=== PATIENT | female | born 1965 | race Caucasian/White ===

== ENCOUNTER → 2017-12-29 10:39 | Outpatient (CLI) | payer OTHER, SELFPAY ==
[2017-12-29 13:35] LABS: Microscopic, Urine URINE MICROSCOPIC (MICROSCOPIC)
[2017-12-29 13:42] LABS: Appearance,Urine CLEAR (Clear); Bilirubin,Urine Negative (Negative); Blood, Urine Negative (Negative); Color,Urine YELLOW (Yellow); Glucose,Urine (UA) Negative (Negative); Ketones,Urine Negative (Negative); Leukocyte Esterase,Urine TRACE (Negative); Nitrate,Urine Negative (Negative); Protein,Urine Negative (Negative); Specific Gravity, Urine <= 1.005 (1.005-1.030); Urobilinogen,Urine 0.2 EU/dl (0.2)
[2017-12-29 14:08] LABS: Alanine Aminotransferase 18 U/L (12-78); Albumin Level 3.8 gm/dL (3.4-5.0); Alkaline Phosphatase 95 U/L (46-116); Anion Gap 11.4 mEq/L (5-15); Aspartate Amino Transferase 15 U/L (15-37); Blood Urea Nitrogen 6 mg/dL (7-18); Calcium 9.2 mg/dL (8.5-10.1); Carbon Dioxide 30 mmol/L (21.0-32.0); Chloride 98 mmol/L (98-107); Chol/HDL Ratio 4.8 (1-3.5); Cholesterol 287 mg/dL (140-200); Creatinine,Serum 0.83 mg/dL (0.55-1.02); Estimated Glomerular Filt Rate 72 ml/min (>60); GFR (African American) 87 ML/MIN (>60); Globulin 3.8 gm/dl (1.3-3.2); Glucose 77 mg/dL (74-106); HDL Cholesterol 60 mg/dL (29-89); LDL Cholesterol 178 mg/dL (0-130); Potassium 4.4 mmoL/L (3.5-5.1); Sodium 135 mmol/L (136-145); T4 (Thyroxine) 10.5 ug/dl (4.7-13.3); Thyroid Stimulating Hormone 3.44 uIU/ml (0.358-3.740); Total Protein,Serum 7.6 gm/dL (6.4-8.2); Triglycerides 247 mg/dL (30-200); VLDL Cholesterol 49 mg/dL (0-40)
[2017-12-29 14:36] LABS: Bacteria,Urine 2+ /lpf; RBC,Urine Occasional #/hpf (0-3)
[2017-12-29 14:39] LABS: Basophils # 0.1 K/mm3 (0-0.2); Basophils % 0.6 % (0.1-2.0); Eosinophils # 0.2 K/mm3 (0.0-0.4); Eosinophils % 1.8 % (0.1-12.0); Hematocrit 44.3 % (37.0-47.0); Hemoglobin 14.4 g/dL (12.2-16.2); Lymphocytes # 2.5 K/mm3 (0.7-4.5); Lymphocytes % 30.8 K/mm3 (10-50); Mean Corpuscular HGB Conc 32.6 g/dL (31.8-35.4); Mean Corpuscular Hemoglobin 29.2 pg (27.0-31.2); Mean Corpuscular Volume 89.7 fl (81-99); Mean Platelet Volume 8.5 fl (7.4-10.4); Monocytes # 0.4 K/mm3 (0.1-1.0); Monocytes % 5.2 % (1.7-9.3); Neutrophils # 5.1 K/mm3 (1.8-7.8); Neutrophils % 61.5 % (37.0-80.0); Platelet Count 315 K/mm3 (142-424); Red Blood Count 4.94 M/mm3 (4.20-5.40); Red Cell Distribution Width 13.4 % (11.5-17.5); White Blood Count 8.2 K/mm3 (4.8-10.8)
[2018-01-01 06:15] LABS: Vitamin D 25 Hydroxy 35.5 ng/mL (30.0-100.0)
== END ==
PROVIDERS: Visit Provider Emergency Medicine
DX: F32.9 Major depressive disorder, single episode, unspecified (principal); G89.29 Other chronic pain
CPT/HCPCS: 80053; 80061; 81001; 82652; 84436; 84443; 85025; 87086

== ENCOUNTER → 2018-01-30 13:47 | Outpatient (CLI) | payer OTHER, SELFPAY ==
[2018-01-30 15:28] LABS: Amphetamine/Metha Screen,Urine Negative ng/mL (<1000); Barbiturates Screen,Urine Negative ng/mL (<200); Benzodiazepines Screen,Urine Negative ng/mL (<200); Cannabinoid Screen,Urine Negative ng/mL (<50); Cocaine Screen,Urine Negative ng/mL (<300); Methadone Screen,Urine Negative ng/mL (<300); Opiate Screen,Urine Negative ng/mL (<300); Phencyclidine Screen,Urine Negative ng/mL (<25)
== END ==
PROVIDERS: Visit Provider Nurse Practitioner Family
DX: Z79.899 Other long term (current) drug therapy (principal)
CPT/HCPCS: 80305

== ENCOUNTER → 2018-03-06 10:39 | Outpatient (CLI) | payer OTHER, SELFPAY ==
--- NOTE | 2018-03-06 10:41 | MR_ITS ---
MR lumbar spine wo con, X line MR 3-d myelogram/MRCP Ordering Physician: Chauncey Sam MD Patient Age: 52 years: Female HISTORY: ITS.REASON: low back pain TECHNIQUE: Sagittal STIR, T1, T2, axial T1 and T2. On 1.5T Siemens wide bore MRI. 3-D MR myelogram image set obtained & performed on MRI workstation. Additional sagittal thin section T2 weighted dataset obtained from this latter acquisition as well (---76 CPT) COMPARISON :CT abdomen and pelvis May 2009 FINDINGS Vertebral bodies are intact no compression fracture. No lesion evident. Subtle inhomogeneous T1 signal of the vertebral bodies nonspecific but could reflect anemia or history of smoking. No abnormal T2 signal foci. ... Slight inhomogeneous T1 signal could reflect some minor fatty marrow changes.Not uncommon finding and smokers or middle-aged females particularly if mild anemic The disc spaces are well hydrated well-maintained no disc herniation nor spinal stenosis. Generous caliber osseous spinal canal and thecal sac. The disc are intact at all levels with no remarkable disc bulge nor or protrusion. L5/S1. Disc intact mild facet arthropathy and hypertrophy L4/5. Disc intact. Mild facet arthropathy. Minimal fluid of both facet joints. No foramen widely patent here at all levels L3/4 disc unremarkable L2/3 disc intact unremarkabl L1/2 disc intact T12/L1 disc intact unremarkable as is T11/12. Conus ends appropriately at L1/L2 level. 3-D MRI myelogram image set demonstrates generous caliber spinal canal Kidney included and grossly unremarkable. No hydronephrosis There is some dependent fluid noted subcutaneous tissues posterior back, overlying the spinous processes IMPRESSION------- . 1. Lumbar spine intact. No significant appearing findings No disc protrusion, nor spinal stenosis.. Vertebral bodies and disc spaces intact. 2.. Only question perhaps scant early facet arthropathy changes at the lower L-spine. Unimpressive.\ 3. Nonspecific likely dependent fluid/ mild edema at subcutaneous fat of the lower back, overlying spinous processes... May merely reflect some prolonged supine positioning prior to the scan.
== END ==
PROVIDERS: PCP Emergency Medicine; Visit Provider Emergency Medicine
DX: M54.5 Low back pain (principal)
CPT/HCPCS: 72148; 76376

== ENCOUNTER → 2018-03-27 17:29 | Outpatient (CLI) | payer OTHER, SELFPAY ==
[2018-03-27 18:03] LABS: Basophils # 0.1 K/mm3 (0-0.2); Basophils % 0.8 % (0.1-2.0); Eosinophils # 0.2 K/mm3 (0.0-0.4); Eosinophils % 1.8 % (0.1-12.0); Hematocrit 43.1 % (37.0-47.0); Hemoglobin 14.1 g/dL (12.2-16.2); Lymphocytes # 2.4 K/mm3 (0.7-4.5); Mean Corpuscular HGB Conc 32.8 g/dL (31.8-35.4); Mean Corpuscular Hemoglobin 30.2 pg (27.0-31.2); Mean Corpuscular Volume 92.1 fl (81-99); Mean Platelet Volume 8.3 fl (7.4-10.4); Monocytes # 0.5 K/mm3 (0.1-1.0); Monocytes % 4.8 % (1.7-9.3); Neutrophils # 6.6 K/mm3 (1.8-7.8); Neutrophils % 67.6 % (37.0-80.0); Platelet Count 373 K/mm3 (142-424); Red Blood Count 4.68 M/mm3 (4.20-5.40); Red Cell Distribution Width 14.2 % (11.5-17.5); White Blood Count 9.7 K/mm3 (4.8-10.8)
[2018-03-27 18:20] LABS: Alanine Aminotransferase 16 U/L (12-78); Albumin Level 3.2 gm/dL (3.4-5.0); Albumin/Globulin Ratio 0.9 (1.1-1.8); Alkaline Phosphatase 102 U/L (46-116); Anion Gap 14.3 mEq/L (5-15); Aspartate Amino Transferase 18 U/L (15-37); Bilirubin,Total 0.6 mg/dL (0.2-1.0); Blood Urea Nitrogen 5 mg/dL (7-18); Calcium 8.7 mg/dL (8.5-10.1); Carbon Dioxide 28 mmol/L (21.0-32.0); Chloride 104 mmol/L (98-107); Estimated Glomerular Filt Rate 75 ml/min (>60); GFR (African American) 91 ML/MIN (>60); Globulin 3.6 gm/dl (1.3-3.2); Glucose 85 mg/dL (74-106); Potassium 4.3 mmoL/L (3.5-5.1); Sodium 142 mmol/L (136-145); Total Protein,Serum 6.8 gm/dL (6.4-8.2)
[2018-03-27 18:22] LABS: C-Reactive Protein < 0.2 mg/L (0.0-0.9)
[2018-03-27 19:50] LABS: Erythrocyte Sedimentation Rate 30 mm/hr (0-30)
== END ==
PROVIDERS: Visit Provider Emergency Medicine
DX: E78.5 Hyperlipidemia, unspecified (principal)
CPT/HCPCS: 80053; 85025; 85651; 86140

== ENCOUNTER → 2018-04-06 14:20 | Outpatient (CLI) | payer OTHER, SELFPAY ==
--- NOTE | 2018-04-06 14:21 | MR_ITS ---
MR head/brain wo con Ordering Physician: Chauncey Sam MD Patient Age: 52 years: Female HISTORY: ITS.REASON: falls, unsteady gait TECHNIQUE: MRI the brain without contrast . Multiplanar FLAIR, T1, T2 weighted images along with axial diffusion/ADC imaging performed on 1.5 T. Siemens, MRI. . COMPARISON :CT head without contrast 08/22/2012 FINDINGS MRI brain appears normal limits. No mass lesion. No mass effect. No infarct nor areas of recent ischemia evident. No territorial infarct. Normal anatomy. Normal cranial cervical junction. Normal sella turcica. Generous but normal pituitary for age... Suprasellar cistern clear. .. Regarding dizziness the posterior fossa appears satisfactory. CP angles are clear. Cranial nerve VII and VIII unremarkable on this standard survey study. IACs symmetric. .. Fourth ventricle appears normal. Cerebellum on appears satisfactory. Scant signal at the left cerebral peduncle most likely reflects a generous perivascular space.-No associated gliosis signal here on FLAIR images Also note few perivascular spaces at floor the basal ganglia bilaterally-these also lack FLAIR gliosis signal. Mastoid air cells are most part clear; with only some scant mucosal thickening,/very minor mastoid effusion involving a few of the mastoid air cells towards right mastoid tip. . visualized paranasal sinuses are clear. Moderate engorgement nasal turbinates with deviation nasal septum to the right but noted. IMPRESSION 1. MR brain with No significant appearing findings ..No mass lesion. No infarct nor ischemia. ... Generous but normal volume pituitary for age noted.. 2.. Regarding dizziness.: The CP angles are clear IACs unremarkable. & Posterior fossa satisfactory. Only note Scant mucosal thickening at right mastoid tip air cells, very minimal & not felt to be of significance Paranasal sinuses clear and unremarkable .
== END ==
PROVIDERS: PCP Emergency Medicine; Visit Provider Emergency Medicine
DX: R26.81 Unsteadiness on feet (principal); W19.XXXA Unspecified fall, initial encounter
CPT/HCPCS: 70551

== ENCOUNTER → 2018-06-15 11:16 | Outpatient (CLI) | payer OTHER, SELFPAY ==
[2018-06-15 11:54] LABS: Amphetamine/Metha Screen,Urine Negative ng/mL (<1000); Barbiturates Screen,Urine Negative ng/mL (<200); Benzodiazepines Screen,Urine Negative ng/mL (<200); Cannabinoid Screen,Urine Negative ng/mL (<50); Cocaine Screen,Urine Negative ng/mL (<300); Methadone Screen,Urine Negative ng/mL (<300); Opiate Screen,Urine Positive ng/mL (<300); Phencyclidine Screen,Urine Negative ng/mL (<25)
== END ==
PROVIDERS: Visit Provider Nurse Practitioner Family
DX: Z79.899 Other long term (current) drug therapy (principal)
CPT/HCPCS: 80305

== ENCOUNTER → 2018-06-27 15:16 | Outpatient (CLI) | payer OTHER, SELFPAY ==
--- NOTE | 2018-06-27 15:19 | NVE_ITS ---
Venous Exam Indications: 729.5 Pain in limb. IMPRESSIONS 1. There is no evidence of significant Reflux. 2. No evidence of deep or superficial vein thrombosis involving the left lower extremity Left lower extremity venous duplex evaluation. Doppler flow study including spectral analysis, color and penaloza scale imaging. Location: Vascular laboratory. Patient status: Outpatient. Tables: Venous flow and imaging: + +-------+ + Location Overall Flow properties + +-------+ + Left common femoral Patent Normal phasicity; spontaneous; normal augmentation; compressible + +-------+ + Left saphenofemoral junction Patent Compressible + +-------+ + Left profunda femoral Patent Compressible + +-------+ + Left femoral Patent Normal phasicity; spontaneous; normal augmentation; compressible + +-------+ + Left greater saphenous Patent Normal phasicity; spontaneous; normal augmentation; compressible + +-------+ + Left popliteal Patent Normal phasicity; spontaneous; normal augmentation; compressible + +-------+ + Left posterior tibial Patent Compressible + +-------+ + Left peroneal Patent Compressible + +-------+ + Left gastrocnemius Patent Compressible + +-------+ + Left soleal Patent Compressible + +-------+ + (Report amended ) Electronically signed by: Gómez Soto [id number]
[2018-06-27 16:21] LABS: Basophils # 0.1 K/mm3 (0-0.2); Basophils % 0.5 % (0.1-2.0); Eosinophils # 0.2 K/mm3 (0.0-0.4); Eosinophils % 1.3 % (0.1-12.0); Hematocrit 42.9 % (37.0-47.0); Hemoglobin 13.8 g/dL (12.2-16.2); Lymphocytes # 2.6 K/mm3 (0.7-4.5); Mean Corpuscular HGB Conc 32.1 g/dL (31.8-35.4); Mean Corpuscular Hemoglobin 29.2 pg (27.0-31.2); Mean Corpuscular Volume 90.9 fl (81-99); Mean Platelet Volume 7.2 fl (7.4-10.4); Monocytes # 0.8 K/mm3 (0.1-1.0); Monocytes % 4.1 % (1.7-9.3); Neutrophils # 14.8 K/mm3 (1.8-7.8); Neutrophils % 80.2 % (37.0-80.0); Platelet Count 340 K/mm3 (142-424); Red Blood Count 4.72 M/mm3 (4.20-5.40); Red Cell Distribution Width 13.6 % (11.5-17.5); White Blood Count 18.4 K/mm3 (4.8-10.8)
[2018-06-27 16:27] LABS: MANUAL DIFFERENTIAL MANUAL DIFFERENTIAL (MANUAL DIFF)
[2018-06-27 18:07] LABS: Eosinophils % 1 % (0-3); Lymphocytes % 11 % (10-50); Monocytes % 5 % (2-9); Neutrophils % 83 % (42-76); Total Cells Counted 100
[2018-06-27 18:08] LABS: Platelet Estimate Normal; RBC Morphology Normal
[2018-06-27 18:18] LABS: Erythrocyte Sedimentation Rate 21 mm/hr (0-30)
[2018-06-27 18:46] LABS: Alanine Aminotransferase 15 U/L (12-78); Albumin Level 2.8 gm/dL (3.4-5.0); Albumin/Globulin Ratio 0.8 (1.1-1.8); Alkaline Phosphatase 110 U/L (46-116); Anion Gap 15.7 mEq/L (5-15); Aspartate Amino Transferase 18 U/L (15-37); Bilirubin,Total 0.4 mg/dL (0.2-1.0); Blood Urea Nitrogen 6 mg/dL (7-18); Calcium 8.6 mg/dL (8.5-10.1); Carbon Dioxide 26 mmol/L (21.0-32.0); Chloride 103 mmol/L (98-107); Creatinine,Serum 0.86 mg/dL (0.55-1.02); Estimated Glomerular Filt Rate 69 ml/min (>60); GFR (African American) 84 ML/MIN (>60); Globulin 3.5 gm/dl (1.3-3.2); Glucose 102 mg/dL (74-106); Potassium 3.7 mmoL/L (3.5-5.1); Sodium 141 mmol/L (136-145); T4 (Thyroxine) 10.7 ug/dl (4.7-13.3); Thyroid Stimulating Hormone 6.03 uIU/ml (0.358-3.740); Total Protein,Serum 6.3 gm/dL (6.4-8.2); Uric Acid 4.8 mg/dL (2.6-7.2)
[2018-06-27 18:48] LABS: C-Reactive Protein < 0.2 mg/L (0.0-0.9)
== END ==
PROVIDERS: PCP Nurse Practitioner Family; Visit Provider Nurse Practitioner Family
DX: M79.605 Pain in left leg (principal); M79.89 Other specified soft tissue disorders; R53.83 Other fatigue
CPT/HCPCS: 36415; 80053; 84436; 84443; 84550; 85007; 85025; 85651; 86140; 93971

== ENCOUNTER → 2018-09-19 10:05 | Outpatient (CLI) | payer OTHER, SELFPAY ==
--- NOTE | 2018-09-19 10:18 | XR_ITS ---
XR knee LT 2V HISTORY: ITS.REASON: LEE KNEE PAIN ORDERING PHYSICIAN: Referral Provider, PATIENT AGE: 53 years COMPARISON: None FINDINGS: No fracture or dislocation. No lytic or blastic change. Normal mineralization. No significant arthritic changes evident. There is some minimal linear calcification along the lateral compartment of the knee suggesting minimal chondrocalcinosis IMPRESSION: Minimal chondrocalcinosis of the lateral meniscus otherwise negative
--- NOTE | 2018-09-19 10:18 | XR_ITS ---
XR knee RT 2V HISTORY: ITS.REASON: LEE KNEE PAIN ORDERING PHYSICIAN: Referral Provider, PATIENT AGE: 53 years COMPARISON: None FINDINGS: No fracture or dislocation. No lytic or blastic change. Normal mineralization. No significant arthritic changes evident. No other significant findings IMPRESSION: Negative Knee
== END ==
PROVIDERS: PCP Emergency Medicine; Visit Provider Nurse Practitioner Family
DX: M25.561 Pain in right knee (principal); M25.562 Pain in left knee
CPT/HCPCS: 73560

== ENCOUNTER → 2019-04-03 14:41 | Outpatient (CLI) | payer MEDICAID, SELFPAY ==
--- NOTE | 2019-04-03 14:44 | XR_ITS ---
PROCEDURE: XR LUMBAR SPINE 2-3V CLINICAL INDICATION: Lower back pain COMPARISON: No exams were available for comparison FINDINGS: There is mild thoracolumbar curvature convex right. No fracture or dislocation. No lytic or blastic change. The disc spaces are well preserved. IMPRESSION: No acute findings. Dictated by: Gómez Soto MD 04/03/2019 17:44 Electronically signed by Gómez Soto MD in [place] 04/03/2019 17:44
== END ==
PROVIDERS: PCP Emergency Medicine; Visit Provider Nurse Practitioner Family
DX: M54.5 Low back pain (principal)
CPT/HCPCS: 72100

== ENCOUNTER 2019-08-18 15:25 | Emergency (ER) | payer MEDICAID, SELFPAY ==
[2019-08-18 15:26] VITALS: BP 120/78; PULSE 94; RESP 21; TEMP 36.9; O2SAT 93; BMI 25.0
--- NOTE | 2019-08-18 15:50 | HMH.EDUTC ---
[facility] [place] Clinical Impression: Ankle edema, bilateral Disposition: Home, Self-Care Condition on Discharge: Good Instructions: Edema (Alternative Therapy), DI for Dependent Edema Additional Instructions: Go home and elevate feet above the level of your heart, prop on pillows or sit in recliner *Follow up at Dr Singh office in the morning at 9am be there for further evaluation and examination *Monitor your salt intake Low sodium diet Return if needed Straight to ER if any life threatening symptoms Referrals: Chauncey Sam MD [Primary Care Provider] - 08/19/19 9:00 am (Be at the office at 9am tomorrow) Time of Disposition: 16:14 Medical Decision Making - Cirilo Inquiry Pt receiving controlled substance: No Cirilo was queried for this patient: No Vital Signs: 08/18/19 15:26 Temperature 98.4 F Temperature Source Oral Pulse Rate [Radial] 94 H Respiratory Rate 21 Blood Pressure [Right Arm] 120/78 Blood Pressure Mean [Right Arm] 92 Blood Pressure Source [Right Arm] Automatic Cuff Blood Pressure Position [Right Arm] Sitting 02 Sat by Pulse Oximetry 93 L Oxygen Delivery Method Room Air Orders (Tests/Meds): ED MEDICATIONS Discontinued Medications Generic Name Dose Route Start Last Admin Trade Name Freq PRN Reason Stop Dose Admin Enoxaparin Sodium 40 mg 08/18/19 16:00 08/18/19 16:11 Lovenox 40mg/0.4ml Syringe SQ 08/18/19 16:01 40 mg ONCE ONE Administration Medical Decision Narrative: Discussed patient with Dr Sam and he advised prophylactic dose of Lovenox, and have her be at the office at 9am in the morning Lovenox dosed per pharmacy [facility] [place] HPI - General Stated complaint: feet,swollen Time Seen by Provider: 08/18/19 15:50 Mode of Arrival: Ambulatory Source of Information: Patient Limitations: No Limitations Description of Symptoms (Recalled from Triage Doc. by RN): bilateral feet swelling HEENT Symptoms (Recalled from RN notes): No Resp Symptoms (Recalled from RN notes): No Skin Symptoms (Recalled from RN notes): Yes MS Symptoms (Recalled from RN notes): No Functional Status (Recalled from RN notes): wnl - History of Present Illness Provider Complaint: Patient states that she has never had swelling in her feet States that she recently rode in a car to [place] with family and noticed after she got there that both her feet was swollen State that she wasnt able to do much there and they seemed to get a little better but today as she was riding home in the car they swelled up again so she came straight here States that she hasnt felt short of breath or had chest pain but was worried when her feet was still swollen - Related Data Home Medications Medication Instructions Recorded Confirmed hydrocodone 10 mg-acetaminophen 1 tab PO QHS PRN 06/15/18 05/25/19 325 mg tablet gabapentin 800 mg tablet 800 mg PO TID 09/07/18 05/25/19 Previous Rx's Medication Instructions Recorded amitriptyline 10 mg tablet 20 mg PO QHS #180 tab 01/30/19 methocarbamol 500 mg tablet 500 mg PO TID #90 tab 04/08/19 levothyroxine 75 mcg tablet 75 mcg PO DAILY #90 tab 05/09/19 sumatriptan succinate 100 mg tablet 100 mg PO DAILY PRN #9 tab 05/09/19 vilazodone 20 mg tablet 20 mg PO DAILY #30 tab 05/09/19 azithromycin 250 mg tablet 250 mg PO QDAY #6 tab 05/25/19 benzonatate 100 mg capsule 100 mg PO TID PRN #30 cap 05/25/19 atorvastatin 10 mg tablet 10 mg PO QHS #90 tab 06/07/19 ondansetron HCl 4 mg tablet 4 mg PO TID #30 tab 06/07/19 meloxicam 15 mg tablet See Rx Instructions .ROUTE 07/25/19 .COMPLEX #90 unspecified Allergies Allergy/AdvReac Type Severity Reaction Status Date / Time amoxicillin Allergy Verified 05/25/19 11:44 diphenhydramine Allergy Verified 05/25/19 11:44 [From Benadryl] Penicillins Allergy Verified 05/25/19 11:44 hydrocodone AdvReac Mild Itching Verified 05/25/19 11:44 oxycodone AdvReac Mild itching Verified 05/25/19 11:44 - Worker's Comp Is this
[2019-08-18 16:26] VITALS: BP 120/78; PULSE 94; RESP 21; TEMP 36.9; O2SAT 93
== END 2019-08-18 16:27 | disposition home or self-care (01) ==
PROVIDERS: Emergency Provider Nurse Practitioner; PCP Emergency Medicine
DX: R22.43 Localized swelling, mass and lump, lower limb, bilateral (principal); F33.1 Major depressive disorder, recurrent, moderate; E78.5 Hyperlipidemia, unspecified; G43.709 Chronic migraine without aura, not intractable, without status migrainosus; Z88.0 Allergy status to penicillin; Z88.5 Allergy status to narcotic agent; F17.210 Nicotine dependence, cigarettes, uncomplicated; Z79.899 Other long term (current) drug therapy
CPT/HCPCS: 96372; 99201

== ENCOUNTER → 2019-08-19 11:00 | Outpatient (CLI) | payer MEDICAID, SELFPAY ==
--- NOTE | 2019-08-19 11:02 | CA_ITS ---
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 Indications Lower Extremity Edema: edema Vein Imaging CFV (R): compressive, spontaneous, phasic, augmentation FEM (R): compressive, spontaneous, phasic, augmentation POP (R): compressive, spontaneous, phasic, augmentation PTV (R): Compressible GSV (R): Compressible Peroneals (R):Compressible CFV (L): compressive, spontaneous, phasic, augmentation FEM (L): compressive, spontaneous, phasic, augmentation POP (L): compressive, spontaneous, phasic, augmentation PTV (L): Compressible GSV (L): Compressible Peroneals (L):Compressible GAS (L): Compressible Findings No evidence of DVT or superficial thrombophlebitis in the veins scanned of the right lower extremity. No evidence of DVT or superficial thrombophlebitis in the veins scanned of the left lower extremity. Conclusion No evidence of DVT or superficial thrombophlebitis in the veins scanned of the right lower extremity. No evidence of DVT or superficial thrombophlebitis in the veins scanned of the left lower extremity. Electronically signed by : Gómez Soto MD 08/19/2019 16:15:36
[2019-08-19 12:35] LABS: Basophils # 0.2 K/mm3 (0-0.2); Basophils % 1.3 % (0.1-2.0); Eosinophils # 0.2 K/mm3 (0.0-0.4); Eosinophils % 1.2 % (0.1-12.0); Hematocrit 47.5 % (37.0-47.0); Hemoglobin 15.3 g/dL (12.2-16.2); Lymphocytes # 2.5 K/mm3 (0.7-4.5); Lymphocytes % 19.3 % (10-50); Mean Corpuscular HGB Conc 32.3 g/dL (31.8-35.4); Mean Corpuscular Hemoglobin 30.1 pg (27.0-31.2); Mean Corpuscular Volume 93.1 fl (81-99); Mean Platelet Volume 7.9 fl (7.4-10.4); Monocytes # 0.5 K/mm3 (0.1-1.0); Monocytes % 3.7 % (1.7-9.3); Neutrophils # 9.7 K/mm3 (1.8-7.8); Neutrophils % 74.4 % (37.0-80.0); Platelet Count 287 K/mm3 (142-424); Red Cell Distribution Width 14.3 % (11.5-17.5)
[2019-08-19 12:58] LABS: Erythrocyte Sedimentation Rate 10 mm/hr (0-30)
[2019-08-19 13:01] LABS: INR 0.99 (0.9-1.1); Prothrombin Time 10.2 seconds (9.4-11.8)
[2019-08-19 13:03] LABS: Alanine Aminotransferase 10 U/L (12-78); Albumin Level 3.7 g/dl (3.5-5.0); Albumin/Globulin Ratio 1.2 (1.1-1.8); Alkaline Phosphatase 111 U/L (38-126); Anion Gap 7.8 mEq/L (5-15); Aspartate Amino Transferase 21 U/L (14-36); Bilirubin,Total 0.4 mg/dl (0.2-1.3); Blood Urea Nitrogen 7 mg/dl (7-17); Calcium 9.3 mg/dl (8.4-10.2); Carbon Dioxide 34 mmol/L (22.0-30.0); Chloride 102 mmol/L (98-107); Chol/HDL Ratio 3.5 (1-3.5); Cholesterol 201 mg/dl (140-200); Estimated Glomerular Filt Rate 65 ml/min (>60); GFR (African American) 79 ML/MIN (>60); Glucose 82 mg/dl (74-100); HDL Cholesterol 58 mg/dl (40-60); Potassium 4.8 mmoL/L (3.5-5.1); Sodium 139 mmol/L (136-145); Total Protein,Serum 6.7 g/dl (6.3-8.2); Triglycerides 211 mg/dl (30-150); VLDL Cholesterol 42 mg/dL (0-40)
[2019-08-19 13:15] LABS: C-Reactive Protein 3.6 mg/L (0-4); Direct LDL Cholesterol 102.23 mg/dL (100-129)
[2019-08-19 13:23] LABS: T4 (Thyroxine) 12.4 ug/dl (5.53-11.0)
[2019-08-19 13:36] LABS: Thyroid Stimulating Hormone 2.62 uIU/mL (0.465-4.68)
[2019-08-20 09:52] LABS: Vitamin D 25 Hydroxy 27.2 ng/mL (30.0-100.0)
[2019-08-20 13:09] LABS: Sjogren's Anti-SS-A <0.2 AI (0.0-0.9)
[2019-08-20 13:41] LABS: Sjogren's Anti-SS-B <0.2 AI (0.0-0.9)
[2019-08-22 10:06] LABS: Antinuclear Antibodies (ANA) Negative
== END ==
LOC: RAD 11:02 → RT 11:07
PROVIDERS: PCP Emergency Medicine; Visit Provider Physician Assistant
DX: M25.471 Effusion, right ankle (principal); M25.472 Effusion, left ankle; E05.00 Thyrotoxicosis with diffuse goiter without thyrotoxic crisis or storm; M25.50 Pain in unspecified joint; R68.2 Dry mouth, unspecified
CPT/HCPCS: 36415; 80053; 80061; 82652; 84436; 84443; 85025; 85610; 85651; 86038; 86140; 86235; 93970

== ENCOUNTER 2019-11-10 16:30 | Inpatient (IN) | payer MEDICAID, SELFPAY ==
[2019-11-10] VITALS (10 sets, daily range): BP systolic 110–151; BP diastolic 76–100; PULSE 70–98; RESP 12–19; TEMP 36.6–37.5; O2SAT 60–98; BMI 25.7; BMI 27.3
--- NOTE | 2019-11-10 16:35 | PC.NURSE ---
NOTIFIED MD OF PT O2 SATS, RT CALLED, PT PLACED ON 4L NC, ABG OBTAINED PER RT.
--- NOTE | 2019-11-10 17:05 | HMH.EDGENADL ---
ED Disposition Clinical Impression: Respiratory failure with hypoxia Qualifiers: Chronicity: acute Qualified Code(s): J96.01 - Acute respiratory failure with hypoxia Altered mental status Qualifiers: Altered mental status type: somnolence Qualified Code(s): R40.0 - Somnolence Disposition: Admitted As Inpatient Condition on Discharge: Serious - Critical Care Critical Care Time: Yes Attestation: On 11/10/19, the high probability of a clinically significant, sudden or life threatening deterioration of the following system(s) required my full and direct attention, intervention and personal management. The time I documented below is in addition to time spent performing reported procedures but includes the following listed in this critical care notation. Vital system(s) involved:: Respiratory Failure My critical care processes included: Assessment & monitoring of V/S, Initial and Re-exams, Data Review/Interpretation, Coordinating Care, Medication Orders and management, Documentation Medical Decision Making - Medical Records Medical records reviewed: Yes: I reviewed the patient's medical records. - Cirilo Inquiry Pt receiving controlled substance: No Vital Signs: 11/10/19 16:31 11/10/19 17:01 11/10/19 17:30 Temperature 99.5 F Temperature Source Rectal Pulse Rate [Right] 96 H 98 H 86 Respiratory Rate 12 17 14 Blood Pressure [Right Arm] 110/76 112/76 140/100 H Blood Pressure Mean [Right Arm] 87 88 113 02 Sat by Pulse Oximetry 60 L 98 92 L Oxygen Delivery Method Room Air Oxygen Flow Rate (LPM) 11/10/19 18:00 11/10/19 19:00 Temperature Temperature Source Pulse Rate [Right] 88 Respiratory Rate 17 Blood Pressure [Right Arm] 121/78 Blood Pressure Mean [Right Arm] 92 02 Sat by Pulse Oximetry 85 L Oxygen Delivery Method Nasal Cannula Vapotherm Oxygen Flow Rate (LPM) 5 20 - Lab Data Lab results reviewed: Yes: I reviewed the patient's lab results. Lab Results 11/10/19 16:50: POC Glucose 171 H 11/10/19 17:05: WBC 14.2 H, RBC 5.04, Hgb 14.8, Hct 46.5, MCV 92.3, MCH 29.4, MCHC 31.9, RDW 15.0, Plt Count 305, MPV 7.8, Neut % (Auto) 75.8, Lymph % (Auto) 18.5, Wirt % (Auto) 4.9, Eos % (Auto) 0.2, Baso % (Auto) 0.6, Neut # (Auto) 10.8 H, Lymph # (Auto) 2.6, Wirt # (Auto) 0.7, Eos # (Auto) 0.0, Baso # (Auto) 0.1 11/10/19 17:05: Sodium 140, Potassium 4.0, Chloride 98, Carbon Dioxide 31 H, Anion Gap 15.0, BUN 12, Creatinine 0.80, Estimated Creat Clear 86, Estimated GFR 75, Est GFR ( Amer) 90, Glucose 154 H, Calcium 8.7, Total Bilirubin 1.1, AST 109 H, ALT 37, Alkaline Phosphatase 118, Troponin I 0.07 H, Total Protein 6.9, Albumin 3.7, Globulin 3.2, Albumin/Globulin Ratio 1.2, Salicylates < 1.0 L, Acetaminophen < 10 L 11/10/19 17:05: Urine Opiates Screen Positive H, Urine Methadone Screen Negative, Ur Barbituates Screen Negative, Ur Phencyclidine Scrn Negative, Ur Amphetamines Screen Negative, U Benzodiazepines Scrn Negative, Urine Cocaine Screen Negative, U Marijuana (THC) Screen Negative 11/10/19 17:05: Plasma/Serum Alcohol < 10 11/10/19 17:05: Urine Color Yellow, Urine Appearance Clear, Urine pH 5.5, Ur Specific [place] >= 1.030, Urine Protein Trace, Urine Glucose (UA) Negative, Urine Ketones Negative, Urine Blood Negative, Urine Nitrate Negative, Urine Bilirubin Negative, Urine Urobilinogen 0.2, Ur Leukocyte Esterase Negative, Urine RBC Occasional, Urine WBC Occasional, Ur Squamous Epith Cells 3-5, Urine Bacteria None, Hyaline Casts 3-5, Urine Mucus 1+ 11/10/19 17:05: SARS-CoV-2 IgG Ab (Rapid) Negative, SARS-CoV-2 IgM Ab (Rapid) Negative 11/10/19 17:05: D-Dimer 0.94 11/10/19 17:15: Lactate 3.4 H 11/10/19 17:20: Specimen Source R/r, O2 % 5, ABG pH 7.41, ABG pCO2 46.2 H, ABG pO2 46.2 L, ABG HCO3 28.3 H, ABG Total CO2 29.7 H, ABG O2 Saturation 85 L*, ABG Base Excess 3.6 H, Gómez Test Y Result diagrams: 11/10/19 17:05 11/10/19 17:05 Orders (Tests/Meds): ED MEDICATIONS Generic Name Dose Route Start Last Ad
--- NOTE | 2019-11-10 17:11 | ECG_ITS ---
APPROVED REPORT Exam: Resting ECG HR:92 bpm ECG Measurements Heart Rate 92 AXES OK 170 P 53 QRSd 84 QRS -3 QT 388 T 3 QTc 479 <Conclusion> Normal sinus rhythm Nonspecific ST and T wave abnormality Prolonged QT Abnormal ECG Electronically signed by : Leo Nieto, 11/11/2019 06:13:52
--- NOTE | 2019-11-10 17:11 | CT_ITS ---
PROCEDURE: CT HEAD/BRAIN WO CON Referring Doctor: Stevenson Brizuela Patient Age:54Y CLINICAL INDICATION: falls, AMS Frequent falls severe AMS, very confused cannot give history COMPARISON: MR BRAINWO MR head/brain wo con from 04/06/2018 TECHNIQUE: Routine axial images were obtained. No IV contrast. All CT scans at the facility use one or more dose reduction, viz: automated exposure control, ma/kV adjustment per patient size (including targeted exams where dose is matched to indication, i.e. head), or iterative reconstruction technique. FINDINGS: No acute intracranial findings. No intracranial hemorrhage. No hydrocephalus.The ventricles and basal cisterns appear clear and satisfactory. No mass or midline shift nor mass effect. No subdural or extra-axial fluid collection is evident. Posterior fossa unremarkable. No significant new findings versus the March 2018 MRI brain Skull intact- calvarium unremarkable appearance. Nomastoid effusions. Mastoid air cells are well developed and clear. Middle ear clear. IAC's symmetric. Cerumen at the external auditory canals bilaterally incidentally noted Nosinus air-fluid level. Visualized portions of the paranasal sinuses and orbits unremarkable. IMPRESSION: No acute intracranial findings Dictated by: Matias Alford MD 11/10/2019 18:11 Matias Alford MD in [place] 11/10/2019 18:11
--- NOTE | 2019-11-10 17:12 | XR_ITS ---
PROCEDURE: XR CHEST PORTABLE Referring Doctor: Stevenson Brizuela Patient Age:54Y CLINICAL HISTORY: hypoxia, dyspnea. Leukocytosis COMPARISON: No exams were available for comparison FINDINGS: . Supine AP portable chest but . Linear area of likely atelectasis seen at the right mid lung. Injury to this linear area at the right lung base there is mild accentuation of markings reflecting atelectasis and possible minimal early infiltrate. There is also subtle accentuation markings at the left lung base with similar considerations. Borderline cardiomegaly, with mild prominence of pulmonary vascularity. Of some mild vascular prominence and cephalization due in part to the the supine CXR projection of but would question possible early mild vascular congestion. Of previous anterior fusion at lower C-spine. Chest wall intact. Old healed right clavicular fracture with mild deformity. IMPRESSION: Mild bibasilar airspace disease.-Most evident on the right Linear atelectasis right mid lung with mild accentuation markings suggesting subtle airspace disease inferior to this at at right lung base. Borderline cardiomegaly with mild vascular engorgement, in part accentuated by the supine projection Dictated by: Matias Alford MD 11/10/2019 20:30 Matias Alford MD in [place] 11/10/2019 20:30
--- NOTE | 2019-11-10 17:20 | PC.NURSE ---
PT PULLING AT F/C, DAUGHTER REQUEST CATH BE REMOVED, F/C REMOVED
[2019-11-10 17:22] LABS: ABG Base Excess 3.6 mmol/L (-2.4-2.3); ABG HCO3 28.3 mmhg (22.0-26.0); ABG Oxygen Saturation 85 % (90-100); ABG PCO2 46.2 mmhg (35.0-45.0); ABG PH 7.41 mmol/L (7.35-7.45); ABG PO2 46.2 mmhg (80-100); ABG TCO2 29.7 mmhg (23-27); Allen's Test Y; Oxygen 5 %; Source R/R
[2019-11-10 17:22] LABS: Microscopic, Urine URINE MICROSCOPIC (MICROSCOPIC)
[2019-11-10 17:23] LABS: Appearance,Urine CLEAR (Clear); Bilirubin,Urine Negative (Negative); Blood, Urine Negative (Negative); Color,Urine YELLOW (Yellow); Glucose,Urine (UA) Negative (Negative); Ketones,Urine Negative (Negative); Leukocyte Esterase,Urine Negative (Negative); Nitrate,Urine Negative (Negative); PH,Urine 5.5 (5.0-8.5); Protein,Urine TRACE (Negative); Specific Gravity, Urine >= 1.030 (1.005-1.030); Urobilinogen,Urine 0.2 EU/dl (0.2)
[2019-11-10 17:24] LABS: POC Glucose,Bedside 171 (70-110)
[2019-11-10 17:25] LABS: Chloride 98 mmol/L (98-107); Sodium 140 mmol/L (136-145)
[2019-11-10 17:28] LABS: Alanine Aminotransferase 37 U/L (12-78); Albumin Level 3.7 g/dl (3.5-5.0); Albumin/Globulin Ratio 1.2 (1.1-1.8); Alkaline Phosphatase 118 U/L (38-126); Aspartate Amino Transferase 109 U/L (14-36); Bilirubin,Total 1.1 mg/dl (0.2-1.3); Blood Urea Nitrogen 12 mg/dl (7-17); Calcium 8.7 mg/dl (8.4-10.2); Carbon Dioxide 31 mmol/L (22.0-30.0); Creatinine Clearance Estimated 86 mL/min (50-200); Estimated Glomerular Filt Rate 75 ml/min (>60); GFR (African American) 90 ML/MIN (>60); Globulin 3.2 g/dL (1.3-3.2); Glucose 154 mg/dl (74-100); Total Protein,Serum 6.9 g/dl (6.3-8.2)
--- NOTE | 2019-11-10 17:29 | PC.NURSE ---
DAUGHTER REMAINS AT BEDSIDE, STATED SHE IS VERY ANXIOUS AND MORE AWAKE AFTER RECEIVING THE NARCAN
[2019-11-10 17:30] LABS: Basophils # 0.1 K/mm3 (0-0.2); Basophils % 0.6 % (0.1-2.0); Eosinophils % 0.2 % (0.1-12.0); Hematocrit 46.5 % (37.0-47.0); Hemoglobin 14.8 g/dL (12.2-16.2); Lymphocytes # 2.6 K/mm3 (0.7-4.5); Lymphocytes % 18.5 % (10-50); Mean Corpuscular HGB Conc 31.9 g/dL (31.8-35.4); Mean Corpuscular Hemoglobin 29.4 pg (27.0-31.2); Mean Corpuscular Volume 92.3 fl (81-99); Mean Platelet Volume 7.8 fl (7.4-10.4); Monocytes # 0.7 K/mm3 (0.1-1.0); Monocytes % 4.9 % (1.7-9.3); Neutrophils # 10.8 K/mm3 (1.8-7.8); Neutrophils % 75.8 % (37.0-80.0); Platelet Count 305 K/mm3 (142-424); Red Blood Count 5.04 M/mm3 (4.20-5.40); White Blood Count 14.2 K/mm3 (4.8-10.8)
[2019-11-10 17:32] LABS: Acetaminophen < 10 ug/ml (10-30); Ethyl Alcohol < 10 mg/dl (0-10); RBC,Urine Occasional #/hpf (0-3); Salicylate < 1.0 mg/dL (2.0-20.0); WBC,Urine Occasional #/hpf (0-3)
--- NOTE | 2019-11-10 17:32 | PC.NURSE ---
PT TO RAD
[2019-11-10 17:33] LABS: Mucus,Urine 1+ /lpf
[2019-11-10 17:36] LABS: Barbiturates Screen,Urine Negative ng/ml (<200); Benzodiazepines Screen,Urine Negative ng/ml (<200)
[2019-11-10 17:37] LABS: Amphetamine/Metha Screen,Urine Negative ng/ml (<1000)
[2019-11-10 17:38] LABS: Cannabinoid Screen,Urine Negative ng/ml (<50); Cocaine Screen,Urine Negative ng/ml (<300)
[2019-11-10 17:39] LABS: Methadone Screen,Urine Negative ng/ml (<300); Opiate Screen,Urine Positive ng/ml (<300)
[2019-11-10 17:39] LABS: Lactic Acid 3.4 mmol/L (0.7-2.1)
[2019-11-10 17:40] LABS: Phencyclidine Screen,Urine Negative ng/ml (<25); Troponin I 0.07 ng/ml (0.00-0.034)
--- NOTE | 2019-11-10 17:52 | PC.NURSE ---
PT RETURNED FROM RAD
--- NOTE | 2019-11-10 18:05 | PC.NURSE ---
REMOVED VENTI MASK PER FAMILY REQUEST AND ATTEMPTED TO DO 5L NC AND IS NOT TOLERATING IT, SATS REMAINS IN THE MIDS 80S, NOTIFIED RT AND TO TRY VAPOTHERM PER MD ORDER
[2019-11-10 18:17] LABS: Coronavirus 19 IgG Antibody Negative (Negative); Coronavirus 19 IgM Antibody Negative (Negative)
[2019-11-10 19:04] LABS: D-Dimer 0.94 ug/mL (0.15-8.0)
--- NOTE | 2019-11-10 20:45 | PC.NURSE ---
During report, KAVON Thakkar stated that even though pt met sepsis criteria, there was no source of infection and MD Sam and MD Brizuela were both aware. Pt did receive a liter of fluids in the ED and had Levofloxacin in the ED as well. Pt has not had any hypotensive episodes this shift and has scheduled Levofloxacin q24h.
--- NOTE | 2019-11-10 21:01 | PC.NURSE ---
PT ARRIVED TO THE FLOOR VIA STRETCHER WITH STAFF FROM ED AT 2100.
[2019-11-10 21:08] LABS: Troponin I 0.08 ng/ml (0.00-0.034)
[2019-11-10 21:24] LABS: Reflex Lactic Add Lactic Reflex
[2019-11-10 22:17] LABS: Lactic Acid Follow Up (RFLX 1) 2.8 mmol/L (0.7-2.1)
[2019-11-10 23:42] LABS: Reflex Lactic (2 hrs) Add Lactic Reflex
[2019-11-10 23:56] LABS: Lactic Acid Follow up (RFLX 2) 3.1 mmol/L (0.7-2.1); Troponin I 0.08 ng/ml (0.00-0.034)
[2019-11-11] VITALS: BP 152/70; PULSE 80; PULSE 88; RESP 17; TEMP 37.4
[2019-11-11 04:00] VITALS: PULSE 70
--- NOTE | 2019-11-11 05:21 | PC.NURSE ---
Pt has been A&O to name, place and situation but not time. Pt has been up to the BSC multiple times with x2 assist with minimal output. Urine is clear and yellow. Staff has been into room multiple times due to pt pulling vapotherm, color television console monitor leads and cont pulse ox off. Daughter has remained at bedside this evening. Bed alarm on and all safe measures in place. Will continue to monitor.
[2019-11-11 06:07] VITALS: BMI 27.6
[2019-11-11 06:30] VITALS: PULSE 83; PULSE 93
--- NOTE | 2019-11-11 07:54 | P.CONPHA_ITS ---
[facility] [place] Pharmacy VTE Monitoring - Patient Demographics Admission date: 11/11/19 Report Date: 11/11/19 Time: 07:54 Allergies/Adverse Reactions: Patient Allergies amoxicillin Allergy (Verified 08/19/19 09:04) diphenhydramine [From Benadryl] Allergy (Verified 08/19/19 09:04) Penicillins Allergy (Verified 08/19/19 09:04) hydrocodone Adverse Reaction (Mild, Verified 08/19/19 09:04) Itching oxycodone Adverse Reaction (Mild, Verified 08/19/19 09:04) itching Height: 1.63 m Weight: 73.301 kg Patient Problems: Current Active Problems (Last Updated 01/02/18 @ 09:13 by LOVELY Watts) Respiratory failure with hypoxia (Acute) Altered mental status (Acute) - VTE Risk Labs: VTE Related Lab Results Hgb 14.8 g/dL (12.2-16.2) 11/10/19 17:05 Hct 46.5 % (37.0-47.0) 11/10/19 17:05 Plt Count 305 K/mm3 (142-424) 11/10/19 17:05 BUN 12 mg/dl (7-17) 11/10/19 17:05 Creatinine 0.80 mg/dl (0.52-1.04) 11/10/19 17:05 Estimated Creat Clear 86 mL/min (50-200) 11/10/19 17:05 Was VTE Risk Assessment Performed: Yes Clinical Trial Participant: No - Prophylaxis VTE Prophylaxis Ordered?: Yes Types of VTE Prophylaxis: TEDS Knee High
[2019-11-11 08:00] VITALS: BP 141/70; PULSE 80; PULSE 94; RESP 19; TEMP 37.2; O2SAT 94
[2019-11-11 09:47] VITALS: O2SAT 76
--- NOTE | 2019-11-11 09:47 | PC.NURSE ---
O2 sat 76% on RA
--- NOTE | 2019-11-11 09:53 | SW/DCPLANNER ---
Addendum entered by Tracey Lopez 11/11/19 10:37: [facility] has delivered portable tank to [facility] for this patient. Original Note: Patient is signing out AMA this morning. Patient was currently on Vapotherm and will require home O2 at discharge. Patient stated that she will only wait for a little bit before leaving [facility]. I have explained to patient that [facility] will review patient information/order for home home O2 and portable. Once [facility] reviews information I will make sure patient is still present so they can deliver portable to [facility] and concentrator to home.
--- NOTE | 2019-11-11 09:54 | PC.NURSE ---
Dr. Ramirez, Jodee Desia and I met with pt a 2nd time this AM secondary to pt wanting to leave AMA. Pt is confused, disoriented and adamant that she leave. Her O2 sat on RA is 76%. Education provided on disease and that resp distress is likely if she leaves AMA as she has been on 65% FiO2 Vapotherm. Pt continues to be adamant that she leave. Daughter @ BS but is unable to convince her to stay. Case management to work with [facility] to get O2 in the home. AMA paper signed by pt.
--- NOTE | 2019-11-11 11:03 | PC.NURSE ---
pt hooked up to 2L NC via etank and [facility] staff transported her outside for daughter to take her home. Pt still wishes to sign out AMA. Additional education provided. Pt's response, I live 2 blocks from ambulance, I'll call 911 . Pt refused all care including meds this morning. PCP aware.
--- NOTE | 2019-11-11 18:38 | HMH.HPDC ---
General - General Admission date:: 11/10/19 Discharge date: 11/11/19 *Admission Date: 11/11/19 *Chief complaint: mental status changes, desaturation *History of present illness: Patient presented to the emergency room for evaluation after being acutely ill. When the patient arrived she would not speak at all to the nurse. When I examined her her speech was slurred and her mental status was altered, probably from a pharmacologic agent. The patient arrived with an initial pulse oximetry 58% on room air. She came up to the low 90s on nasal cannula oxygen 4 L, but then would drift back down into the upper 80s when she was not stimulated and would drift off to sleep. Switched to a Ventimask. Narcan was administered. The patient has become restless and fidgety. Demanding her catheter be taken out. Trying to take her IV out. Pupil size essentially unchanged. History is obtained primarily from the daughter. Daughter says that today the patient seems out of it, has fallen a couple of times, seems generally weak unable to stand unable to do things up with her hands. The patient says she feels loopy. She denies any other complaints. Her only new medication is a new muscle relaxer for back spasms that she began over a month ago. She is on pain medication but says she never takes any excess pain medication. Daughter is not aware of any recent illness, no cough, fever, vomiting, diarrhea. No known exposures, including no known exposure to COVID-19. Daughter says patient does not leave her house. She is a smoker. She does not have COPD. Daughter says that she is on many medications, but she does not know the medications. Primary care provider is Dr. Sam. opiate screen was positive [facility] History Medical History: Reports:: Depression, Migraine Denies:: Cancer, Diabetes Mellitus Type 1, Diabetes Mellitus Type 2, MRSA *Have you ever received a pneumonia vaccine?: No *Have you received a flu vaccine this season?: No Other Medical History: Reports: Arthritis, Thyroid Disease, Other Other Surgeries: Yes: Tubal Ligation, Other Amputation: No Fractures: Yes - *Social History Last grade of school completed: GED Smoking Status: Current every day smoker Tobacco Type: cigarettes # Packs/Day (cigarettes): 1 Alcohol Intake: never Alcohol Intake Frequency:: other Substance Use Type: denies use *Occupational Status:: disabled Housing: house Household Members: none *Travel in the last 8 weeks: Inside the [place] - Psychiatric History Pschychiatric History:: Reports:: Depression Family Hx:: Cancer Review of Systems - Constitutional Reports fatigue - Eyes Denies bulging eyes - ENT Reports dizziness - *Cardiovascular Denies chest pain - *Respiratory Reports shortness of breath with activity - *Gastrointestinal Denies abdominal pain - *Genitourinary Reports difficulty urinating, Denies painful urination - *Musculoskeletal Reports abnormal walking - Integumentary/Breasts Reports unusual bruising - *Neurologic Reports abnormal walking, Reports unsteadiness, Reports memory loss, Reports dizziness, Reports weakness - Psychiatric Reports mood swings - Endocrine Denies rapid, pounding, or irregular heartbeat - Hematologic/Lymphatic Reports easy bruising - Allergic/Immunologic Reports wheezing Exam Vital signs and Labs for Last 24 Hours: Temp Pulse Resp BP Pulse Ox 98.9 F 94 H 19 141/70 H 76 L 11/11/19 08:00 11/11/19 08:00 11/11/19 08:00 11/11/19 08:00 11/11/19 09:47 Laboratory Results - last 24 hr 11/10/19 17:05: D-Dimer 0.94 11/10/19 20:20: Troponin I 0.08 H 11/10/19 21:35: Lactate 2.8 H 11/10/19 23:22: Troponin I 0.08 H 11/10/19 23:22: Lactate 3.1 H I & O for Last 24 hours: Intake & Output 11/08/19 11/09/19 11/10/19 11/11/19 23:59 23:59 23:59 23:59 Intake Total 1149 930 / 930 Balance 1149 930 / 930 Weight 160 lb 4 oz 161 lb 9.6 oz - C
== END 2019-11-11 11:10 | disposition home or self-care (01) | DRG 195 ==
LOC: ER 18:47 → 2ND 22:33
PROVIDERS: Admitting Provider Emergency Medicine; Emergency Provider Emergency Medicine; PCP Emergency Medicine; Visit Provider Emergency Medicine
DX: J18.9 Pneumonia, unspecified organism (principal); Z72.0 Tobacco use; Z79.899 Other long term (current) drug therapy; Z88.5 Allergy status to narcotic agent; Z88.0 Allergy status to penicillin; E03.9 Hypothyroidism, unspecified
CPT/HCPCS: 36415; 70450; 71045; 80053; 80305; 80329; 81001; 82803; 82962; 83605; 84484; 85025; 85378; 86328; 87040; 93005; 94640; 96365; 96367; 96375; 99285; J1956; J2310

== ENCOUNTER → 2019-11-18 10:03 | Outpatient (CLI) | payer MEDICAID, SELFPAY ==
--- NOTE | 2019-11-18 10:18 | XR_ITS ---
PROCEDURE: XR CHEST 2V CLINICAL HISTORY: pneumonia Follow-up pneumonia COMPARISON: CR XR CHEST PORTABLE from 11/10/2019 FINDINGS: The cardiomediastinal silhouette and pulmonary vascularity are within normal limits. Right lower lobe infiltrate is once again noted and has shown some improvement. Left lower lobe airspace disease also showing improvement. There is a small left-sided pleural effusion. Upper lobes are clear. No acute bony findings. Bone plate is present along the lower cervical spine. There is some nonspecific right apical pleural thickening IMPRESSION: Persistent but improving bilateral lower lobe pneumonia with interval development of small left pleural effusion Dictated by: Gómez Soto MD 11/18/2019 10:49 Gómez Soto MD in [place] 11/18/2019 10:49
--- NOTE | 2019-11-18 10:18 | XR_ITS ---
PROCEDURE: XR FOOT LT MIN 3V CLINICAL INDICATION: recent fall Posttraumatic pain and bruising COMPARISON: No exams were available for comparison FINDINGS: There are mildly displaced fractures involving the distal aspects/neck of the 2nd 3rd 4th and 5th metatarsals. There is mild lateral angulation and lateral displacement of the distal fracture fragments of 3-4 mm. There is some comminution at the fracture slight at the 3rd metatarsal fracture. IMPRESSION: Acute mildly displaced fractures at the distal aspect of the 2nd 3rd 4th and 5th metatarsals Dictated by: Gómez Soto MD 11/18/2019 10:46 Gómez Soto MD in [place] 11/18/2019 10:46
[2019-11-18 11:36] LABS: Troponin I 0.02 ng/ml (0.00-0.034)
[2019-11-18 11:55] LABS: Chloride 89 mmol/L (98-107); Sodium 138 mmol/L (136-145)
[2019-11-18 11:56] LABS: Potassium 3.2 mmoL/L (3.5-5.1)
[2019-11-18 11:58] LABS: Blood Urea Nitrogen 9 mg/dl (7-17); Estimated Glomerular Filt Rate 52 ml/min (>60); GFR (African American) 63 ML/MIN (>60)
[2019-11-18 11:59] LABS: Calcium 9.5 mg/dl (8.4-10.2); Glucose 108 mg/dl (74-100)
[2019-11-18 12:06] LABS: Anion Gap 12.2 mEq/L (5-15)
[2019-11-18 12:28] LABS: Carbon Dioxide 40 mmol/L (22.0-30.0)
== END ==
PROVIDERS: PCP Emergency Medicine; Visit Provider Physician Assistant
DX: R07.9 Chest pain, unspecified (principal); R06.00 Dyspnea, unspecified; R94.31 Abnormal electrocardiogram [ECG] [EKG]; R00.0 Tachycardia, unspecified; J18.9 Pneumonia, unspecified organism; F17.200 Nicotine dependence, unspecified, uncomplicated; M79.672 Pain in left foot; T14.8XXA Other injury of unspecified body region, initial encounter; R60.9 Edema, unspecified
CPT/HCPCS: 36415; 71046; 73630; 80048; 84484

== ENCOUNTER → 2019-11-26 07:20 | Outpatient (CLI) | payer MEDICAID, SELFPAY ==
--- NOTE | 2019-11-26 | CA_ITS ---
APPROVED REPORT Exam: Pharmacologic Technologist: Lisbeth Shaikh, Ht: 5 ft 5 in Wt: 155 lbs BSA: 1.77 m2 HR: 100 bpm BP: 110/69 mmHg Indications: Chest Pain, Abnormal EKG Medical History Medications: Furosemide (LASIX),,,,, Gabapentin,,,,, MeLOXICAM,,,,, D3,,,,, Imitrex,,,,, LevothROXINE,,,,, D2,,,,, Potassium,,,,, AtrovASTATIN,,,,, Aripiprazole,,,,, Vilazodone,,,,, AmiTRIPTLine,,,,, Stress Test Details Test: Lexiscan HR Resting HR: 102 bpm Max Heart Rate (APMHR): 166 bpm Max HR Achieved: 130 bpm Target HR (85% APMHR): 141 bpm % of APMHR: 78 Recovery HR: 126 bpm BP Resting BP: 110/69 mmHg Max BP: 123/66 mmHg Recovery BP: 123.0/66.0 mmHg ECG Clinical Exercise duration: 04:00 min Highest Stage Achieved: Stress ECG Conclusion Resting EKG: NSR, normal EKG Symptoms: SOA, heavy legs, Malaise, mild stomach discomfort, No CP Arrhythmias/Ectopy: None ST-T changes: No significant changes Conclusion: Unremarkable Lexiscan stress, Myoview images reported separately Test Summary REST . . . . . . . Resting REST 03:54 . . 102 . 110/ 69 . . Stage 1 . . . . . . . Myoview Injected Stage 1 01:00 . . 120 . . . . Stage 2 01:00 . . 126 . 114/ 69 . . Stage 3 01:00 . . 128 . 119/ 68 . . Stage 4 01:00 . . 126 . 115/ 66 . Stop exercise at 04:00 RECOVERY 01:00 . . 125 . 114/ 65 . . RECOVERY 02:00 . . 127 . 114/ 65 . . RECOVERY 03:00 . . 123 . 123/ 66 . . RECOVERY 03:30 . . 122 . 123/ 66 . . Electronically signed by : Scar Cruz, 11/26/2019 18:39:04
--- NOTE | 2019-11-26 07:20 | NM_ITS ---
APPROVED REPORT Exam: Nuclear Stress Test Indication: Chest pain, SOB, Abnormal EKG, High cholesterol, tobacco use Patient Location: Outpatient Stress Tech: Damaris Watt NM Tech:Renee Joshi, ARRT, RT (R)(N) Ht: 5 ft 5 in Wt: 155 lbs Bra Size: 34C HR: 100 bpm BP: 110/69 mmHg BSA: 1.77 m2 BMI: 25.7 History: Chest pain, SOB, Abnormal EKG, High cholesterol, tobacco use Procedure: Patient received a 0.4 mg of intravenous Lexiscan, resting heart rate 100 bpm, resting blood pressure 110/69 mmHg, with Lexiscan maximum heart rate achived was 121 bpm which is Less than 85 % of the maximum predicted heart rate and blood pressure was 114/69 mmHg. With Lexiscan, patient denied any complaint of chest pain. Electrocardiogram Resting electrocardiogram showed sinus rhythm, Lexiscan there is less than 1.[address] segment depression noted from the baseline EKG. The EKG portion of the Lexiscan Myoview is nondiagnostic. Cardiac Stress and Resting SPECT Images: Cardiac Stress and Resting SPECT images were obtained using technetium 99m Myoview 30.1 mCi stress and 10.44 mCi at rest. Gated SPECT for analysis of segmental wall motion and calculation of the ejection fraction also done. Cardiac stress and resting SPECT images show uniform myocardial activity without segmental perfusion abnormality, computer derived ejection fraction is over 65% with no regional wall motion abnormality, right ventricle is normal size and contractility. Conclusion: 1. The EKG portion of the Lexiscan Myoview is nondiagnostic. 2. No scintigraphic evidence of reversible ischemia seen, computer derived ejection fraction is over 65% with no regional wall motion abnormality, right ventricle is normal size and contractility. 3. Normal Lexiscan Myoview study. Electronically signed by : Scar Cruz, 11/26/2019 18:41:26
--- NOTE | 2019-11-26 07:44 | CA_ITS ---
APPROVED REPORT EXAM: Comprehensive 2D, Doppler, and color-flow Echocardiogram Platform Engineer: Sabiha Jean RDCS Ht: 5 ft 5 in Wt: 155lbs BSA: 1.77 BP: 141/70 mmHg Indications: CP, ABN EKG,COPD,SMOKER,BREAST IMPLANTS 2D Dimensions LVOT 1.75 cm (M/F) 1.5-2.5 M-Mode Dimensions RVDd 2.44 cm (0.9-2.6) LVDd 3.63 cm (3.5-5.7) LVDs 2.85 cm (3.5-5.7) IVSd 0.76 cm (0.6-1.1) PWd 0.76 cm (0.6-1.1) EF (Teich) 44.30% FS 21.50% EDV (Teich) 55.50 mL ESV (Teich) 30.90 mL LV Diastology E/A Ratio 0.43 Mitral Valve MV A Velocity 81.00 (40-130 cm/s) Left Ventricle Left atrium is mildly enlarged, left ventricle is normal size, mild concentric left ventricular hypertrophy, visually estimated ejection fraction 55% with no regional wall motion abnormality, endocardial surfaces are poorly visualized. Grade 1 diastolic dysfunction seen without tissue Doppler evidence of raise left atrial pressure. Right Ventricle Right atrium and right ventricular normal size and contractility. Aortic Valve Aortic valve is minimally thickened and fibrosed, there is no aortic stenosis or aortic insufficiency. Mitral Valve Mitral valve leaflets are minimally thickened, there is no mitral stenosis, there is mild mitral regurgitation. Tricuspid Valve Tricuspid valve is grossly normal, there is mild tricuspid regurgitation, tricuspid regurgitation jet velocity is inadequate for calculation of the right ventricular systolic pressure. Pulmonic Valve Pulmonic valve is poorly visualized. Great Vessels Aortic root is normal size. Pericardium No significant pericardial effusion noted. Conclusion 1. Mildly enlarged left atrium, normal left ventricular size, mild concentric left ventricular hypertrophy, visually estimated ejection fraction 55% with no regional wall motion abnormality, grade 1 diastolic dysfunction seen without tissue Doppler evidence of raise left atrial pressure. 2. Mild mitral and tricuspid regurgitation. 3. No significant pericardial effusion noted. Electronically signed by : Scar Cruz, 11/26/2019 18:17:35
--- NOTE | 2019-11-26 09:26 | HMH.ITSHM ---
Current Home Medications as stated by this patient Nely Rubin or sales representative meats. []POTASSIUM HYDROCODONE GABAPENTIN FUROSEMIDE VILAZODONE SUMATRIPTIN MELOXICAM LEVOTHYROXINE VITAMIN D2 VITAMIN D3 ATORVASTATIN ARIPIPRAZOLE
== END ==
PROVIDERS: PCP Emergency Medicine; Visit Provider Physician Assistant
DX: R07.9 Chest pain, unspecified (principal); R06.00 Dyspnea, unspecified; R94.31 Abnormal electrocardiogram [ECG] [EKG]; R00.0 Tachycardia, unspecified; F17.200 Nicotine dependence, unspecified, uncomplicated
CPT/HCPCS: 78452; 93017; 93306; A9502; J2785

== ENCOUNTER → 2019-12-09 15:03 | Outpatient (CLI) | payer MEDICAID, SELFPAY ==
--- NOTE | 2019-12-09 15:06 | XR_ITS ---
PROCEDURE: XR FOOT WT BEARING LT 3V CLINICAL INDICATION: fracture follow up COMPARISON: CR XR FOOT LT MIN 3V from 11/18/2019 FINDINGS: Mildly displaced fractures involve the distal aspect of the 2nd 3rd 4th and 5th metatarsals with developing callus formation. The fracture fragments are mildly displaced laterally as before. IMPRESSION: Healing 2nd 3rd 4th and 5th metatarsal fractures Dictated by: Gómez Soto MD 12/09/2019 17:11 Gómez Soto MD in [place] 12/09/2019 17:11
== END ==
PROVIDERS: PCP Emergency Medicine; Visit Provider Podiatrist
DX: T14.8XXA Other injury of unspecified body region, initial encounter (principal); S92.302D Fracture of unspecified metatarsal bone(s), left foot, subsequent encounter for fracture with routine healing
CPT/HCPCS: 73630

== ENCOUNTER → 2019-12-13 14:03 | Outpatient (CLI) | payer MEDICAID, SELFPAY ==
--- NOTE | 2019-12-13 14:06 | XR_ITS ---
PROCEDURE: XR CHEST 2V CLINICAL HISTORY: sob Smoker, shortness of breath COMPARISON: CR XR CHEST PORTABLE from 11/10/2019 CR XR CHEST 2V from 11/18/2019 FINDINGS: The cardiomediastinal silhouette and pulmonary vascularity are within normal limits. COPD. Prominent interstitium. Mild left lower lobe atelectasis . There is an old left clavicular fracture. Bone plate is present along the lower cervical spine IMPRESSION: COPD with mild prominence of the interstitium with mild left lower lobe atelectasis Dictated by: Gómez Soto MD 12/13/2019 15:46 Gómez Soto MD in [place] 12/13/2019 15:46
== END ==
PROVIDERS: PCP Emergency Medicine; Visit Provider Nurse Practitioner Family
DX: J44.9 Chronic obstructive pulmonary disease, unspecified (principal)
CPT/HCPCS: 71046

== ENCOUNTER 2019-12-23 17:42 | Inpatient (IN) | payer MEDICAID, SELFPAY ==
[2019-12-23] VITALS (9 sets, daily range): BP systolic 99–134; BP diastolic 57–83; PULSE 105–117; RESP 16–20; TEMP 36.8–37.1; O2SAT 79–97; BMI 25.7; BMI 24.6
--- NOTE | 2019-12-23 18:05 | XR_ITS ---
PROCEDURE: XR CHEST PORTABLE CLINICAL HISTORY: cough COMPARISON: CR XR CHEST PORTABLE from 11/10/2019 CR XR CHEST 2V from 11/18/2019 CR XR CHEST 2V from 12/13/2019 FINDINGS: The cardiomediastinal silhouette and pulmonary vascularity are within normal limits. There are atelectatic changes in both lower lobes. Upper lobes are clear. Breast implants noted No acute bony abnormalities. IMPRESSION: Bibasilar atelectasis Dictated by: Gómez Soto MD 12/24/2019 06:03 Gómez Soto MD in [place] 12/24/2019 06:03
--- NOTE | 2019-12-23 18:17 | PC.NURSE ---
RT at bedside for ABG
[2019-12-23 18:22] LABS: Basophils # 0.1 K/mm3 (0-0.2); Basophils % 0.4 % (0.1-2.0); Eosinophils # 0.1 K/mm3 (0.0-0.4); Eosinophils % 0.8 % (0.1-12.0); Hematocrit 44.2 % (37.0-47.0); Hemoglobin 14.5 g/dL (12.2-16.2); Lymphocytes # 1.2 K/mm3 (0.7-4.5); Lymphocytes % 7.3 % (10-50); Mean Corpuscular HGB Conc 32.8 g/dL (31.8-35.4); Mean Corpuscular Hemoglobin 29.1 pg (27.0-31.2); Mean Corpuscular Volume 88.9 fl (81-99); Mean Platelet Volume 7.9 fl (7.4-10.4); Monocytes # 1.3 K/mm3 (0.1-1.0); Monocytes % 7.9 % (1.7-9.3); Neutrophils # 13.9 K/mm3 (1.8-7.8); Neutrophils % 83.6 % (37.0-80.0); Platelet Count 270 K/mm3 (142-424); Red Blood Count 4.98 M/mm3 (4.20-5.40); Red Cell Distribution Width 14.4 % (11.5-17.5); White Blood Count 16.6 K/mm3 (4.8-10.8)
[2019-12-23 18:26] LABS: Microscopic, Urine URINE MICROSCOPIC (MICROSCOPIC)
[2019-12-23 18:26] LABS: Chloride 96 mmol/L (98-107); Sodium 136 mmol/L (136-145)
[2019-12-23 18:27] LABS: Potassium 3.6 mmoL/L (3.5-5.1)
[2019-12-23 18:28] LABS: MANUAL DIFFERENTIAL MANUAL DIFFERENTIAL (MANUAL DIFF)
[2019-12-23 18:29] LABS: Alanine Aminotransferase 34 U/L (12-78); Albumin Level 3.8 g/dl (3.5-5.0); Albumin/Globulin Ratio 1.2 (1.1-1.8); Alkaline Phosphatase 93 U/L (38-126); Anion Gap 11.6 mEq/L (5-15); Aspartate Amino Transferase 31 U/L (14-36); Bilirubin,Total 0.8 mg/dl (0.2-1.3); Blood Urea Nitrogen 11 mg/dl (7-17); Calcium 9.8 mg/dl (8.4-10.2); Carbon Dioxide 32 mmol/L (22.0-30.0); Creatinine Clearance Estimated 89 mL/min (50-200); Estimated Glomerular Filt Rate 75 ml/min (>60); GFR (African American) 90 ML/MIN (>60); Globulin 3.3 g/dL (1.3-3.2); Glucose 160 mg/dl (74-100); Total Protein,Serum 7.1 g/dl (6.3-8.2)
[2019-12-23 18:30] LABS: ABG Base Excess 4.4 mmol/L (-2.4-2.3); ABG HCO3 28.1 mmhg (22.0-26.0); ABG Oxygen Saturation 93 % (90-100); ABG PCO2 39.6 mmhg (35.0-45.0); ABG PH 7.47 mmol/L (7.35-7.45); ABG PO2 61.1 mmhg (80-100); ABG TCO2 29.3 mmhg (23-27)
[2019-12-23 18:31] LABS: Appearance,Urine CLEAR (Clear); Bilirubin,Urine Negative (Negative); Blood, Urine TRACE-I (Negative); Color,Urine YELLOW (Yellow); Glucose,Urine (UA) Negative (Negative); Ketones,Urine Negative (Negative); Leukocyte Esterase,Urine Negative (Negative); Nitrate,Urine Negative (Negative); PH,Urine 6.5 (5.0-8.5); Protein,Urine Negative (Negative)
--- NOTE | 2019-12-23 18:31 | PC.NURSE ---
Critical lab values called to Yessy Solares, kiln loader.
[2019-12-23 18:32] LABS: Lactic Acid 4.8 mmol/L (0.7-2.1)
[2019-12-23 18:34] LABS: Lymphocytes % 3 % (10-50); Monocytes % 3 % (2-9); Neutrophils % 94 % (42-76); Platelet Estimate Normal; RBC Morphology Normal; Total Cells Counted 100
--- NOTE | 2019-12-23 18:35 | PC.NURSE ---
spoke with Han in pharmacy for Vancomycin dosing. stated to do a loading dosage of Vancomycin 1.5 grams and then do Vancomycin 1 gram Q12H information relayed to ER MD.
--- NOTE | 2019-12-23 18:38 | HMH.EDGENADL ---
ED Disposition Clinical Impression: COPD (chronic obstructive pulmonary disease) Qualifiers: COPD type: COPD with acute exacerbation Qualified Code(s): J44.1 - Chronic obstructive pulmonary disease with (acute) exacerbation Respiratory failure with hypoxia Qualifiers: Chronicity: acute on chronic Qualified Code(s): J96.21 - Acute and chronic respiratory failure with hypoxia Community acquired pneumonia Qualifiers: Laterality: right Lung location: lower lobe of lung Qualified Code(s): J18.9 - Pneumonia, unspecified organism Sepsis Qualifiers: Sepsis type: sepsis due to unspecified organism Sepsis acute organ dysfunction status: with acute organ dysfunction Severe sepsis acute organ dysfunction type: acute respiratory failure Acute respiratory failure type: with hypoxia Severe sepsis shock status: without septic shock Qualified Code(s): A41.9 - Sepsis, unspecified organism; R65.20 - Severe sepsis without septic shock; J96.01 - Acute respiratory failure with hypoxia Disposition: Admitted As Inpatient Condition on Discharge: Serious Referrals: Chauncey Sam MD [Primary Care Provider] - - Critical Care Critical Care Time: Yes Attestation: On 12/23/19, the high probability of a clinically significant, sudden or life threatening deterioration of the following system(s) required my full and direct attention, intervention and personal management. The time I documented below is in addition to time spent performing reported procedures but includes the following listed in this critical care notation. 30 minutes Total Critical Care Time: 30 Vital system(s) involved:: Circulatory Failure, Central Nervous System, Metabolic Failure, Respiratory Failure My critical care processes included: Assessment & monitoring of V/S, Initial and Re-exams, Data Review/Interpretation, Coordinating Care, Medication Orders and management Medical Decision Making - Medical Records Medical records reviewed: Yes: I reviewed the patient's medical records. - Cirilo Inquiry Pt receiving controlled substance: No Vital Signs: 12/23/19 17:44 12/23/19 18:43 Temperature 98.2 F Temperature Source Oral Pulse Rate [Right] 117 H 109 H Respiratory Rate 17 Blood Pressure [Right Arm] 119/73 134/81 Blood Pressure Mean [Right Arm] 88 98 Blood Pressure Source [Right Arm] Automatic Cuff Blood Pressure Position [Right Arm] Sitting 02 Sat by Pulse Oximetry 79 L 96 Oxygen Delivery Method Room Air Nasal Cannula Oxygen Flow Rate (LPM) 4 - Lab Data Lab Results 12/23/19 16:56: Urine Opiates Screen Positive H, Urine Methadone Screen Negative, Ur Barbituates Screen Negative, Ur Phencyclidine Scrn Negative, Ur Amphetamines Screen Negative, U Benzodiazepines Scrn Negative, Urine Cocaine Screen Negative, U Marijuana (THC) Screen Negative 12/23/19 17:56: Urine Color Yellow, Urine Appearance Clear, Urine pH 6.5, Ur Specific [place] 1.010, Urine Protein Negative, Urine Glucose (UA) Negative, Urine Ketones Negative, Urine Blood Trace-i, Urine Nitrate Negative, Urine Bilirubin Negative, Urine Urobilinogen 1.0, Ur Leukocyte Esterase Negative, Urine WBC 5-10, Ur Squamous Epith Cells 20-50, Urine Bacteria 2+ 12/23/19 18:09: WBC 16.6 H, RBC 4.98, Hgb 14.5, Hct 44.2, MCV 88.9, MCH 29.1, MCHC 32.8, RDW 14.4, Plt Count 270, MPV 7.9, Neut % (Auto) 83.6 H, Lymph % (Auto) 7.3 L, [place] % (Auto) 7.9, Eos % (Auto) 0.8, Baso % (Auto) 0.4, Neut # (Auto) 13.9 H, Lymph # (Auto) 1.2, [place] # (Auto) 1.3 H, Eos # (Auto) 0.1, Baso # (Auto) 0.1, Total Counted 100, Neutrophils % (Manual) 94 H, Lymphocytes % (Manual) 3 L, Monocytes % (Manual) 3, Platelet Estimate Normal, RBC Morphology Normal 12/23/19 18:09: PT 11.3, INR 1.02, APTT 25.4 12/23/19 18:09: Sodium 136, Potassium 3.6, Chloride 96 L, Carbon Dioxide 32 H, Anion Gap 11.6, BUN 11, Creatinine 0.80, Estimated Creat Clear 89, Estimated GFR 75, Est GFR ( Amer) 90, Glucose 160 H, Calcium 9.8, Total Bilirubin 0.8, AST 31, ALT 34, Alkaline Phosphata
[2019-12-23 18:39] LABS: NT Pro Brain Natriuretic Pep. 4930 pg/mL (0-125)
[2019-12-23 18:42] LABS: Troponin I 0.04 ng/ml (0.00-0.034)
[2019-12-23 18:44] LABS: Activated Partial Thrombo Time 25.4 seconds (23.6-34.0); INR 1.02 (0.9-1.1); Prothrombin Time 11.3 seconds (9.4-11.8)
[2019-12-23 18:44] LABS: Amphetamine/Metha Screen,Urine Negative ng/ml (<1000); Benzodiazepines Screen,Urine Negative ng/ml (<200)
[2019-12-23 18:45] LABS: Barbiturates Screen,Urine Negative ng/ml (<200); Methadone Screen,Urine Negative ng/ml (<300)
[2019-12-23 18:46] LABS: Cannabinoid Screen,Urine Negative ng/ml (<50)
[2019-12-23 18:47] LABS: Cocaine Screen,Urine Negative ng/ml (<300); Opiate Screen,Urine Positive ng/ml (<300)
[2019-12-23 18:48] LABS: Phencyclidine Screen,Urine Negative ng/ml (<25)
[2019-12-23 18:48] LABS: Coronavirus 19 IgG Antibody Negative (Negative); Coronavirus 19 IgM Antibody Negative (Negative)
--- NOTE | 2019-12-23 18:54 | ECG_ITS ---
APPROVED REPORT Exam: Resting ECG HR:110 bpm ECG Measurements Heart Rate 110 AXES AL 166 P 60 QRSd 84 QRS 34 QT 354 T 38 QTc 479 Conclusion Sinus tachycardia Otherwise normal ECG Electronically signed by : Leo Nieto, 12/27/2019 13:59:14
[2019-12-23 18:58] LABS: Bacteria,Urine 2+ /lpf; Squamous Epithelial Cell,Urine 20-50 #/hpf (0-5)
--- NOTE | 2019-12-23 19:06 | PC.NURSE ---
Pt to be admitted. Spoke to Poly Madrid RN who is Brand Planner at this time. Pt will get bed assignment once COVID-19 swab is resulted. Relayed this message to Danay Koch RN dispatcher automobile rental charge nurse.
--- NOTE | 2019-12-23 19:16 | PC.NURSE ---
received report from day nurse
[2019-12-23 22:11] LABS: Troponin I 0.03 ng/ml (0.00-0.034)
[2019-12-23 22:16] LABS: Reflex Lactic Add Lactic Reflex
--- NOTE | 2019-12-23 23:12 | PC.NURSE ---
patient will not leave oxygen on.
[2019-12-23 23:16] LABS: Lactic Acid Follow Up (RFLX 1) 1.4 mmol/L (0.7-2.1)
--- NOTE | 2019-12-23 23:20 | PC.NURSE ---
PT ARRIVED TO THE FLOOR VIA W/C WITH STAFF FROM ED AT [id number]
[2019-12-24] VITALS (7 sets, daily range): BP systolic 108–113; BP diastolic 50–73; PULSE 89–110; RESP 18–20; TEMP 36.1–37.6; O2SAT 90–95; BMI 24.6
--- NOTE | 2019-12-24 00:27 | PC.NURSE ---
lab @ bedside pt refused blood work at this time
--- NOTE | 2019-12-24 01:22 | PC.NURSE ---
PT refusing to wear heart monitor
--- NOTE | 2019-12-24 03:34 | PC.NURSE ---
Pt able to state name,birthday,place. Wheezes scattered throughout lungs. Pt on 2L NC 02 sats 95%. Pt denies SOA or pain.Pt has refused lab draws and to wear heart monitor.Pt became very agitated with staff threatening to leave, market research consultant called and received new order. On reassessment of PRN med pt resting quietly in bed. bed alarm activated. daughter @ bedside. will continue to monitor
--- NOTE | 2019-12-24 07:34 | HMH.PHAVTE ---
[facility] Pharmacy VTE Monitoring - Patient Demographics Admission date: 12/24/19 Report Date: 12/24/19 Time: 07:34 Allergies/Adverse Reactions: Patient Allergies Penicillins Allergy (Intermediate, Verified 12/23/19 23:44) Hives diphenhydramine Allergy (Unknown, Verified 12/23/19 23:44) Unknown allergy reaction oxycodone Allergy (Unknown, Verified 12/23/19 23:44) Hives Height: 1.65 m Weight: 67.132 kg Patient Problems: Current Active Problems (Last Updated 01/02/18 @ 09:13 by LOVELY Watts) Respiratory failure with hypoxia (Acute) COPD (chronic obstructive pulmonary disease) (Acute) Community acquired pneumonia (Acute) Sepsis (Acute) - VTE Risk Labs: VTE Related Lab Results Hgb 14.5 g/dL (12.2-16.2) 12/23/19 18:09 Hct 44.2 % (37.0-47.0) 12/23/19 18:09 Plt Count 270 K/mm3 (142-424) 12/23/19 18:09 PT 11.3 seconds (9.4-11.8) 12/23/19 18:09 INR 1.02 (0.9-1.1) 12/23/19 18:09 APTT 25.4 seconds (23.6-34.0) 12/23/19 18:09 BUN 11 mg/dl (7-17) 12/23/19 18:09 Creatinine 0.80 mg/dl (0.52-1.04) 12/23/19 18:09 Estimated Creat Clear 89 mL/min (50-200) 12/23/19 18:09 Was VTE Risk Assessment Performed: Yes VTE Score: 3 VTE Risk Level: Low Risk Clinical Trial Participant: No - Prophylaxis VTE Prophylaxis Ordered?: Yes Types of VTE Prophylaxis: TEDS Knee High
--- NOTE | 2019-12-24 07:40 | HMH.PHAINT ---
HOME MEDICATION RECONCILIATION COMPLETED USING LIST FROM HOME PHARMACY
--- NOTE | 2019-12-24 08:12 | HMH.HP ---
*Admission Date: 12/24/19 *Chief complaint: SOA *History of present illness: 54-year-old female patient presented to the emergency department with shortness of breath, dyspnea, and confusion. Patient is confused, significant other reports patient was in [facility] became short of breath and confused and was taken by squad to the emergency department there. Patient was in hospital for approximately 1 day, and signed out AGAINST MEDICAL ADVICE because she was ready to go home. Upon her arrival home she was not using her home O2 and patient was hypoxic upon arrival in emergency department at [facility] significant other denies fever/chills/body aches or N/V/D. Patient denied abdominal pain or changes in vision. There was a Concern for sepsis in ED, Code sepsis protocols were initiated. Patient given 30 cc/kg bolus. Emergency department white blood cell count 16.6, H/H stable, SARS-COV-2 IgG negative, SARS-COV-2 IgM negative, Patient did receive cefepime and fluids in the ER, oxygenation increased with supplemental oxygen 12/24/19 CXR: FINDINGS: The cardiomediastinal silhouette and pulmonary vascularity are within normal limits. There are atelectatic changes in both lower lobes. Upper lobes are clear. Breast implants noted No acute bony abnormalities. IMPRESSION: Bibasilar atelectasis Dictated by: Charles, Female patient lying in bed pleasantly confused, oxygen at 2 L per nasal cannula, home O2 was also 2 L. Patient reports she is feeling better requesting to go home, she was informed the qc manager will be by to see her today and requested she stay at least until seen by pulmonology. She agrees to this, significant other in the room and denies questions regarding patient's current condition. She has been observed coughing after eating or drinking, will make n.p.o. for now and order swallow eval [facility] History Medical History: Reports:: Chronic Obstructive Pulmonary Disease (COPD), Depression, Home Oxygen, Migraine Denies:: Cancer, Diabetes Mellitus Type 1, Diabetes Mellitus Type 2, MRSA *Have you ever received a pneumonia vaccine?: Yes *Have you received a flu vaccine this season?: Yes Other Medical History: Reports: Arthritis, Thyroid Disease, Other Other Surgeries: Yes: Tubal Ligation, Other Amputation: No Fractures: Yes - *Social History Last grade of school completed: High school graduate Smoking Status: Current every day smoker Tobacco Type: cigarettes # Packs/Day (cigarettes): 1 Alcohol Intake: never Alcohol Intake Frequency:: other Substance Use Type: denies use *Occupational Status:: unemployed Housing: house Household Members: significant other *Travel in the last 8 weeks: None - Psychiatric History Pschychiatric History:: Reports:: Depression Family Hx:: Cancer, Heart Attack, Hyperlipidemia Review of Systems - Review of Systems Review of systems:: pertinent systems reviewed and negative unless documented below - Constitutional Reports fatigue, Reports lack of energy, Denies chills, Denies fever(s) - Eyes Denies loss of vision - ENT Reports difficulty swallowing, Denies dizziness - *Cardiovascular Denies chest pain - *Respiratory Reports cough, Reports shortness of breath - *Gastrointestinal Denies abdominal pain, Denies loose stools - *Genitourinary Denies urinary incontinence, Denies urinary urgency - *Musculoskeletal Denies joint pain, Denies body aches - *Neurologic Reports confusion, Reports weakness - Psychiatric Reports confusion - Endocrine Denies rapid, pounding, or irregular heartbeat, Denies increased urination - Hematologic/Lymphatic Denies easy bleeding, Denies easy bruising Meds Home Medications Medication Instructions Recorded Confirmed Type hydrocodone 10 mg-acetaminophen 1 tab PO HSP PRN 06/15/18 12/23/19 History 325 mg tablet gabapentin 800 mg tablet 800 mg PO TID 09/07/18 12/23/19 History ARIPiprazole [Aripiprazole 2mg
--- NOTE | 2019-12-24 08:12 | HMH.PHACONS ---
- Pharmacy Consult Date: 12/24/19 Time: 08:13 Referring provider: DR. BHATTI Reason for Consult:: VANCOMYCIN DOSING Allergies and ADEs:: Allergies Allergy/AdvReac Type Severity Reaction Status Date / Time Penicillins Allergy Intermediate Hives Verified 12/23/19 23:44 diphenhydramine Allergy Unknown Unknown Verified 12/23/19 23:44 allergy reaction oxycodone Allergy Unknown Hives Verified 12/23/19 23:44 Home Medications:: Home Medications Medication Instructions Recorded Confirmed Type hydrocodone 10 mg-acetaminophen 1 tab PO HSP PRN 06/15/18 12/23/19 History 325 mg tablet gabapentin 800 mg tablet 800 mg PO TID 09/07/18 12/23/19 History ARIPiprazole [Aripiprazole 2mg 2 mg PO DAILY 11/10/19 12/23/19 History Tablet] Amitriptyline HCl [Elavil 10mg 20 mg PO HS 11/10/19 12/23/19 History tablet] Atorvastatin Calcium [Lipitor 10mg 10 mg PO DAILY 11/10/19 12/23/19 History Tab] Cholecalciferol (Vitamin D3) 1,000 unit PO DAILY 11/10/19 12/23/19 History [Vitamin D3 1,000 Unit Cap] Ergocalciferol (Vitamin D2) 50,000 unit PO WEEKLY 11/10/19 12/23/19 History [Drisdol] Levothyroxine Sodium [Synthroid 75 mcg PO DAILY 11/10/19 12/24/19 History 75mcg (0.075mg) tablet] Meloxicam 15 mg PO DAILY 11/10/19 12/23/19 History Vilazodone HCl [Viibryd] 20 mg PO DAILY 11/10/19 12/23/19 History SUMAtriptan succinate [Imitrex] 100 mg PO DAILYP PRN 11/11/19 12/23/19 History albuterol sulfate 90 mcg/actuation 1 inh INHALATION QID PRN #6.7 g NS 12/17/19 12/23/19 Rx aerosol inhaler Furosemide [Furosemide 40MG tAB*] 40 mg PO DAILY 12/23/19 12/23/19 History Potassium Chloride [Klor-con 20 20 meq PO DAILY 12/24/19 12/24/19 History mEq tablet] Tizanidine HCl [Zanaflex 4mg 4 mg PO QID 12/24/19 12/24/19 History tab] Height: 1.65 m Weight: 67.132 kg Laboratory Results:: Laboratory Results - last 24 hr 12/23/19 16:56: Urine Opiates Screen Positive H, Urine Methadone Screen Negative, Ur Barbituates Screen Negative, Ur Phencyclidine Scrn Negative, Ur Amphetamines Screen Negative, U Benzodiazepines Scrn Negative, Urine Cocaine Screen Negative, U Marijuana (THC) Screen Negative 12/23/19 17:56: Urine Color Yellow, Urine Appearance Clear, Urine pH 6.5, Ur Specific [place] 1.010, Urine Protein Negative, Urine Glucose (UA) Negative, Urine Ketones Negative, Urine Blood Trace-i, Urine Nitrate Negative, Urine Bilirubin Negative, Urine Urobilinogen 1.0, Ur Leukocyte Esterase Negative, Urine WBC 5-10, Ur Squamous Epith Cells 20-50, Urine Bacteria 2+ 12/23/19 18:09: WBC 16.6 H, RBC 4.98, Hgb 14.5, Hct 44.2, MCV 88.9, MCH 29.1, MCHC 32.8, RDW 14.4, Plt Count 270, MPV 7.9, Neut % (Auto) 83.6 H, Lymph % (Auto) 7.3 L, [place] % (Auto) 7.9, Eos % (Auto) 0.8, Baso % (Auto) 0.4, Neut # (Auto) 13.9 H, Lymph # (Auto) 1.2, [place] # (Auto) 1.3 H, Eos # (Auto) 0.1, Baso # (Auto) 0.1, Total Counted 100, Neutrophils % (Manual) 94 H, Lymphocytes % (Manual) 3 L, Monocytes % (Manual) 3, Platelet Estimate Normal, RBC Morphology Normal 12/23/19 18:09: PT 11.3, INR 1.02, APTT 25.4 12/23/19 18:09: Sodium 136, Potassium 3.6, Chloride 96 L, Carbon Dioxide 32 H, Anion Gap 11.6, BUN 11, Creatinine 0.80, Estimated Creat Clear 89, Estimated GFR 75, Est GFR ( Amer) 90, Glucose 160 H, Calcium 9.8, Total Bilirubin 0.8, AST 31, ALT 34, Alkaline Phosphatase 93, Troponin I 0.04 H, NT-Pro-B Natriuret Pep 4930 H, Total Protein 7.1, Albumin 3.8, Globulin 3.3 H, Albumin/Globulin Ratio 1.2 12/23/19 18:09: Lactate 4.8 H 12/23/19 18:09: SARS-CoV-2 IgG Ab (Rapid) Negative, SARS-CoV-2 IgM Ab (Rapid) Negative 12/23/19 18:25: ABG pH 7.47 H, ABG pCO2 39.6, ABG pO2 61.1 L, ABG HCO3 28.1 H, ABG Total CO2 29.3 H, ABG O2 Saturation 93, ABG Base Excess 4.4 H 12/23/19 21:46: Troponin I 0.03 12/23/19 23:00: Lactate 1.4 Medical History: Reports:: Chronic Obstructive Pulmonary Disease (COPD), Depression, Home Oxygen, Migraine Denies:: Cancer, Diabetes Mellitus Type 1, Diabet
[2019-12-24 09:36] LABS: D-Dimer 0.73 ug/mL (0.15-8.0)
--- OUTSIDE RECORDS SUMMARY | 2019-12-24 11:17 | XMS_ITS | Continuity of Care Document ---
:1965 Author Organization [facility] Address [address] [place] [address] Phone Care Team Providers Name Role Phone Alan Sam Primary Care Provider Alan Sam Attending Provider Esteban Payne Attending Provider Nikolay Attending Provider Nancy Attending Provider Holly Attending Provider Unavailable Mg Attending Provider Allergies, Adverse Reactions, Alerts Allergen Type Severity Reaction Last Verified Status Updated Penicillins Allergy Moderate Hives December Yes Active 2019 11:44pm diphenhydramine Allergy Unknown Unknown December Yes Acti ve allergy 2019 reaction 11:44pm
--- NOTE | 2019-12-24 14:24 | HMH.PULMCON ---
*Admission Date: 12/24/19 *Reason for consult:: Respiratory failure *History of present illness: Ms. Rubin is a 54-year-old female current smoker more than [id number] smoking history long-term oxygen therapy at 2 L was brought to the emergency department with complaints of shortness of breath and altered mentation. On further questioning the family states that her major primary problem is worsening mentation that prompted them to bring her to the ED. Mentation gradually getting worse for the last 7 days. Along with this the family member and the patient also complains of worsening cough with productive yellowish phlegm associated with worsening shortness of breath for the last 1 week. Also stated that patient recently received a course of Z-Gilbert for her presumed pneumonia. Patient was admitted to the ED and stayed in the ED for edema discharge home on levofloxacin on October. Is unclear whether patient is using any inhalers or nebulizer treatments at home. [facility] History Medical History: Reports:: Chronic Obstructive Pulmonary Disease (COPD), Depression, Home Oxygen, Migraine Denies:: Cancer, Diabetes Mellitus Type 1, Diabetes Mellitus Type 2, MRSA *Have you ever received a pneumonia vaccine?: Yes *Have you received a flu vaccine this season?: Yes Other Medical History: Reports: Arthritis, Thyroid Disease, Other Other Surgeries: Yes: Tubal Ligation, Other Amputation: No Fractures: Yes - *Social History Last grade of school completed: High school graduate Smoking Status: Current every day smoker Tobacco Type: cigarettes # Packs/Day (cigarettes): 1 Alcohol Intake: never Alcohol Intake Frequency:: other Substance Use Type: denies use *Occupational Status:: disabled Housing: house Household Members: none *Travel in the last 8 weeks: None - Psychiatric History Pschychiatric History:: Reports:: Depression Family Hx:: Cancer, Heart Attack, Hyperlipidemia [facility] Pulmonology ROS - Review of Systems Review of systems:: unable to obtain Patient altered, unable to obtain review of systems - *Neurologic Reports confusion, Reports weakness, Denies dizziness, Denies loss of vision Meds Home Medications Medication Instructions Recorded Confirmed Type hydrocodone 10 mg-acetaminophen 1 tab PO HSP PRN 06/15/18 12/23/19 History 325 mg tablet gabapentin 800 mg tablet 800 mg PO TID 09/07/18 12/23/19 History ARIPiprazole [Aripiprazole 2mg 2 mg PO DAILY 11/10/19 12/23/19 History Tablet] Amitriptyline HCl [Elavil 10mg 20 mg PO HS 11/10/19 12/23/19 History tablet] Atorvastatin Calcium [Lipitor 10mg 10 mg PO DAILY 11/10/19 12/23/19 History Tab] Cholecalciferol (Vitamin D3) 1,000 unit PO DAILY 11/10/19 12/23/19 History [Vitamin D3 1,000 Unit Cap] Ergocalciferol (Vitamin D2) 50,000 unit PO WEEKLY 11/10/19 12/23/19 History [Drisdol] Levothyroxine Sodium [Synthroid 75 mcg PO DAILY 11/10/19 12/24/19 History 75mcg (0.075mg) tablet] Meloxicam 15 mg PO DAILY 11/10/19 12/23/19 History Vilazodone HCl [Viibryd] 20 mg PO DAILY 11/10/19 12/23/19 History SUMAtriptan succinate [Imitrex] 100 mg PO DAILYP PRN 11/11/19 12/23/19 History albuterol sulfate 90 mcg/actuation 1 inh INHALATION QID PRN #6.7 g NS 12/17/19 12/23/19 Rx aerosol inhaler Furosemide [Furosemide 40MG tAB*] 40 mg PO DAILY 12/23/19 12/23/19 History Potassium Chloride [Klor-con 20 20 meq PO DAILY 12/24/19 12/24/19 History mEq tablet] Tizanidine HCl [Zanaflex 4mg 4 mg PO QID 12/24/19 12/24/19 History tab] Allergies Allergy/AdvReac Type Severity Reaction Status Date / Time Penicillins Allergy Intermediate Hives Verified 12/23/19 23:44 diphenhydramine Allergy Unknown Unknown Verified 12/23/19 23:44 allergy reaction oxycodone Allergy Unknown Hives Verified 12/23/19 23:44 Exam Vital signs and Labs for Last 24 Hours: Temp Pulse Resp BP Pulse Ox 97.9 F 101 H 18 109/60 L 95 12/24/19 11:34 12/24/19 11:34 12/24/19
--- NOTE | 2019-12-24 14:28 | PC.NURSE ---
RT administered Sodium Chloride tx to try to induce a sputum sample. Pt pulled off mask before tx was completely finished. Encouraged pt to cough at this time and she stated that she couldnt.
[2019-12-24 15:23] LABS: Adenovirus,PCR Not Detected (NotDetected); Bordetella Pertussis Not Detected (NotDetected); Chlamydophila Pneumoniae, PCR Not Detected (NotDetected); Coronavirus 229E Not Detected (NotDetected); Coronavirus NL63 Not Detected (NotDetected); Coronavirus OC43 Not Detected (NotDetected); Coronovirus HKU1,PCR Not Detected (NotDetected); Human Metapneumovirus Not Detected (NotDetected); Influenza A, PCR Not Detected (NotDetected); Influenza AH1, 2009 Not Detected (NotDetected); Influenza AH1, PCR Not Detected (NotDetected); Influenza AH3,PCR Not Detected (NotDetected); Influenza B, PCR Not Detected (NotDetected); Mycoplasma Pneumoniae, PCR Not Detected (NotDetected); Parainfluenza 1, PCR Not Detected (NotDetected); Parainfluenza 2, PCR Not Detected (NotDetected); Parainfluenza 3, PCR Not Detected (NotDetected); Parainfluenza 4, PCR Not Detected (NotDetected); Respiratory Syncytial Virus Not Detected (NotDetected); Rhinovirus/Enterovirus Not Detected (NotDetected)
--- NOTE | 2019-12-24 15:50 | PC.NURSE ---
PT IS CONFUSED AND ONLY ORIENTED TO SELF. PT HAS CLIMBED OUT OF BED SEVERAL TIMES, BED ALARM AND CLIP ALARM IN PLACE. EDUCATION PROVIDED TO PT AND FAMILY ON RISKS OF FALLS AND FALL PREVENTION EDUCATION, PT UNABLE TO COMPREHEND AT THIS TIME. PT HAS PULLED OUT ONE IV AND HAS ATTEMPTED TO PULL OUT NEW IV NUMEROUS TIMES. STAFF WITNESSED PT PUTTING HAND IN STOOL AND LICKING FINGERS AFTERWARDS. VERBAL REDIRECTION PROVIDED AND BEDSIDE BATH PROVIDED. LUNGS CTA. RT ATTEMTED TO INDUCE SPUTUM, UNABLE TO COLLECT SAMPLE AT THIS TIME. O2 SAT MID 90'S ON 2LNC. PT FREQUENTLY TAKES O2 OFF AND STAFF REAPPLIES NC. ABDOMEN IS SOFT, ROUND, AND NON-TENDER WITH HYPERACTIVE BS IN ALL QUADS. PT'S DIET IS NPO AT THIS TIME ORDERED BY DUANE GONSALEZ AND SPEECH THERAPY INSTRUCTED TO KEEP NPO UNTIL REASSESSMENT TOMORROW. ORAL CARE PROVIDED Q2. VSS. NO DISTRESS NOTED, WILL CONTINUE TO MONITOR
--- NOTE | 2019-12-24 16:03 | HMH.SLDYSPHA ---
Speech & Language Evaluation Speech/Language Dysphagia Evaluation Start: 12/24/19 15:20 Freq: ONCE Status: Active Protocol: Document 12/24/19 15:20 DORIS (Rec: 12/24/19 16:02 DORIS [id number]) Dysphagia Assess/Goals/Plan Assessment Date of Evaluation: 12/24/19 Evaluation Type Initial Certification Assessment/Problems Dysphagia Does Patient Qualify for Service Yes Qualify/Failure Comment Patient will need a MBS to determine least restrictive diet when she is more cognitively alert. Plan Pt/Guardian verbally ack understanding No: RN notified of dx/prognosis/goals G -code Required No General Information General Current Food Consistancy NPO Dentition Upper & Lower Dentures Oxygen Status Nasal Cannula Facial Symmetry Symmetrical Patient Orientation Person Ability to Follow Directions Poor Communication Ability No Impairment Dysphagia:Food Presentation Evaluation Food Type Mechanical Soft,Liquid,Pudding Dysphagia Evaluation Summary Ms. Rubin was not alert but was oriented to herself. Family reports this is not her baseline. She was moaning and attempting to lick her fingers. She was given trials of water via straw only. She was unable to hold the cup or drink from open cup. She did well with a small bite of pudding consistency. She refused to try a mechanical soft consistency. Spoke with her about the importance of her eating this to determine least restrictive diet. She did take one small bite. At this time, it is safe for her to have full liquid diet. She will continue to be monitored for possible diet upgrade. It is recommended she have a MBS before she leaves to rule out silent aspiration. At this time, she is not cognitively alert enough to participate in study. Stroke Dysphagia Assessment PHYSICIAN CERTIFICATION: I certify the specified ther
[2019-12-25] VITALS: BP 112/62; PULSE 73; RESP 18; TEMP 36.7; O2SAT 96
[2019-12-25 04:00] VITALS: BP 124/80; PULSE 93; RESP 16; TEMP 37.3; O2SAT 95
--- NOTE | 2019-12-25 04:43 | PC.NURSE ---
Pt alert to self. wheezes throughout lungs. O2 @ 2L with sats in mid 90s. Pt unable to swallow 2100 meds. All four bed rails up per family's request. bed alarm activated. pt has rested in intervals throughout shift. family @ bedside
[2019-12-25 06:00] VITALS: BMI 25.0
[2019-12-25 08:00] VITALS: BP 115/75; PULSE 103; RESP 19; TEMP 36.8; O2SAT 92
[2019-12-25 08:40] VITALS: PULSE 103; O2SAT 92
[2019-12-25 08:41] LABS: Basophils % 0.1 % (0.1-2.0); Eosinophils # 0.1 K/mm3 (0.0-0.4); Eosinophils % 0.5 % (0.1-12.0); Hematocrit 42.6 % (37.0-47.0); Hemoglobin 13.3 g/dL (12.2-16.2); Lymphocytes % 20.3 % (10-50); Mean Corpuscular HGB Conc 31.2 g/dL (31.8-35.4); Mean Corpuscular Hemoglobin 27.4 pg (27.0-31.2); Mean Corpuscular Volume 87.9 fl (81-99); Mean Platelet Volume 7.3 fl (7.4-10.4); Monocytes # 0.5 K/mm3 (0.1-1.0); Monocytes % 5.1 % (1.7-9.3); Neutrophils # 7.1 K/mm3 (1.8-7.8); Neutrophils % 73.9 % (37.0-80.0); Platelet Count 267 K/mm3 (142-424); Red Blood Count 4.84 M/mm3 (4.20-5.40); Red Cell Distribution Width 14.7 % (11.5-17.5); White Blood Count 9.6 K/mm3 (4.8-10.8)
[2019-12-25 08:51] LABS: Chloride 104 mmol/L (98-107); Sodium 139 mmol/L (136-145)
[2019-12-25 08:53] LABS: Potassium 2.8 mmoL/L (3.5-5.1)
--- NOTE | 2019-12-25 08:53 | PC.NURSE ---
Lab called with critical potassium of 2.8. Dr Sam notified.
[2019-12-25 08:54] LABS: Blood Urea Nitrogen 13 mg/dl (7-17); Creatinine Clearance Estimated 99 mL/min (50-200); Estimated Glomerular Filt Rate 87 ml/min (>60); GFR (African American) 106 ML/MIN (>60)
[2019-12-25 08:55] LABS: Anion Gap 6.8 mEq/L (5-15); Carbon Dioxide 31 mmol/L (22.0-30.0); Glucose 102 mg/dl (74-100)
--- NOTE | 2019-12-25 08:57 | HMH.DCSUM ---
General - General Admission date:: 12/23/19 Discharge date: 12/25/19 HPI HPI: 54-year-old female patient presented to the emergency department with shortness of breath, dyspnea, and confusion. Patient is confused, significant other reports patient was in [facility] became short of breath and confused and was taken by squad to the emergency department there. Patient was in hospital for approximately 1 day, and signed out AGAINST MEDICAL ADVICE because she was ready to go home. Upon her arrival home she was not using her home O2 and patient was hypoxic upon arrival in emergency department at [facility] significant other denies fever/chills/body aches or N/V/D. Patient denied abdominal pain or changes in vision. There was a Concern for sepsis in ED, Code sepsis protocols were initiated. Patient given 30 cc/kg bolus. Emergency department white blood cell count 16.6, H/H stable, SARS-COV-2 IgG negative, SARS-COV-2 IgM negative, Patient did receive cefepime and fluids in the ER, oxygenation increased with supplemental oxygen 12/24/19 CXR: FINDINGS: The cardiomediastinal silhouette and pulmonary vascularity are within normal limits. There are atelectatic changes in both lower lobes. Upper lobes are clear. Breast implants noted No acute bony abnormalities. IMPRESSION: Bibasilar atelectasis Dictated by: Charles Female patient lying in bed pleasantly confused, oxygen at 2 L per nasal cannula, home O2 was also 2 L. Patient reports she is feeling better requesting to go home, she was informed the patient consumer marketer will be by to see her today and requested she stay at least until seen by pulmonology. She agrees to this, significant other in the room and denies questions regarding patient's current condition. She has been observed coughing after eating or drinking, will make n.p.o. for now and order swallow [facility] Hospital Course Hospital Course: year-old female patient presented to the emergency department with shortness of breath, dyspnea, and confusion. Patient is confused, significant other reports patient was in [facility] became short of breath and confused and was taken by squad to the emergency department there. Patient was in hospital for approximately 1 day, and signed out AGAINST MEDICAL ADVICE because she was ready to go home. Upon her arrival home she was not using her home O2 and patient was hypoxic upon arrival in emergency department at [facility] significant other denies fever/chills/body aches or N/V/D. Patient denied abdominal pain or changes in vision. There was a Concern for sepsis in ED, Code sepsis protocols were initiated. Patient given 30 cc/kg bolus. Emergency department white blood cell count 16.6, H/H stable, SARS-COV-2 IgG negative, SARS-COV-2 IgM negative, Patient did receive cefepime and fluids in the ER, oxygenation increased with supplemental oxygen 12/24/19 CXR: FINDINGS: The cardiomediastinal silhouette and pulmonary vascularity are within normal limits. There are atelectatic changes in both lower lobes. Upper lobes are clear. Breast implants noted No acute bony abnormalities. IMPRESSION: Bibasilar atelectasis Dictated by: Charles, She has received doses of ceftriaxone and azithromycin in hospital this will be continued upon discharge. She also was started on Advair inhaler this will be continued upon discharge, she did report less dyspnea and shortness of air when she started on this inhaler. She was very confused upon admission and the following day, she has been observed coughing after eating or drinking, she was n.p.o. she now is alert and oriented x3 and completely aware of her surroundings and we will have speech see this morning before discharge. She reports she is tolerating fluids all night Awaiting blood cultures, urine has no growth at 24 hours, was unable to obtain sputum sample Female patient lying in bed with significa
--- NOTE | 2019-12-25 09:55 | HMH.OTEV ---
OT Inpatient Evaluation Rehab OT IP Evaluation Start: 12/24/19 15:19 Freq: ONCE Status: Complete Protocol: Document 12/25/19 09:48 ELMEROSMAR (Rec: 12/25/19 09:55 JESSICA [id number]) Rehab OT IP Assessment Subjective History 54 year old female who was admitted to [facility] on 12/24/19 for SOB, dysphea, and confusion. Patient was currently in ED at [place], [place] and left AMA 2* wanting to return home. Patient hx of not using 02 and was hypoxic at ED at [facility]. Patient currently on 2L of 02 at home. History: COPD, Depression, CAP and Sepsis. Patient lives with and has three children who live close by. Patient ambulates with RW at home. Patient independent with ADLs and functional mobility tasks. Subjective I'm going home today. Objective Patient Orientation Person,Place,Time,Name,Age, Birthday,Day of Month,Day of Week,Month,Year,Time of Day, Patient Baseline,Situation Upper Extremity Gross ROM WNL Transfer Training Sit/Stand Transfer,Sit/Stand/ Step Transfer Assist Level Independent Chair Transfer Ability Independent Chair Transfer Technique Sit to/from Ambulatory Chair Transfer Assistive Devices Rolling Walker Feeding Ability Independent Lower Body Dressing Ability Independent Upper Body Dressing Ability Independent Performing Toilet Hygiene Ability Standby Assistance Overall Commode/Toilet Transfer Ability Standby Assistance Commode/Toilet Transfer Technique Sit to/from Ambulatory Commode/Toilet Transfer Assistive Raised Toilet Seat Devices decrease in endurance No Rehab OT IP prob,goals,plan Problems Date of Evaluation: 12/25/19 OT IP Problems Safety Rehab Potential Rehab Potential Innapropriate for Skilled Therapy Equipment Needs Assistive Devices Rolling / Wheeled Walker Discharge Plan OT Discharge Plan Patient independent with functional mobility task with RW. Patient reports leaving [facility] this a.m. to return home with . Educated Patient re
--- NOTE | 2019-12-25 10:05 | HMH.PULMPN ---
Internal Medicine - PN: Subj *Date: 12/25/19 *Time: 10:05 Interval history: No acute respiratory events overnight Exam Vital signs and Labs for Last 24 Hours: Temp Pulse Resp BP Pulse Ox 99.2 F 93 H 16 124/80 95 12/25/19 04:00 12/25/19 04:00 12/25/19 04:00 12/25/19 04:00 12/25/19 04:00 Laboratory Results - last 24 hr 12/24/19 15:17: Chlamy pneumoniae PCR Not detected, Adenovirus (PCR) Not detected, B. pertussis DNA (PCR) Not detected, Coronavirus OC43 (PCR) Not detected, Coronavirus HKU1 (PCR) Not detected, Coronavirus 229E (PCR) Not detected, Coronavirus NL63 (PCR) Not detected, Human Metapneumovir PCR Not detected, Influenza A (H1) PCR Not detected, Influ A (H1N1/09) PCR Not detected, Influenza A (H3) PCR Not detected, Influenza Type A (PCR) Not detected, Influenza Type B (PCR) Not detected, M. pneumoniae (PCR) Not detected, Parainfluenza 1 (PCR) Not detected, Parainfluenza 2 (PCR) Not detected, Parainfluenza 3 (PCR) Not detected, Parainfluenza 4 (PCR) Not detected, RSV (PCR) Not detected, Entero/Rhino (PCR) Not detected 12/25/19 08:20: WBC 9.6 D, RBC 4.84, Hgb 13.3, Hct 42.6, MCV 87.9, MCH 27.4, MCHC 31.2 L, RDW 14.7, Plt Count 267, MPV 7.3 L, Neut % (Auto) 73.9, Lymph % (Auto) 20.3, [place] % (Auto) 5.1, Eos % (Auto) 0.5, Baso % (Auto) 0.1, Neut # (Auto) 7.1, Lymph # (Auto) 2.0, [place] # (Auto) 0.5, Eos # (Auto) 0.1, Baso # (Auto) 0.0 12/25/19 08:20: Sodium 139, Potassium 2.8 L* D, Chloride 104, Carbon Dioxide 31 H, Anion Gap 6.8, BUN 13, Creatinine 0.70, Estimated Creat Clear 99, Estimated GFR 87, Est GFR ( Amer) 106, Glucose 102 H, Calcium 9.0 I & O for Last 24 hours: Intake & Output 12/22/19 12/23/19 12/24/19 12/25/19 23:59 23:59 23:59 23:59 Intake Total 800 / 800 0 / 0 Output Total / Balance 799 / 799 0 / 0 Weight 148 lb 148 lb 150 lb 0.006 oz Microbiology Reports for the Last 24 Hours: Microbiology 12/23/19 17:56 Urine,Clean Catch Urine Culture - Preliminary NO GROWTH AFTER 24 HOURS - *Routine HEENT Exam Head: Present: normocephalic, atraumatic - *Routine Neck Exam Present: supple. Absent: lymphadenopathy, thyromegaly - *Routine Respiratory Exam Present: CTA bilaterally. Absent: accessory muscle use, patient mechanically ventilated - *Routine Cardiovascular Exam Present: Normal S1, Normal S2 - *Routine Abdominal Exam Present: soft. Absent: tenderness, distended - *Routine Extremities Exam Absent: cyanosis, clubbing, edema - *Routine Neurological Exam Present: alert. Absent: oriented X3 Oriented only to person Assessment and Plan (1) Respiratory failure with hypoxia Status: Acute Qualifiers: Chronicity: acute on chronic Qualified Code(s): J96.21 - Acute and chronic respiratory failure with hypoxia Category: Medical Code(s): J96.91 - Respiratory failure, unspecified with hypoxia (2) Pneumonia Status: Acute Category: Medical Code(s): J18.9 - Pneumonia, unspecified organism (3) COPD (chronic obstructive pulmonary disease) Status: Acute Qualifiers: COPD type: COPD with acute exacerbation Qualified Code(s): J44.1 - Chronic obstructive pulmonary disease with (acute) exacerbation Category: Medical Code(s): J44.9 - Chronic obstructive pulmonary disease, unspecified (4) Sepsis Status: Acute Qualifiers: Sepsis type: sepsis due to unspecified organism Sepsis acute organ dysfunction status: with acute organ dysfunction Severe sepsis acute organ dysfunction type: acute respiratory failure Acute respiratory failure type: with hypoxia Severe sepsis shock status: without septic shock Qualified Code(s): A41.9 - Sepsis, unspecified organism; R65.20 - Severe sepsis without septic shock; J96.01 - Acute respiratory failure with hypoxia Category: Medical Code(s): A41.9 - Sepsis, unspecified organism (5) Community acquired pneumonia Status: Acute Qualifiers: Laterality: rig
--- NOTE | 2019-12-25 10:33 | HMH.PTEV ---
Physical Therapy Evaluation Rehab PT IP Evaluation Start: 12/24/19 15:18 Freq: ONCE Status: Active Protocol: Document 12/25/19 09:35 CHILO (Rec: 12/25/19 10:32 PWCLARICE [id number]) Subjective/History History History This is the initial physical therapy evaluation for Nely Rubin, a 54 y/o female reporting to the ER for shortness of breath, dypsnea and confusion. Upon arival to ED pt. was not using home O2 and was hypoxic. Pt. has a history of COPD and smoking also per the H&P Note by Brett Hernandez, SPT Subjective Subjective Pt. reports that she is willing to work with PT and didn't have any complaints while in the room. Rehab PT IP Eval Objective Appearance Patient Behavior Appropriate,Cooperative Patient Orientation Person,Place,Time,Year Difficulty following instructions none Speech Pattern Clear,Appropriate Ambulation Patient Able to Ambulate Yes Ambulation Observation IP General Gait Pattern Observation No Deviations/Normal Ambulation Distance (feet) 75 Ambulation Assistive Device Rolling Walker Ambulation Ability Supervision/Stand by Balance Ability to Arise Able, uses arms to help Sitting Balance Steady, safe Standing Balance Steady, wide stance Dynamic Sitting Balance Ability Normal Dynamic Standing Balance Ability Good Transfers Bed Transfer Ability Independent Chair Transfer Ability Independent Sit to Stand Bed Transfer Ability Independent Sit to Stand Chair Transfer Ability Independent ROM All Extremities PT ROM Status WFL Rehab PT IP prob,goals,plan Problems Date of Evaluation: 12/25/19 PT IP Problems Self care,Safety Rehab Potential Rehab Potential Innapropriate for Skilled Therapy Equipment Needs Assistive Devices Rolling / Wheeled Walker Plan Other Intervention Plan Pt. not appropriate for skilled PT at this time - pt close to baseline Discharge Goals Bed Transfer Ability Independent Sit to Stand Chair Transfer Ability Independent Ambulation Assistive Device Rolling Walker Ambulation Distance (feet) 75 Discharge Plan PT Discharge Plan Pt was close to baseline and was to be d
--- NOTE | 2019-12-25 11:30 | PC.NURSE ---
A&OX4. PT HAS TOLERATED ROOM WELL THROUHGHOUT SHIFT. RESPIRATIONS REGULAR AND UNLABORED. EXPIRATORY WHEEZES SCATTERED THROUGHOUT LUNGS. HAND CENTRIFUGAL WAX MOLDER EQUAL. +2 PULSES NOTED THROUGHOUT. SOFT AND NONTENDER ABDOMEN. ACTIVE BOWEL SOUNDS HEARD IN ALL 4 QUADRANTS. NO BM THUS FAR. GIRLFRIEND AT BEDSIDE. PT IS BEING DISCHARGED. DISCUSSED DISCHARGE PLAN WITH PT AND GIRLFRIEND. VERBALIZED UNDERSTANDING. PHARMACY EDUCATED PT ON MEDICATIONS. IV WAS REMOVED WITH CATHETER INTACT. KOBAN AND 4X4S. APPLIED. BED ALARM ON TO [employer]. PER SENIOR JAVA DEVELOPER RN, PT WAS VERY CONFUSED ON HER, BUT SHE IS ABLE TO TELL ME HER NAME, BIRTHDAY, PLACE, AND YEAR. PT IS RESTING IN BED AT THIS TIME. CALL LIGHT WITHIN REACH. BED IN LOWEST POSITION. VSS. WILL CONTINUE TO MONITOR.
== END 2019-12-25 11:40 | disposition home or self-care (01) | DRG 189 ==
LOC: ER 19:07 → 2ND 22:59
PROVIDERS: Internal Medicine Pulmonary Disease; Admitting Provider Family Medicine; Emergency Provider Emergency Medicine; PCP Emergency Medicine; Visit Provider Emergency Medicine
DX: J18.9 Pneumonia, unspecified organism (principal); J96.21 Acute and chronic respiratory failure with hypoxia; J44.9 Chronic obstructive pulmonary disease, unspecified; Z99.81 Dependence on supplemental oxygen; Z72.0 Tobacco use; E03.9 Hypothyroidism, unspecified; Z79.899 Other long term (current) drug therapy
CPT/HCPCS: 36415; 71045; 80048; 80053; 80305; 81001; 82803; 83605; 83880; 84484; 85007; 85025; 85378; 85610; 85730; 86328; 87040; 87086; 87486; 87581; 87633; 87798; 92526; 92610; 93005; 94640; 96365; 96366; 97161; 97165; 99285; J1956; J3370; U0003

== ENCOUNTER → 2019-12-30 14:57 | Outpatient (CLI) | payer MEDICAID, SELFPAY ==
--- NOTE | 2019-12-30 15:00 | XR_ITS ---
PROCEDURE: XR FOOT WT BEARING LT 3V CLINICAL INDICATION: fracture follow up Follow-up fracture COMPARISON: CR XR FOOT LT MIN 3V from 11/18/2019 CR XR FOOT WT BEARING LT 3V from 12/09/2019 FINDINGS: Healing fractures are present involving the distal aspect of the 2nd 3rd 4th and 5th metatarsals at the diaphyseal metaphyseal junction with mild lateral angulation of the distal fracture fragment. There is developing callus formation at the fracture sites. There is minimal lateral displacement of the distal fracture fragments as before. IMPRESSION: Healing 2nd 3rd 4th and 5th metatarsal fractures Dictated by: Gómez Soto MD 12/30/2019 17:15 Gómez Soto MD in [place] 12/30/2019 17:15
== END ==
PROVIDERS: PCP Emergency Medicine; Visit Provider Podiatrist
DX: S92.902A Unspecified fracture of left foot, initial encounter for closed fracture (principal); T14.8XXA Other injury of unspecified body region, initial encounter
CPT/HCPCS: 73630

== ENCOUNTER → 2020-01-15 10:52 | Outpatient (CLI) | payer MEDICAID, SELFPAY ==
--- NOTE | 2020-01-15 11:05 | MM_ITS ---
PROCEDURE: MM DIG SC MAMM IMPLANT BI CAD Digital Breast Tomosynthesis Included CLINICAL INDICATION: screening There is no personal or family history of breast cancer. The patient has bilateral breast implants. COMPARISON: MG MG SCREENING MAMMOGRAM from 05/02/2014 MG MG SCREENING WIL MAMMOGRAM from 03/03/2017 from [facility] TECHNIQUE: Standard CC and MLO images and 3D Tomosynthesis was obtained. R2 CAD reviewed. Additional Denise views were obtained as well. FINDINGS: Mild to moderate fibroglandular densities are seen in the central portions of the [place] breast tissue bilaterally. There is faint arterial calcification bilaterally. Both breast implants appear intact with no evidence of leakage and there is no crinkling of the outline of the breast implants. There is no suspicious lesion in either breast and no suspicious microcalcifications. IMPRESSION: Fibrofatty parenchyma with intact appearing breast implants and no suspicious lesions seen BI-RAD Category: 2 Benign Finding(s) FOLLOW-UP: 1YR 1 Year Follow-up (A letter has been sent to the patient regarding results of the study.) Dictated by: Dr. Huber Muse MD 01/28/2020 13:48 Dr. Huber Muse MD in [place] 01/28/2020 13:48
[2020-01-15 15:06] LABS: Hemoglobin A1C 5.6 % (4.0-6.0)
== END ==
PROVIDERS: PCP Emergency Medicine; Visit Provider Emergency Medicine
DX: R73.9 Hyperglycemia, unspecified (principal); Z12.31 Encounter for screening mammogram for malignant neoplasm of breast
CPT/HCPCS: 36415; 77063; 77067; 83036

== ENCOUNTER → 2020-02-17 09:34 | Outpatient (CLI) | payer MEDICAID, SELFPAY ==
--- NOTE | 2020-02-17 09:38 | XR_ITS ---
PROCEDURE: XR FOOT WT BEARING LT 3V CLINICAL INDICATION: fracture follow up Follow-up fracture COMPARISON: CR XR FOOT LT MIN 3V from 11/18/2019 CR XR FOOT WT BEARING LT 3V from 12/09/2019 CR XR FOOT WT BEARING LT 3V from 12/30/2019 FINDINGS: There are healing fractures of the distal aspect of the 2nd through 5th metatarsals. There is developing callus formation with minimal lateral angulation of the distal fracture fragments. The joint spaces are well-preserved. No significant degenerative/arthritic changes. No erosive changes evident. Other findings:None. IMPRESSION: Healing 2nd through 5th metacarpal fractures Dictated by: Gómez Soto MD 02/17/2020 10:21 Gómez Soto MD in [place] 02/17/2020 10:21
== END ==
PROVIDERS: PCP Emergency Medicine; Visit Provider Nurse Practitioner
DX: S92.902D Unspecified fracture of left foot, subsequent encounter for fracture with routine healing (principal); T14.8XXA Other injury of unspecified body region, initial encounter
CPT/HCPCS: 73630

== ENCOUNTER → 2020-08-18 13:40 | Outpatient (CLI) | payer MEDICAID, SELFPAY ==
[2020-08-18 13:53] LABS: Basophils # 0.1 K/mm3 (0-0.2); Basophils % 0.7 % (0.1-2.0); Eosinophils # 0.1 K/mm3 (0.0-0.4); Hematocrit 44.4 % (37.0-47.0); Hemoglobin 14.7 g/dL (12.2-16.2); Lymphocytes # 2.5 K/mm3 (0.7-4.5); Mean Corpuscular HGB Conc 33.1 g/dL (31.8-35.4); Mean Corpuscular Hemoglobin 29.9 pg (27.0-31.2); Mean Corpuscular Volume 90.4 fl (81-99); Mean Platelet Volume 8.9 fl (7.4-10.4); Monocytes # 0.6 K/mm3 (0.1-1.0); Monocytes % 4.8 % (1.7-9.3); Neutrophils # 8.3 K/mm3 (1.8-7.8); Neutrophils % 71.5 % (37.0-80.0); Platelet Count 304 K/mm3 (142-424); Red Blood Count 4.91 M/mm3 (4.20-5.40); Red Cell Distribution Width 13.5 % (11.5-17.5); White Blood Count 11.6 K/mm3 (4.8-10.8)
[2020-08-18 13:55] LABS: Alanine Aminotransferase 15 U/L (12-78); Albumin/Globulin Ratio 1.3 (1.1-1.8); Alkaline Phosphatase 109 U/L (38-126); Anion Gap 10.7 mEq/L (5-15); Aspartate Amino Transferase 23 U/L (14-36); Bilirubin,Total 0.8 mg/dl (0.2-1.3); Blood Urea Nitrogen 4 mg/dl (7-17); Calcium 9.3 mg/dl (8.4-10.2); Carbon Dioxide 28 mmol/L (22.0-30.0); Chloride 105 mmol/L (98-107); Chol/HDL Ratio 3.7 (1-3.5); Cholesterol 193 mg/dl (140-200); Estimated Glomerular Filt Rate 65 ml/min (>60); GFR (African American) 79 ML/MIN (>60); Glucose 105 mg/dl (74-100); HDL Cholesterol 52 mg/dl (40-60); Potassium 4.7 mmoL/L (3.5-5.1); Sodium 139 mmol/L (136-145); Triglycerides 214 mg/dl (30-150); VLDL Cholesterol 43 mg/dL (0-40)
[2020-08-18 14:12] LABS: 25-OH Vitamin D, Total 44.2 ng/mL (30-100); T4 (Thyroxine) 14.6 ug/dl (5.53-11.0)
[2020-08-18 14:26] LABS: Thyroid Stimulating Hormone 3.37 uIU/mL (0.465-4.68)
[2020-08-18 17:08] LABS: Amphetamine/Metha Screen,Urine Negative ng/ml (<1000)
[2020-08-18 17:09] LABS: Barbiturates Screen,Urine Negative ng/ml (<200)
[2020-08-18 17:10] LABS: Benzodiazepines Screen,Urine Negative ng/ml (<200)
[2020-08-18 17:12] LABS: Cocaine Screen,Urine Negative ng/ml (<300)
[2020-08-18 17:13] LABS: Methadone Screen,Urine Negative ng/ml (<300)
[2020-08-18 17:15] LABS: Opiate Screen,Urine Positive ng/ml (<300)
[2020-08-18 17:16] LABS: Phencyclidine Screen,Urine Negative ng/ml (<25)
[2020-08-18 18:33] LABS: Cannabinoid Screen,Urine Negative ng/ml (<50)
[2020-08-19 00:24] LABS: Hemoglobin A1C 5.3 % (4.0-6.0)
== END ==
PROVIDERS: Visit Provider Emergency Medicine
DX: J44.9 Chronic obstructive pulmonary disease, unspecified (principal); E78.5 Hyperlipidemia, unspecified; R73.03 Prediabetes; E55.9 Vitamin D deficiency, unspecified; M54.9 Dorsalgia, unspecified; Z79.899 Other long term (current) drug therapy
CPT/HCPCS: 80053; 80061; 80305; 82306; 83036; 84436; 84443; 85025

== ENCOUNTER 2021-02-22 09:42 | Emergency (ER) | payer MEDICAID, SELFPAY ==
[2021-02-22] VITALS (11 sets, daily range): BP systolic 96–123; BP diastolic 52–78; PULSE 78–107; RESP 22–26; TEMP 36.6–38.1; O2SAT 84–99; BMI 29.9
[2021-02-22 10:48] LABS: Influenza A, PCR Not Detected (NotDetected); Influenza B, PCR Not Detected (NotDetected)
--- NOTE | 2021-02-22 10:48 | HMH.EDUTC ---
[facility] [place] Condition on Discharge: Good <José Manuel Meyers - Last Filed: 02/22/21 13:37> Time of Disposition: 10:55 <Tsering Garcia - Last Filed: 02/22/21 18:54> Clinical Impression: COVID-19 Disposition: Home, Self-Care Additional Instructions: Follow up with your PCP in 1-3 days, return to ED with new, worsening, or concerning symptoms. Continue all home medications as previously directed, continue wearing 2 liters NC oxygen at home. Ok to take tylenol and motrin for temperatures > 100.4, drink plenty of fluids to stay adequately hydrated. Use your albuterol inhaler for shortness of air and wheezing. Prescriptions: predniSONE [Prednisone 20mg Tab] 40 mg PO DAILY 5 Days #10 tab Transmission Status: Received by [facility] #[id number] Referrals: Chauncey Sam MD [Primary Care Provider] - Medical Decision Making - Medical Records Medical records reviewed: Yes: I reviewed the patient's medical records. - Cirilo Inquiry Pt receiving controlled substance: No - Lab Data Result diagrams: 02/22/21 11:10 02/22/21 11:10 <LuigiJosé Manuel - Last Filed: 02/22/21 13:37> - Cirilo Inquiry Pt receiving controlled substance: No Cirilo was queried for this patient: No - Lab Data Result diagrams: 02/22/21 11:10 02/22/21 11:10 <Tsering Garcia - Last Filed: 02/22/21 18:54> Vital Signs: 02/22/21 10:20 02/22/21 11:00 02/22/21 11:01 Temperature 99.4 F 100.5 F H Temperature Source Oral Oral Pulse Rate 102 H Pulse Rate [Right Brachial] 106 H 107 H Respiratory Rate 26 H 22 24 Blood Pressure 118/66 Blood Pressure [Right Arm] 96/53 L 101/70 L Blood Pressure Mean [Right Arm] 67 80 Blood Pressure Source [Right Arm] Automatic Cuff Blood Pressure Position Sitting Blood Pressure Position [Right Arm] Sitting Sitting 02 Sat by Pulse Oximetry 84 L 95 92 L Oxygen Delivery Method Room Air Nasal Cannula Nasal Cannula Oxygen Flow Rate (LPM) 2 2 02/22/21 12:00 02/22/21 13:00 02/22/21 13:30 Temperature Temperature Source Pulse Rate 95 H 95 H 78 Pulse Rate [Right Brachial] Respiratory Rate 22 22 22 Blood Pressure 106/52 L 105/56 L 102/56 L Blood Pressure [Right Arm] Blood Pressure Mean [Right Arm] Blood Pressure Source [Right Arm] Blood Pressure Position Sitting Blood Pressure Position [Right Arm] 02 Sat by Pulse Oximetry 99 94 L 94 L Oxygen Delivery Method Nasal Cannula Nasal Cannula Nasal Cannula Oxygen Flow Rate (LPM) 2 2 2 02/22/21 14:15 02/22/21 14:30 02/22/21 15:00 Temperature Temperature Source Pulse Rate 86 89 89 Pulse Rate [Right Brachial] Respiratory Rate 22 22 22 Blood Pressure 104/65 L 101/68 L 100/68 L Blood Pressure [Right Arm] Blood Pressure Mean [Right Arm] Blood Pressure Source [Right Arm] Blood Pressure Position Sitting Blood Pressure Position [Right Arm] 02 Sat by Pulse Oximetry 92 L 94 L 96 Oxygen Delivery Method Nasal Cannula Nasal Cannula Nasal Cannula Oxygen Flow Rate (LPM) 2 2 2 02/22/21 15:15 02/22/21 16:33 Temperature 98 F Temperature Source Oral Pulse Rate 91 H 78 Pulse Rate [Right Brachial] Respiratory Rate 22 22 Blood Pressure 104/73 L 123/78 Blood Pressure [Right Arm] Blood Pressure Mean [Right Arm] Blood Pressure Source [Right Arm] Blood Pressure Position Sitting Sitting Blood Pressure Position [Right Arm] 02 Sat by Pulse Oximetry 96 Oxygen Delivery Method Nasal Cannula Room Air Oxygen Flow Rate (LPM) 2 - Lab Data Lab Results 02/22/21 10:30: SARS-CoV-2 (PCR) Detected A, Influenza A Untype (PCR) Not detected, Influenza Type B (PCR) Not detected 02/22/21 11:10: WBC 5.5, RBC 4.78, Hgb 14.3, Hct 43.0, MCV 89.9, MCH 29.9, MCHC 33.2, RDW 13.8, Plt Count 191, MPV 8.5, Neut % (Auto) 58.9, Lymph % (Auto) 32.8, Coryell % (Auto) 6.9, Eos % (Auto) 0.4, Baso % (Auto) 1.1, Neut # (Auto) 3.3, Lymph # (Auto) 1.8, Coryell # (Auto) 0.4, Eos # (Auto) 0.0, Baso # (Auto) 0.1 02/22/21 11:10: Sodium 135 L,
--- NOTE | 2021-02-22 10:57 | ECG_ITS ---
APPROVED REPORT Exam: Resting ECG HR:98 bpm ECG Measurements Heart Rate 98 AXES CO 166 P 56 QRSd 88 QRS 10 QT 346 T 38 QTc 441 Conclusion Normal sinus rhythm Normal ECG Electronically signed by : Leo Nieto MD 02/22/2021 21:04:26
--- NOTE | 2021-02-22 10:57 | PC.NURSE ---
PATIENT SENT TO ER PER Lori MENDEZ APRN FOR FURTHER EVALUATION. REPORT GIVEN TO Cruz ARRINGTON RN
--- NOTE | 2021-02-22 11:09 | XR_ITS ---
PROCEDURE: XR CHEST PORTABLE CLINICAL HISTORY: COUGH COMPARISON: CR XR CHEST 2V from 11/18/2019 CR XR CHEST 2V from 12/13/2019 CR XR CHEST PORTABLE from 12/23/2019 FINDINGS: The cardiomediastinal silhouette and pulmonary vascularity are within normal limits. Patchy ground-glass infiltrate is present in the right midlung. Prior anterior cervical disc fusion. IMPRESSION: Patchy ground-glass infiltrate in the right midlung Dictated by: Gómez Soto MD 02/22/2021 13:14 Gómez Soto MD in [place] 02/22/2021 13:14
[2021-02-22 11:31] LABS: Basophils # 0.1 K/mm3 (0-0.2); Basophils % 1.1 % (0.1-2.0); Chloride 93 mmol/L (98-107); Eosinophils % 0.4 % (0.1-12.0); Hemoglobin 14.3 g/dL (12.2-16.2); Lymphocytes # 1.8 K/mm3 (0.7-4.5); Lymphocytes % 32.8 % (10-50); Mean Corpuscular HGB Conc 33.2 g/dL (31.8-35.4); Mean Corpuscular Hemoglobin 29.9 pg (27.0-31.2); Mean Corpuscular Volume 89.9 fl (81-99); Mean Platelet Volume 8.5 fl (7.4-10.4); Monocytes # 0.4 K/mm3 (0.1-1.0); Monocytes % 6.9 % (1.7-9.3); Neutrophils # 3.3 K/mm3 (1.8-7.8); Neutrophils % 58.9 % (37.0-80.0); Platelet Count 191 K/mm3 (142-424); Red Blood Count 4.78 M/mm3 (4.20-5.40); Red Cell Distribution Width 13.8 % (11.5-17.5); White Blood Count 5.5 K/mm3 (4.8-10.8)
[2021-02-22 11:32] LABS: Potassium 3.9 mmoL/L (3.5-5.1); Sodium 135 mmol/L (136-145)
[2021-02-22 11:34] LABS: Alanine Aminotransferase 33 U/L (12-78); Albumin Level 3.8 g/dl (3.5-5.0); Albumin/Globulin Ratio 1.2 (1.1-1.8); Alkaline Phosphatase 72 U/L (38-126); Anion Gap 5.9 mEq/L (5-15); Aspartate Amino Transferase 60 U/L (14-36); Bilirubin,Total 0.3 mg/dl (0.2-1.3); Blood Urea Nitrogen 5 mg/dl (7-17); Carbon Dioxide 40 mmol/L (22.0-30.0); Creatinine Clearance Estimated 91 mL/min (50-200); Estimated Glomerular Filt Rate 65 ml/min (>60); GFR (African American) 79 ML/MIN (>60); Globulin 3.2 g/dL (1.3-3.2)
[2021-02-22 11:35] LABS: Calcium 8.4 mg/dl (8.4-10.2); Glucose 107 mg/dl (74-100)
[2021-02-22 11:44] LABS: NT Pro Brain Natriuretic Pep. 249 pg/mL (0-125)
[2021-02-22 11:47] LABS: Troponin I < 0.01 ng/ml (0.00-0.034)
[2021-02-22 12:01] LABS: Coronavirus 19, PCR Detected (NotDetected)
[2021-02-22 12:02] LABS: D-Dimer 1.02 ug/mL (0.0-0.5)
--- NOTE | 2021-02-22 12:08 | HMH.EDGENADL ---
ED Disposition Clinical Impression: COVID-19 Clinical Impression: (Ruled Out): Shortness of breath Disposition: Home, Self-Care Condition on Discharge: Good Additional Instructions: Follow up with your PCP in 1-3 days, return to ED with new, worsening, or concerning symptoms. Continue all home medications as previously directed, continue wearing 2 liters NC oxygen at home. Ok to take tylenol and motrin for temperatures > 100.4, drink plenty of fluids to stay adequately hydrated. Use your albuterol inhaler for shortness of air and wheezing. Referrals: Chauncey Sam MD [Primary Care Provider] - - Critical Care Critical Care Time: No Attestation: On 02/22/21, the high probability of a clinically significant, sudden or life threatening deterioration of the following system(s) required my full and direct attention, intervention and personal management. The time I documented below is in addition to time spent performing reported procedures but includes the following listed in this critical care notation. Medical Decision Making - Medical Records Medical records reviewed: Yes: I reviewed the patient's medical records. - Cirilo Inquiry Pt receiving controlled substance: No Vital Signs: 02/22/21 10:20 02/22/21 11:01 Temperature 99.4 F 100.5 F H Temperature Source Oral Oral Pulse Rate [Right Brachial] 106 H 107 H Respiratory Rate 26 H 24 Blood Pressure [Right Arm] 96/53 L 101/70 L Blood Pressure Mean [Right Arm] 67 80 Blood Pressure Source [Right Arm] Automatic Cuff Blood Pressure Position [Right Arm] Sitting Sitting 02 Sat by Pulse Oximetry 84 L 92 L Oxygen Delivery Method Room Air Nasal Cannula Oxygen Flow Rate (LPM) 2 - Lab Data Lab Results 02/22/21 10:30: SARS-CoV-2 (PCR) Detected A, Influenza A Untype (PCR) Not detected, Influenza Type B (PCR) Not detected 02/22/21 11:10: WBC 5.5, RBC 4.78, Hgb 14.3, Hct 43.0, MCV 89.9, MCH 29.9, MCHC 33.2, RDW 13.8, Plt Count 191, MPV 8.5, Neut % (Auto) 58.9, Lymph % (Auto) 32.8, Heard % (Auto) 6.9, Eos % (Auto) 0.4, Baso % (Auto) 1.1, Neut # (Auto) 3.3, Lymph # (Auto) 1.8, Heard # (Auto) 0.4, Eos # (Auto) 0.0, Baso # (Auto) 0.1 02/22/21 11:10: Sodium 135 L, Potassium 3.9, Chloride 93 L, Carbon Dioxide 40 H, Anion Gap 5.9, BUN 5 L, Creatinine 0.90, Estimated Creat Clear 91, Estimated GFR 65, Est GFR ( Amer) 79, Glucose 107 H, Calcium 8.4, Total Bilirubin 0.3, AST 60 H, ALT 33, Alkaline Phosphatase 72, Troponin I < 0.01, Total Protein 7.0, Albumin 3.8, Globulin 3.2, Albumin/Globulin Ratio 1.2 02/22/21 11:10: NT-Pro-B Natriuret Pep 249 H 02/22/21 11:10: D-Dimer 1.02 H 02/22/21 11:59: VBG pH 7.39, VBG pCO2 55.6 H, VBG pO2 41.6 H, VBG HCO3 32.8 H, VBG Total CO2 34.5 H, VBG O2 Saturation 79.1 H, VBG Base Excess 7.8 H Result diagrams: 02/22/21 11:10 02/22/21 11:10 Orders (Tests/Meds): ED MEDICATIONS Generic Name Dose Route Start Last Admin Trade Name Freq PRN Reason Stop Dose Admin Hydrocortisone Sodium Succinate 100 mg 02/22/21 13:30 Hydrocortisone Sod Succinate 100mg Vial IV 02/22/21 16:00 ONCE PRN INFUSION REACTION Sodium Chloride 1,000 mls @ 100 mls/hr 02/22/21 13:30 Sod Chlor 0.9% 1000ml Bag IV 02/22/21 16:00 .Q10H PRN INFUSION REACTION Discontinued Medications Generic Name Dose Route Start Last Admin Trade Name Freq PRN Reason Stop Dose Admin Acetaminophen 1,000 mg 02/22/21 11:10 02/22/21 11:23 Acetaminophen 500mg Tab PO 02/22/21 11:11 1,000 mg ONCE ONE Administration Lactated Ringer's 500 mls @ 999 mls/hr 02/22/21 11:30 02/22/21 11:51 Lactated Ringer's 1000 Ml Bag IV 02/22/21 12:00 999 mls/hr .Q31M ISAURA Administration Casirivimab/Imdevimab 10 ml/ 110 mls @ 220 mls/hr 02/22/21 13:30 02/22/21 13:44 Sodium Chloride IV 02/22/21 13:59 220 mls/hr ONCE ONE Administration Iopamidol 70 ml 02/22/21 12:41 02/22/21 12:45 Iopamidol-370 (76%);100ml Bottle IV 02/22/21 12:42 70 ml
--- NOTE | 2021-02-22 12:11 | CT_ITS ---
PROCEDURE: CT ANGIO CHEST PE PROTOCOL CLINCIAL INDICATION: SOA COMPARISON: No exams were available for comparison TECHNIQUE: IV Contrast: 70ML Isovue 370 Axial images obtained with sagittal and coronal reformats. All CT scans at the facility use one or more dose reduction, viz: automated exposure control, ma/kV adjustment per patient size (including targeted exams where dose is matched to indication, i.e. head), or iterative reconstruction technique. FINDINGS: HEART AND MEDIASTINAL STRUCTURES: No evidence of pulmonary embolus, aortic aneurysm, or aortic dissection. Mildly prominent nodes are present in the mediastinum measuring to 2.4 x 1.3 cm. Prominent right hilar node is present at 2.2 by 2.1 cm. Smaller nodes are present in the right and left hilum. LUNGS AND PLEURAL SPACES: Centrilobular emphysematous changes. There is an area of ground-glass infiltrate involving the right upper lobe inferiorly. Patchy area of ground-glass infiltrate is noted in the superior segment of right lower lobe. Atelectatic changes are also present in the lung bases. Consolidation versus atelectatic change left lower lobe. BONY STRUCTURES: No acute bony abnormalities apparent. UPPER ABDOMEN: 12 mm hypodensity right hepatic lobe anteriorly and superiorly segment 8 nonspecific. 2 cm right adrenal nodule which may represent an adenoma. Left adrenal gland is slightly enlarged. 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 ADDITIONAL FINDINGS: Patient has bilateral subpectoral implants. There is undulation of the right implant which appears somewhat smaller than the left side. MRI may provide further evaluation if clinically warranted. IMPRESSION: 1. No evidence of pulmonary embolus. 2. Mild mediastinal and hilar adenopathy. 3. Ground-glass infiltrates on the right with atelectasis or infiltrate in the left lung base and atelectasis in the right. This could be related to Covid19 pneumonia. 4. Undulated appearance of the anterior aspect of the right breast implant which appears smaller than the left side. Nonemergent MRI may provide further evaluation for possible implant rupture. Dictated by: Gómez Soto MD 02/22/2021 13:13 Gómez Soto MD in [place] 02/22/2021 13:13
[2021-02-22 12:15] LABS: VBG Base Excess 7.8 mmol/L (-2.4-2.3); VBG HCO3 32.8 mmol/L (23-30); VBG Oxygen Saturation 79.1 % (50-70); VBG PH 7.39 mmol/L (7.31-7.41); VBG PO2 41.6 mmol/L (28-40); VBG Total CO2 34.5 mmol/L (23-27)
[2021-02-22 12:17] LABS: VBG PCO2 55.6 mmol/L (35-51)
[2021-02-22 15:26] LABS: Lactic Acid 0.8 mmol/L (0.7-2.1)
[2021-02-22 15:46] LABS: Troponin I < 0.01 ng/ml (0.00-0.034)
== END 2021-02-22 16:35 | disposition home or self-care (01) ==
LOC: UTC 09:44 → ER 10:52
PROVIDERS: Nurse Practitioner; Emergency Provider Emergency Medicine; PCP Emergency Medicine
DX: U07.1 COVID-19 (principal); J44.9 Chronic obstructive pulmonary disease, unspecified; Z99.81 Dependence on supplemental oxygen; E03.9 Hypothyroidism, unspecified; G43.709 Chronic migraine without aura, not intractable, without status migrainosus; F33.1 Major depressive disorder, recurrent, moderate; I10 Essential (primary) hypertension
CPT/HCPCS: 36415; 71045; 71275; 80053; 82803; 83605; 83880; 84484; 85025; 85378; 87040; 93005; 96365; 99283; C9803; Q9967; U0003; U0005

== ENCOUNTER → 2021-06-22 16:11 | Outpatient (CLI) | payer MEDICAID, SELFPAY ==
--- NOTE | 2021-06-22 16:16 | MR_ITS ---
PROCEDURE INFORMATION: Exam: MR Lumbar Spine Without Contrast Exam date and time: 06/22/2021 4:17 PM Age: 56 years old Clinical indication: Low back pain. TECHNIQUE: Imaging protocol: Multiplanar magnetic resonance images of the lumbar spine without intravenous contrast. COMPARISON: SPLUMBWO MR lumbar spine wo con 03/06/2018 11:22 AM FINDINGS: Vertebrae: Unremarkable. Spinal cord: Normal signal. No cord compression. L1-L2: No significant disc disease. No significant spinal canal stenosis. No neural foraminal stenosis. L2-L3: There is mild retrolisthesis at this level. There is disc desiccation. There is a moderate disc bulge with a small superimposed left paracentral disc herniation. There is mild left-sided neuroforaminal narrowing. L3-L4: There is disc desiccation. There is facet arthropathy and ligamentum flavum hypertrophy. L4-L5: There is disc desiccation. There is facet arthropathy and ligamentum flavum hypertrophy. L5-S1: There is disc desiccation. There is facet arthropathy and ligamentum flavum hypertrophy. Soft tissues: Unremarkable. Kidneys and ureters: There is a retroaortic left renal vein. IMPRESSION: Mild multilevel degenerative changes as described above.
== END ==
PROVIDERS: PCP Emergency Medicine; Visit Provider Emergency Medicine
DX: M54.50 Low back pain, unspecified (principal)
CPT/HCPCS: 72148; 76376

== ENCOUNTER 2021-10-23 09:15 | Emergency (ER) | payer MEDICARE, MEDICAID, SELFPAY ==
[2021-10-23 09:25] VITALS: BP 120/78; PULSE 70; RESP 17; TEMP 37.1; O2SAT 100; BMI 29.8
--- NOTE | 2021-10-23 09:30 | XR_ITS ---
PROCEDURE INFORMATION: Exam: XR Right Shoulder Exam date and time: 10/23/2021 9:40 AM Age: 56 years old Clinical indication: Injury or trauma; Fall; Blunt trauma (contusions or hematomas); Shoulder; Right TECHNIQUE: Imaging protocol: Radiologic exam of the Right shoulder. Views: 2 or more views. COMPARISON: CR XR CHEST PORTABLE 02/22/2021 12:09 PM FINDINGS: Bones/joints: No acute fracture or malalignment. Moderate acromioclavicular and mild glenohumeral joint degenerative changes. Osteopenia. Remote right clavicle fracture. Soft tissues: Normal. IMPRESSION: No acute fracture or malalignment.
--- NOTE | 2021-10-23 09:46 | HMH.EDUTC ---
[facility] [place] Disposition Clinical Impression: Shoulder pain, right Qualifiers: Chronicity: acute Qualified Code(s): M25.511 - Pain in right shoulder Clavicle fracture Qualifiers: Encounter type: initial encounter Clavicle location: unspecified part of clavicle Fracture type: closed Fracture alignment: nondisplaced Laterality: right Qualified Code(s): S42.001A - Fracture of unspecified part of right clavicle, initial encounter for closed fracture Disposition: Home, Self-Care Condition on Discharge: Good Instructions: DI for Clavicle Fracture-Adult Additional Instructions: call ortho tomorrow for appointment tylenol or motrin as needed for pain leave splint in place Referrals: Chauncey Sam MD [Primary Care Provider] - Clayton Melara MD [Staff Physician] - Time of Disposition: 10:26 Medical Decision Making - Cirilo Inquiry Pt receiving controlled substance: No Vital Signs: 10/23/21 09:25 10/23/21 09:50 Temperature 98.7 F 98.7 F Temperature Source Oral Pulse Rate 70 Pulse Rate [Right Brachial] 70 Respiratory Rate 17 17 Blood Pressure 120/78 Blood Pressure [Right Arm] 120/78 Blood Pressure Mean [Right Arm] 92 Blood Pressure Source [Right Arm] Automatic Cuff Blood Pressure Position [Right Arm] Sitting 02 Sat by Pulse Oximetry 100 Oxygen Delivery Method Room Air [facility] [place] HPI - General Chief complaint: Urgent Treatment Center Stated complaint: rt arm shoulder pain AO 10/19/21 Time Seen by Provider: 10/23/21 09:46 Mode of Arrival: Ambulatory Source of Information: Patient Limitations: No Limitations Description of Symptoms (Recalled from Triage Doc. by RN): PATIENT C/O RIGHT ARM AND SHOULDER PAIN. SHE STATES SHE MISSED A STEP AND FELL ON MONDAY HEENT Symptoms (Recalled from RN notes): No Resp Symptoms (Recalled from RN notes): No Skin Symptoms (Recalled from RN notes): No MS Symptoms (Recalled from RN notes): Yes Functional Status (Recalled from RN notes): WNL - History of Present Illness Provider Complaint: 56 yr old female presents for rt shoulder pain. Pt states she fell on and caught herself with that shoulder as she fell. - Related Data Home Medications Medication Instructions Recorded Confirmed gabapentin 800 mg tablet 800 mg PO TID 09/07/18 06/11/21 Cholecalciferol (Vitamin D3) 1,000 unit PO DAILY 11/10/19 06/11/21 [Vitamin D3 1,000 Unit Cap] Tizanidine HCl [Zanaflex 4mg 4 mg PO QID 12/24/19 06/11/21 tab] hydrocodone 10 mg-acetaminophen 1 tab PO TID tab 12/30/19 06/11/21 325 mg tablet aripiprazole 2 mg tablet 5 mg PO DAILY tab 03/02/20 06/11/21 Previous Rx's Medication Instructions Recorded metoprolol succinate 25 mg 12.5 mg PO DAILY #30 tab 03/02/20 tablet,extended release 24 hr potassium chloride 20 mEq See Rx Instructions .ROUTE 10/20/20 tablet,extended release(part/cryst) .COMPLEX #30 tab mupirocin 2 % topical ointment 1 applic TOPICAL BID 7 Days #15 g 11/13/20 ondansetron HCl 4 mg tablet See Rx Instructions .ROUTE 02/19/21 .COMPLEX #14 tab atorvastatin 10 mg tablet See Rx Instructions .ROUTE 04/26/21 .COMPLEX #90 tab budesonide-formoterol HFA 80 2 puff INHALATION BID #10.2 g 04/26/21 mcg-4.5 mcg/actuation aerosol inhaler furosemide 40 mg tablet See Rx Instructions .ROUTE 04/26/21 .COMPLEX #30 tab ipratropium 0.5 mg-albuterol 3 mg See Rx Instructions .ROUTE 04/26/21 (2.5 mg base)/3 mL nebulization .COMPLEX #180 ml soln sumatriptan succinate 100 mg tablet See Rx Instructions .ROUTE 04/26/21 .COMPLEX #9 tab vilazodone 20 mg tablet 20 mg PO DAILY #90 tab 04/26/21 amitriptyline 10 mg tablet See Rx Instructions .ROUTE 07/26/21 .COMPLEX #120 tab meloxicam 15 mg tablet See Rx Instructions .ROUTE 08/25/21 .COMPLEX #90 tab albuterol sulfate 90 mcg/actuation See Rx Instructions .ROUTE 09/29/21 aerosol inhaler .COMPLEX #8.5 g levothyroxine 75 mcg tablet See Rx Instructions .ROUTE 10/06/21 .COMPLEX #90 tab Allergies Allergy/Adv
[2021-10-23 09:50] VITALS: BP 120/78; PULSE 70; RESP 17; TEMP 37.1; O2SAT 100
== END 2021-10-23 10:46 | disposition home or self-care (01) ==
PROVIDERS: Emergency Provider Nurse Practitioner Family; PCP Emergency Medicine
DX: S42.001A Fracture of unspecified part of right clavicle, initial encounter for closed fracture (principal); M25.511 Pain in right shoulder; W01.0XXA Fall on same level from slipping, tripping and stumbling without subsequent striking against object, initial encounter
CPT/HCPCS: 73030; 99212; G0463

== ENCOUNTER → 2021-11-24 10:28 | Outpatient (CLI) | payer MEDICARE, MEDICAID, SELFPAY ==
--- NOTE | 2021-11-24 10:29 | MR_ITS ---
FINAL REPORT CLINICAL HISTORY: right shoulder pain FALL ON September LIMITED ROM FINDINGS: Multiplanar MR imaging of the right shoulder was performed without contrast. The tendons of the rotator cuff are intact without evidence of rotator cuff tear. There is mild AC joint arthrosis. A small amount of fluid is seen in the subacromial/subdeltoid bursa. The glenoid labrum is intact. The long head of the biceps tendon is intact. No significant glenohumeral joint effusion is seen. There is a nondisplaced fracture of the greater tuberosity with surrounding bone marrow edema. The musculature is intact. There is no evidence of soft tissue mass. IMPRESSION: Nondisplaced fracture of the greater tuberosity. Reviewed, Interpreted and Dictated by Reg Cardona III, MD Transcribed by Shea Newman Authenticated and [facility]
== END ==
PROVIDERS: PCP Emergency Medicine; Visit Provider Orthopaedic Surgery
DX: M25.511 Pain in right shoulder (principal)
CPT/HCPCS: 73221

== ENCOUNTER → 2022-04-06 14:00 | Outpatient (CLI) | payer MEDICARE, MEDICAID, SELFPAY ==
[2022-04-06 19:38] LABS: Coronavirus 19, PCR Not Detected (NotDetected); Influenza A, PCR Not Detected (NotDetected); Influenza B, PCR Not Detected (NotDetected)
[2022-04-06 19:44] LABS: Basophils # 0.2 K/mm3 (0-0.2); Basophils % 1.3 % (0.1-2.0); Eosinophils # 0.1 K/mm3 (0.0-0.4); Eosinophils % 1.2 % (0.1-12.0); Hematocrit 38.2 % (37.0-47.0); Hemoglobin 12.3 g/dL (12.2-16.2); Lymphocytes # 4.4 K/mm3 (0.7-4.5); Lymphocytes % 35.3 % (10-50); Mean Corpuscular HGB Conc 32.3 g/dL (31.8-35.4); Mean Corpuscular Hemoglobin 29.3 pg (27.0-31.2); Mean Corpuscular Volume 90.6 fl (81-99); Mean Platelet Volume 9.2 fl (7.4-10.4); Monocytes # 0.6 K/mm3 (0.1-1.0); Neutrophils # 7.1 K/mm3 (1.8-7.8); Neutrophils % 57.2 % (37.0-80.0); Platelet Count 403 K/mm3 (142-424); Red Blood Count 4.22 M/mm3 (4.20-5.40); Red Cell Distribution Width 16.1 % (11.5-17.5); White Blood Count 12.3 K/mm3 (4.8-10.8)
[2022-04-06 19:51] LABS: Alanine Aminotransferase 22 U/L (12-78); Albumin Level 3.9 g/dl (3.5-5.0); Albumin/Globulin Ratio 1.3 (1.1-1.8); Alkaline Phosphatase 111 U/L (38-126); Anion Gap 12.8 mEq/L (5-15); Aspartate Amino Transferase 31 U/L (14-36); Bilirubin,Total 0.8 mg/dl (0.2-1.3); Blood Urea Nitrogen 6 mg/dl (7-17); Calcium 8.7 mg/dl (8.4-10.2); Carbon Dioxide 32 mmol/L (22.0-30.0); Chloride 96 mmol/L (98-107); Chol/HDL Ratio 4.2 (1-3.5); Cholesterol 244 mg/dl (140-200); Estimated Glomerular Filt Rate 74 ml/min (>60); GFR (African American) 90 ML/MIN (>60); Globulin 3.1 g/dL (1.3-3.2); Glucose 96 mg/dl (74-100); HDL Cholesterol 58 mg/dl (40-60); Potassium 3.8 mmoL/L (3.5-5.1); Sodium 137 mmol/L (136-145)
[2022-04-06 19:54] LABS: Triglycerides 413 mg/dl (30-150)
[2022-04-06 20:08] LABS: 25-OH Vitamin D, Total 32.4 ng/mL (30-100); Direct LDL Cholesterol 76.62 mg/dL (100-129)
[2022-04-06 20:09] LABS: Free T4 (Free Thyroxine) 0.27 ng/dl (0.78-2.19)
== END ==
PROVIDERS: PCP Emergency Medicine; Visit Provider Emergency Medicine
DX: E66.3 Overweight (principal); R40.0 Somnolence; R05.9 Cough, unspecified; E55.9 Vitamin D deficiency, unspecified; Z68.30 Body mass index [BMI] 30.0-30.9, adult
CPT/HCPCS: 80053; 80061; 82306; 84439; 84443; 85025; C9803; U0003; U0005

== ENCOUNTER → 2022-05-03 16:08 | Outpatient (CLI) | payer MEDICARE, MEDICAID, SELFPAY ==
[2022-05-03 19:37] LABS: Free T4 (Free Thyroxine) 1.61 ng/dl (0.78-2.19)
[2022-05-03 19:52] LABS: Thyroid Stimulating Hormone 2.78 uIU/mL (0.465-4.68)
== END ==
PROVIDERS: PCP Emergency Medicine; Visit Provider Emergency Medicine
DX: R40.0 Somnolence (principal); R79.89 Other specified abnormal findings of blood chemistry
CPT/HCPCS: 36415; 84439; 84443

== ENCOUNTER → 2022-05-20 10:54 | Outpatient (CLI) | payer MEDICARE, MEDICAID, SELFPAY | PROVIDERS: PCP Emergency Medicine; Visit Provider Nurse Practitioner Family | DX: E78.5 Hyperlipidemia, unspecified (principal); R00.0 Tachycardia, unspecified; R06.00 Dyspnea, unspecified; R94.31 Abnormal electrocardiogram [ECG] [EKG] | CPT/HCPCS: 93306 ==

== ENCOUNTER 2022-06-13 12:08 | Emergency (ER) | payer MEDICARE, MEDICAID, SELFPAY ==
[2022-06-13] VITALS (7 sets, daily range): BP systolic 98–121; BP diastolic 53–75; PULSE 99–126; RESP 15–18; TEMP 36.5–36.8; O2SAT 93–100; BMI 29.9
--- NOTE | 2022-06-13 12:15 | XR_ITS ---
FINAL REPORT CLINICAL HISTORY: soa COMPARISON: 02/22/2021 FINDINGS: A portable view of the chest was obtained. Comparison is made to a prior exam dated 02/22/2021. Cardiac and mediastinal silhouettes are within normal limits. The lung volumes are low. The lungs are clear. There is no pleural effusion or pneumothorax. IMPRESSION: No acute process on this portable exam. Reviewed, Interpreted and Dictated by Sugar Farah MD Transcribed by Louise Gordon Authenticated and [facility]
--- NOTE | 2022-06-13 12:24 | HMH.EDGENADL ---
Discharge Plan Disposition Patient Disposition: Home, Self-Care Prescriptions Prescriptions: New methylprednisolone [Medrol (Gilbert)] 4 mg tablets,dose pack 4 mg PO DAILY Qty: 21 0RF azithromycin 500 mg tablet 500 mg PO DAILY Qty: 3 0RF No Action metoprolol succinate 25 mg tablet extended release 24 hr 25 mg PO QDAY Qty: 90 3RF gabapentin 800 mg tablet 800 mg PO TID sumatriptan succinate 100 mg tablet See Rx Instructions .ROUTE .COMPLEX Qty: 9 3RF Dose Instruction: TAKE 1 TABLET DAILY NEEDED FOR HEADACHE Rx Instructions: TAKE 1 TABLET DAILY NEEDED FOR HEADACHE potassium chloride 20 mEq tablet,ER particles/crystals See Rx Instructions .ROUTE .COMPLEX Qty: 30 2RF Dose Instruction: TAKE ONE TABLET BY MOUTH EVERY DAY Rx Instructions: TAKE ONE TABLET BY MOUTH EVERY DAY hydrocodone-acetaminophen 10-325 mg tablet 1 tab PO Q8H PRN ipratropium-albuterol 0.5 mg-3 mg(2.5 mg base)/3 mL solution for nebulization See Rx Instructions .ROUTE .COMPLEX Qty: 180 0RF Dose Instruction: INHALE THE CONTENTS OF 1 VIAL EVERY 8 HOURS NEEDED FOR SHORTNESS OF BREATH OR WHEEZING Rx Instructions: INHALE THE CONTENTS OF 1 VIAL EVERY 8 HOURS NEEDED FOR SHORTNESS OF BREATH OR WHEEZING budesonide-formoterol [Symbicort] 80-4.5 mcg/actuation HFA aerosol inhaler See Rx Instructions .ROUTE .COMPLEX Qty: 10.2 1RF Dose Instruction: INHALE 2 PUFFS TWICE DAILY DIRECTED ..RINSE MOUTH AFTER EACH USE Rx Instructions: INHALE 2 PUFFS TWICE DAILY DIRECTED ..RINSE MOUTH AFTER EACH USE bumetanide 1 mg tablet See Rx Instructions .ROUTE .COMPLEX Qty: 30 1RF Dose Instruction: TAKE 1 TABLET BY MOUTH ONCE DAILY Rx Instructions: TAKE 1 TABLET BY MOUTH ONCE DAILY sucralfate 1 gram tablet See Rx Instructions .ROUTE .COMPLEX Qty: 60 1RF Dose Instruction: TAKE 1 TABLET BY MOUTH TWICE DAILY DIRECTED Rx Instructions: TAKE 1 TABLET BY MOUTH TWICE DAILY DIRECTED ondansetron HCl 4 mg tablet See Rx Instructions .ROUTE .COMPLEX Qty: 14 0RF Dose Instruction: TAKE 1 TABLET BY MOUTH EVERY 8 HOURS NEEDED FOR NAUSEA AND VOMITING Rx Instructions: TAKE 1 TABLET BY MOUTH EVERY 8 HOURS NEEDED FOR NAUSEA AND VOMITING albuterol sulfate [ProAir HFA] 90 mcg/actuation HFA aerosol inhaler See Rx Instructions .ROUTE .COMPLEX Qty: 8.5 0RF Dose Instruction: INHALE 1 PUFF FOUR TIMES DAILY NEEDED FOR SHORTNESS OF BREATH OR WHEEZING Rx Instructions: INHALE 1 PUFF FOUR TIMES DAILY NEEDED FOR SHORTNESS OF BREATH OR WHEEZING vilazodone [Viibryd] 20 mg tablet 20 mg PO DAILY Qty: 90 0RF atorvastatin 10 mg tablet See Rx Instructions .ROUTE .COMPLEX Qty: 90 0RF Dose Instruction: TAKE 1 TABLET BY MOUTH ONCE DAILY FOR CHOLESTEROL Rx Instructions: TAKE 1 TABLET BY MOUTH ONCE DAILY FOR CHOLESTEROL levothyroxine 88 mcg tablet 88 mcg PO DAILY Qty: 90 1RF amitriptyline 10 mg tablet See Rx Instructions .ROUTE .COMPLEX Qty: 120 0RF Dose Instruction: TAKE 4 TABLETS BY MOUTH AT BEDTIME FOR DEPRESSION Rx Instructions: TAKE 4 TABLETS BY MOUTH AT BEDTIME FOR DEPRESSION meloxicam 15 mg tablet See Rx Instructions .ROUTE .COMPLEX Qty: 90 0RF Dose Instruction: TAKE ONE TABLET BY MOUTH EVERY DAY WITH FOOD FOR PAIN Rx Instructions: TAKE ONE TABLET BY MOUTH EVERY DAY WITH FOOD FOR PAIN Referrals Follow up/Referrals: Chauncey Sam MD [Primary Care Provider] - See instructions Activity Restrictions/Add. Instructions Additional Instructions/Restrictions: Return for worsening difficulty breathing chest pain fever or any other concerns within the next 8 hours otherwise follow-up with your primary care physician within the next few days Clinical Impressions Clinical Impression: Acute exacerbation of chronic obstructive pulmonary disease Instructions Pa
--- NOTE | 2022-06-13 12:42 | PC.NURSE ---
xray at bedside.
[2022-06-13 12:52] LABS: Basophils # 0.1 K/mm3 (0-0.2); Eosinophils # 0.2 K/mm3 (0.0-0.4); Eosinophils % 1.4 % (0.1-12.0); Hematocrit 43.5 % (37.0-47.0); Hemoglobin 13.6 g/dL (12.2-16.2); Lymphocytes # 2.2 K/mm3 (0.7-4.5); Lymphocytes % 15.6 % (10-50); Mean Corpuscular HGB Conc 31.4 g/dL (31.8-35.4); Mean Corpuscular Hemoglobin 27.3 pg (27.0-31.2); Mean Corpuscular Volume 86.9 fl (81-99); Mean Platelet Volume 7.4 fl (7.4-10.4); Monocytes # 0.7 K/mm3 (0.1-1.0); Monocytes % 4.9 % (1.7-9.3); Neutrophils # 10.7 K/mm3 (1.8-7.8); Platelet Count 383 K/mm3 (142-424); Red Cell Distribution Width 15.4 % (11.5-17.5); White Blood Count 13.9 K/mm3 (4.8-10.8)
[2022-06-13 12:54] LABS: Chloride 91 mmol/L (98-107); Potassium 3.3 mmoL/L (3.5-5.1); Sodium 132 mmol/L (136-145)
[2022-06-13 12:56] LABS: Blood Urea Nitrogen 11 mg/dl (7-17); Creatinine Clearance Estimated 116 mL/min (50-200); Estimated Glomerular Filt Rate 87 ml/min (>60); GFR (African American) 105 ML/MIN (>60)
[2022-06-13 12:57] LABS: Alanine Aminotransferase 34 U/L (12-78); Albumin Level 3.9 g/dl (3.5-5.0); Albumin/Globulin Ratio 1.1 (1.1-1.8); Alkaline Phosphatase 114 U/L (38-126); Aspartate Amino Transferase 44 U/L (14-36); Bilirubin,Total 0.9 mg/dl (0.2-1.3); Carbon Dioxide 36 mmol/L (22.0-30.0); Globulin 3.6 g/dL (1.3-3.2); Glucose 138 mg/dl (74-100); Total Protein,Serum 7.5 g/dl (6.3-8.2)
[2022-06-13 13:01] LABS: Anion Gap 8.3 mEq/L (5-15)
[2022-06-13 13:08] LABS: NT Pro Brain Natriuretic Pep. 82.8 pg/mL (0-125)
[2022-06-13 13:13] LABS: Troponin I < 0.01 ng/ml (0.00-0.034)
[2022-06-13 13:13] LABS: Microscopic, Urine URINE MICROSCOPIC (MICROSCOPIC)
[2022-06-13 13:15] LABS: Appearance,Urine CLEAR (Clear); Bilirubin,Urine Negative (Negative); Blood, Urine Negative (Negative); Color,Urine YELLOW (Yellow); Glucose,Urine (UA) Negative (Negative); Ketones,Urine Negative (Negative); Leukocyte Esterase,Urine Negative (Negative); Nitrate,Urine Negative (Negative); Protein,Urine Negative (Negative); Specific Gravity, Urine <= 1.005 (1.005-1.030); Urobilinogen,Urine 0.2 EU/dl (0.2)
[2022-06-13 13:27] LABS: Bacteria,Urine Trace /lpf; WBC,Urine Occasional #/hpf (0-3)
[2022-06-13 13:29] LABS: Thyroid Stimulating Hormone 1.05 uIU/mL (0.465-4.68)
== END 2022-06-13 15:29 | disposition home or self-care (01) ==
PROVIDERS: Emergency Provider Emergency Medicine; PCP Emergency Medicine
DX: J44.1 Chronic obstructive pulmonary disease with (acute) exacerbation (principal); R11.2 Nausea with vomiting, unspecified
CPT/HCPCS: 71045; 80053; 81001; 83735; 83880; 84443; 84484; 85025; 96360; 99284; 99285

== ENCOUNTER 2022-06-17 13:03 | Observation (INO) | payer MEDICARE, MEDICAID, SELFPAY ==
[2022-06-17] VITALS (15 sets, daily range): BP systolic 106–142; BP diastolic 54–79; PULSE 90–119; RESP 12–26; TEMP 36.6–36.8; O2SAT 92–100; BMI 27.4
--- NOTE | 2022-06-17 13:19 | HMH.EDGENADL ---
Discharge Plan Disposition Patient Disposition: Admitted As Inpatient Prescriptions Prescriptions: No Action metoprolol succinate 25 mg tablet extended release 24 hr 25 mg PO QDAY Qty: 90 3RF gabapentin 800 mg tablet 800 mg PO TID sumatriptan succinate 100 mg tablet See Rx Instructions .ROUTE .COMPLEX Qty: 9 3RF Dose Instruction: TAKE 1 TABLET DAILY NEEDED FOR HEADACHE Rx Instructions: TAKE 1 TABLET DAILY NEEDED FOR HEADACHE potassium chloride 20 mEq tablet,ER particles/crystals See Rx Instructions .ROUTE .COMPLEX Qty: 30 2RF Dose Instruction: TAKE ONE TABLET BY MOUTH EVERY DAY Rx Instructions: TAKE ONE TABLET BY MOUTH EVERY DAY hydrocodone-acetaminophen 10-325 mg tablet 1 tab PO Q8H PRN ipratropium-albuterol 0.5 mg-3 mg(2.5 mg base)/3 mL solution for nebulization See Rx Instructions .ROUTE .COMPLEX Qty: 180 0RF Dose Instruction: INHALE THE CONTENTS OF 1 VIAL EVERY 8 HOURS NEEDED FOR SHORTNESS OF BREATH OR WHEEZING Rx Instructions: INHALE THE CONTENTS OF 1 VIAL EVERY 8 HOURS NEEDED FOR SHORTNESS OF BREATH OR WHEEZING budesonide-formoterol [Symbicort] 80-4.5 mcg/actuation HFA aerosol inhaler See Rx Instructions .ROUTE .COMPLEX Qty: 10.2 1RF Dose Instruction: INHALE 2 PUFFS TWICE DAILY DIRECTED ..RINSE MOUTH AFTER EACH USE Rx Instructions: INHALE 2 PUFFS TWICE DAILY DIRECTED ..RINSE MOUTH AFTER EACH USE bumetanide 1 mg tablet See Rx Instructions .ROUTE .COMPLEX Qty: 30 1RF Dose Instruction: TAKE 1 TABLET BY MOUTH ONCE DAILY Rx Instructions: TAKE 1 TABLET BY MOUTH ONCE DAILY sucralfate 1 gram tablet See Rx Instructions .ROUTE .COMPLEX Qty: 60 1RF Dose Instruction: TAKE 1 TABLET BY MOUTH TWICE DAILY DIRECTED Rx Instructions: TAKE 1 TABLET BY MOUTH TWICE DAILY DIRECTED vilazodone [Viibryd] 20 mg tablet 20 mg PO DAILY Qty: 90 0RF atorvastatin 10 mg tablet See Rx Instructions .ROUTE .COMPLEX Qty: 90 0RF Dose Instruction: TAKE 1 TABLET BY MOUTH ONCE DAILY FOR CHOLESTEROL Rx Instructions: TAKE 1 TABLET BY MOUTH ONCE DAILY FOR CHOLESTEROL levothyroxine 88 mcg tablet 88 mcg PO DAILY Qty: 90 1RF amitriptyline 10 mg tablet See Rx Instructions .ROUTE .COMPLEX Qty: 120 0RF Dose Instruction: TAKE 4 TABLETS BY MOUTH AT BEDTIME FOR DEPRESSION Rx Instructions: TAKE 4 TABLETS BY MOUTH AT BEDTIME FOR DEPRESSION meloxicam 15 mg tablet See Rx Instructions .ROUTE .COMPLEX Qty: 90 0RF Dose Instruction: TAKE ONE TABLET BY MOUTH EVERY DAY WITH FOOD FOR PAIN Rx Instructions: TAKE ONE TABLET BY MOUTH EVERY DAY WITH FOOD FOR PAIN albuterol sulfate 90 mcg/actuation HFA aerosol inhaler See Rx Instructions .ROUTE .COMPLEX Qty: 8.5 0RF Dose Instruction: INHALE 1 PUFF FOUR TIMES DAILY NEEDED FOR SHORTNESS OF BREATH OR WHEEZING Rx Instructions: INHALE 1 PUFF FOUR TIMES DAILY NEEDED FOR SHORTNESS OF BREATH OR WHEEZING ondansetron HCl 4 mg tablet See Rx Instructions .ROUTE .COMPLEX Qty: 14 0RF Dose Instruction: TAKE 1 TABLET BY MOUTH EVERY 8 HOURS NEEDED FOR NAUSEA AND VOMITING Rx Instructions: TAKE 1 TABLET BY MOUTH EVERY 8 HOURS NEEDED FOR NAUSEA AND VOMITING methylprednisolone [Medrol (Gilbert)] 4 mg tablets,dose pack 4 mg PO DAILY Qty: 21 0RF azithromycin 500 mg tablet 500 mg PO DAILY Qty: 3 0RF Referrals Follow up/Referrals: Chauncey Sam MD [Primary Care Provider] - See instructions Clinical Impressions Clinical Impression: Asthma exacerbation in COPD, Depression, Hypoxia, Encephalopathy Discharge ED Provider: Marcos Hamilton General Adult HPI General Chief complaint: Weakness Stated complaint: vomiting, weakness, feet pain, no appetite Time Seen by Provider: 06/17/22 13:19 History of Present Illness HPI narrative: 56-year-old female presenting with increasing
--- NOTE | 2022-06-17 13:30 | XR_ITS ---
FINAL REPORT CLINICAL HISTORY: shortness of breath COMPARISON: 06/13/2022 FINDINGS: A portable view of the chest was obtained. The heart size is normal. Lung volumes remain low. There are now bibasilar airspace opacities which may represent atelectasis or pneumonia. There is no pneumothorax.. IMPRESSION: New bibasilar airspace opacities. Low lung volumes. Reviewed, Interpreted and Dictated by Sugar Farah MD Transcribed by Jodee Marie Authenticated and [facility]
--- NOTE | 2022-06-17 13:31 | CT_ITS ---
FINAL REPORT TECHNIQUE: Thin section axial images were obtained from skull base to vertex without contrast. Coronal reconstruction images were obtained from the axial data. Exam was performed using dose reduction technique. CLINICAL HISTORY: AMS COMPARISON: 11/10/2019 FINDINGS: There is no mass effect or midline shift. There is no hydrocephalus. There is no intracranial hemorrhage. The posterior fossa is without acute abnormality. The basilar cisterns are preserved. The soft tissues are without acute abnormality. No acute osseous abnormality is identified. IMPRESSION: No acute intracranial abnormality. Reviewed, Interpreted and Dictated by Sugar Farah MD Transcribed by Jodee Marie Authenticated and [facility]
--- NOTE | 2022-06-17 13:31 | PC.NURSE ---
this nurse noticed the patient to be 81% on the monitor. when this nurse went into the room where doctor Hamilton was at bedside. after about 20 seconds the patients oxygen sat returned to 94%. Dr. Hamilton reports seeing multiple episodes of apnea while observing the patient at the bedside. this nurse placed pt on 2L NC on oxygen and moved them to room 4 for cardiac monitoring
[2022-06-17 14:03] LABS: VBG Base Excess 12.2 mmol/L (-2.4-2.3); VBG HCO3 36.6 mmol/L (23-30); VBG Oxygen Saturation 69.3 % (50-70); VBG PH 7.42 mmol/L (7.31-7.41); VBG PO2 35.2 mmol/L (28-40); VBG Total CO2 38.4 mmol/L (23-27)
[2022-06-17 14:03] LABS: Adenovirus,PCR Not Detected (NotDetected); Bordetella Pertussis Not Detected (NotDetected); Chlamydophila Pneumoniae, PCR Not Detected (NotDetected); Coronavirus 19, PCR Not Detected (NotDetected); Coronavirus 229E Not Detected (NotDetected); Coronavirus NL63 Not Detected (NotDetected); Coronavirus OC43 Not Detected (NotDetected); Coronovirus HKU1,PCR Not Detected (NotDetected); Human Metapneumovirus Not Detected (NotDetected); Influenza A, PCR Not Detected (NotDetected); Influenza AH1, 2009 Not Detected (NotDetected); Influenza AH1, PCR Not Detected (NotDetected); Influenza AH3,PCR Not Detected (NotDetected); Influenza B, PCR Not Detected (NotDetected); Mycoplasma Pneumoniae, PCR Not Detected (NotDetected); Parainfluenza 1, PCR Not Detected (NotDetected); Parainfluenza 2, PCR Not Detected (NotDetected); Parainfluenza 3, PCR Not Detected (NotDetected); Parainfluenza 4, PCR Not Detected (NotDetected); Respiratory Syncytial Virus Not Detected (NotDetected); Rhinovirus/Enterovirus Not Detected (NotDetected)
[2022-06-17 14:06] LABS: VBG PCO2 57.2 mmol/L (35-51)
--- NOTE | 2022-06-17 14:06 | PC.NURSE ---
critical bicarb from [facility] reported to ALEXANDER PARHAM
[2022-06-17 14:10] LABS: Basophils # 0.1 K/mm3 (0-0.2); Basophils % 0.8 % (0.1-2.0); Eosinophils # 0.1 K/mm3 (0.0-0.4); Eosinophils % 0.9 % (0.1-12.0); Hemoglobin 12.9 g/dL (12.2-16.2); Lymphocytes # 1.9 K/mm3 (0.7-4.5); Lymphocytes % 16.5 % (10-50); Mean Corpuscular Hemoglobin 26.9 pg (27.0-31.2); Mean Corpuscular Volume 89.6 fl (81-99); Mean Platelet Volume 7.5 fl (7.4-10.4); Monocytes # 0.5 K/mm3 (0.1-1.0); Monocytes % 4.5 % (1.7-9.3); Neutrophils # 9.1 K/mm3 (1.8-7.8); Neutrophils % 77.3 % (37.0-80.0); Platelet Count 350 K/mm3 (142-424); Red Cell Distribution Width 15.5 % (11.5-17.5); White Blood Count 11.8 K/mm3 (4.8-10.8)
--- NOTE | 2022-06-17 14:11 | PC.NURSE ---
asked MD if he would like blood cultures on this pt. stated cultures aren't needed
--- NOTE | 2022-06-17 14:11 | PC.NURSE ---
pt to CT via stretcher at this time
[2022-06-17 14:19] LABS: Alanine Aminotransferase 35 U/L (12-78); Albumin Level 3.6 g/dl (3.5-5.0); Albumin/Globulin Ratio 1.2 (1.1-1.8); Alkaline Phosphatase 108 U/L (38-126); Anion Gap 7.3 mEq/L (5-15); Aspartate Amino Transferase 36 U/L (14-36); Blood Urea Nitrogen 12 mg/dl (7-17); Calcium 8.8 mg/dl (8.4-10.2); Carbon Dioxide 40 mmol/L (22.0-30.0); Chloride 88 mmol/L (98-107); Creatinine Clearance Estimated 93 mL/min (50-200); Estimated Glomerular Filt Rate 74 ml/min (>60); GFR (African American) 90 ML/MIN (>60); Glucose 109 mg/dl (74-100); Potassium 3.3 mmoL/L (3.5-5.1); Sodium 132 mmol/L (136-145); Total Protein,Serum 6.6 g/dl (6.3-8.2)
[2022-06-17 14:24] LABS: D-Dimer 0.92 ug/mL (0.0-0.5)
[2022-06-17 14:33] LABS: NT Pro Brain Natriuretic Pep. 140 pg/mL (0-125); Troponin I < 0.01 ng/ml (0.00-0.034)
--- NOTE | 2022-06-17 15:09 | PC.NURSE ---
ALEXANDER PARHAM speaking with Dr. Cruz Suarez.
--- NOTE | 2022-06-17 15:13 | CT_ITS ---
FINAL REPORT TECHNIQUE: Axial imaging of the chest is obtained after the administration of contrast. 3-D MIP reformatted images were also obtained and reviewed per PE protocol. CLINICAL HISTORY: Shortness of breath COMPARISON: 02/22/2021 FINDINGS: The pulmonary arteries are well filled. There is no evidence of pulmonary embolus. There is no aortic dissection or intimal flap. There is no axillary lymphadenopathy. The previously identified mediastinal and hilar lymphadenopathy has resolved. There has been interval resolution of right upper lobe ground-glass opacities. There is bilateral lower lobe atelectasis. The lungs are otherwise clear. There is no pleural or pericardial effusion. Limited evaluation of the upper abdomen demonstrates a small hypodense lesion of the dome of the liver which is stable. There are bilateral adrenal nodules which are unchanged. No acute findings in the abdomen. There is no acute osseous abnormality. IMPRESSION: No evidence of pulmonary embolism or aortic dissection. Bilateral lower lobe atelectasis. Resolved right upper lobe pneumonia. Resolved lymphadenopathy. Reviewed, Interpreted and Dictated by Sugar Farah MD Transcribed by Jodee Marie Authenticated and [facility]
--- NOTE | 2022-06-17 15:16 | ECG_ITS ---
APPROVED REPORT Exam: Resting ECG HR:98 bpm ECG Measurements Heart Rate 98 AXES ID 171 P 73 QRSd 91 QRS 42 QT 363 T 35 QTc 419 Conclusion SINUS RHYTHM WITH OCCASIONAL SUPRAVENTRICULAR PREMATURE COMPLEXES LOW QRS VOLTAGE IN PRECORDIAL LEADS [QRS DEFLECTION < 1.0 mV IN CHEST LEADS] POSSIBLE RIGHT VENTRICULAR CONDUCTION DELAY [RSR (QR) IN V1/V2] NONSPECIFIC T-WAVE ABNORMALITY BORDERLINE ECG UNCONFIRMED REPORT Electronically signed by : Leo Nieto MD 06/20/2022 19:53:17
--- NOTE | 2022-06-17 15:26 | PC.NURSE ---
notified care management of admission, spoke with marisela
[2022-06-17 16:07] LABS: Amphetamine/Metha Screen,Urine Negative ng/ml (<1000); Benzodiazepines Screen,Urine Negative ng/ml (<200)
[2022-06-17 16:08] LABS: Barbiturates Screen,Urine Negative ng/ml (<200)
[2022-06-17 16:09] LABS: Cannabinoid Screen,Urine Negative ng/ml (<50); Cocaine Screen,Urine Negative ng/ml (<300)
[2022-06-17 16:10] LABS: Methadone Screen,Urine Negative ng/ml (<300); Opiate Screen,Urine Positive ng/ml (<300)
[2022-06-17 16:11] LABS: Phencyclidine Screen,Urine Negative ng/ml (<25)
--- NOTE | 2022-06-17 16:21 | PC.NURSE ---
Dr. Davidson at
--- NOTE | 2022-06-17 16:31 | PC.NURSE ---
Dr. Mari Suarez at pt bedside at this time. verbal order received for PO nystatin to be swallowed and not sip out and for Hep Panel and HIV panel on this patient
--- NOTE | 2022-06-17 16:37 | PC.NURSE ---
called pharmacy and spoke to Aydin who confirmed that PO nystatin can be swallowed
--- NOTE | 2022-06-17 17:14 | PC.NURSE ---
report called to KAVON Mario
[2022-06-17 17:17] LABS: Troponin I 0.02 ng/ml (0.00-0.034)
--- NOTE | 2022-06-17 17:32 | EXP.HP ---
History of Present Illness *Admission Date: 06/17/22 *Reason for visit:: Encephalopathy *History of present illness: 56-year-old female presenting with increasing shortness of breath lethargy and altered mental status.? Her best friend who also lives with her is a primary historian and the patient's history is limited secondary to the patient's clinical status.? She was seen several days ago by Dr. Ellison in the emergency department diagnosed with a COPD exacerbation and was sent home and states that she had nausea vomiting and decreased p.o. intake and has been unable to keep her medications down.? Her friend states that she has been depressed over the last month and has had increasing decline in her ability and desire to interact with things that she normally interacts with.? She is not specifically verbalized any suicidal ideations or attempts but her clinical status has declined over the last month and her friend states that she has no desire to improve.? She has increasing shortness of breath cough no fevers or chills.? But over the last few days? her mental status is slowly declined.? There have been no focal deficits from history. [facility] Disclaimer: The information contained in this section may have been updated after the patient was seen, as this information can be updated by other users. Medical History Abnormal Electrocardiogram Chest pain Dyspnea Elevated TSH Hyperlipidemia (~01/02/18) Social History Smoking Status: Current every day smoker tobacco type: cigarettes packs per day: 1 second hand exposure: Yes alcohol intake: never substance use type: denies use current occupational status: other Travel in the last 8 weeks: None household members: significant other housing: house caffeine: No Review of Systems Review of Systems Review of systems:: unable to obtain Meds Home Medications and Allergies Home Medications Medication Instructions Recorded Confirmed Type gabapentin 800 mg tablet 800 mg PO TID Pain 09/07/18 06/13/22 History ipratropium 0.5 mg-albuterol 3 mg See Rx Instructions .Route 04/26/21 06/13/22 Rx (2.5 mg base)/3 mL nebulization .COMPLEX #180 mL soln potassium chloride 20 mEq See Rx Instructions .Route 10/26/21 06/13/22 Rx tablet,extended release(part/cryst) .COMPLEX #30 tabs sumatriptan succinate 100 mg tablet See Rx Instructions .Route 10/26/21 06/13/22 Rx .COMPLEX #9 tabs budesonide-formoterol HFA 80 See Rx Instructions .Route 02/02/22 06/13/22 Rx mcg-4.5 mcg/actuation aerosol .COMPLEX #10.2 grams inhaler (Symbicort) bumetanide 1 mg tablet See Rx Instructions .Route 02/02/22 06/13/22 Rx .COMPLEX #30 tabs sucralfate 1 gram tablet See Rx Instructions .Route 02/02/22 06/13/22 Rx .COMPLEX #60 tabs hydrocodone 10 mg-acetaminophen 1 tab PO Q8H PRN 03/29/22 06/13/22 History 325 mg tablet atorvastatin 10 mg tablet See Rx Instructions .Route 04/08/22 06/13/22 Rx .COMPLEX #90 ea levothyroxine 88 mcg tablet 88 mcg PO DAILY #90 tabs 04/08/22 06/13/22 Rx vilazodone 20 mg tablet (Viibryd) 20 mg PO DAILY #90 tabs 04/08/22 06/13/22 Rx metoprolol succinate 25 mg 25 mg PO QDAY #90 tabs 05/10/22 06/13/22 Rx tablet,extended release 24 hr amitriptyline 10 mg tablet See Rx Instructions .Route 05/20/22 06/13/22 Rx .COMPLEX #120 tabs meloxicam 15 mg tablet See Rx Instructions .Route 05/20/22 06/13/22 Rx .COMPLEX #90 tabs azithromycin 500 mg tablet 500 mg PO DAILY #3 tabs 06/13/22 Rx methylprednisolone 4 mg tablets in 4 mg PO DAILY #21 tabs 06/13/22 Rx a dose pack (Medrol (Gilbert)) albuterol sulfate 90 mcg/actuation See Rx Instructions .Route 06/14/22 Rx aerosol inhaler .COMPLEX #8.5 grams ondansetron HCl 4 mg tablet See Rx Instructions .Route 06/15/22 Rx .COMPLEX #14 ea New Prescriptions to Start Prescriptions: Allergies Allergy/AdvRe
--- NOTE | 2022-06-17 18:55 | PC.NURSE ---
pt alert x4, no skin issues noted, lung sounds diminished. 2l via nc, pt uses supplemental o2 at home. pt appears very tired, pt answered most of admission questions with eyes closed. x1 assist to the bsc. cb within reach, bed in lowest position for pt safety. npo with ice chips.
[2022-06-17 20:01] LABS: Troponin I 0.01 ng/ml (0.00-0.034)
[2022-06-18] VITALS: BP 120/72; PULSE 97; RESP 18; TEMP 36.8; O2SAT 95
--- NOTE | 2022-06-18 00:16 | PC.NURSE ---
spoke with hospitalist regarding patient stating she wasn't feeling well, complaining of feet cramps and throat hurting. vss. stated she would order prn tylenol.
[2022-06-18 04:00] VITALS: BP 121/72; PULSE 90; RESP 18; TEMP 36.4; O2SAT 96; BMI 28.3
--- NOTE | 2022-06-18 06:21 | PC.NURSE ---
pt is a&ox4. 2LNC. pt had complaints of her feet hurting through the night. prn tylenol gave.
[2022-06-18 07:46] VITALS: BP 119/72; PULSE 113; RESP 18; TEMP 36.6; O2SAT 90
[2022-06-18 08:09] LABS: Basophils % 0.2 % (0.1-2.0); Eosinophils # 0.1 K/mm3 (0.0-0.4); Eosinophils % 1.2 % (0.1-12.0); Lymphocytes % 9.9 % (10-50); Mean Corpuscular HGB Conc 32.6 g/dL (31.8-35.4); Mean Corpuscular Hemoglobin 28.7 pg (27.0-31.2); Mean Corpuscular Volume 88.2 fl (81-99); Mean Platelet Volume 8.2 fl (7.4-10.4); Monocytes # 0.3 K/mm3 (0.1-1.0); Monocytes % 2.7 % (1.7-9.3); Neutrophils # 8.6 K/mm3 (1.8-7.8); Neutrophils % 85.9 % (37.0-80.0); Platelet Count 331 K/mm3 (142-424); Red Blood Count 3.86 M/mm3 (4.20-5.40); Red Cell Distribution Width 15.5 % (11.5-17.5)
[2022-06-18 08:23] LABS: Hemoglobin 11.1 g/dL (12.2-16.2); MANUAL DIFFERENTIAL MANUAL DIFFERENTIAL (MANUAL DIFF)
[2022-06-18 08:29] LABS: Chloride 94 mmol/L (98-107); Potassium 3.3 mmoL/L (3.5-5.1); Sodium 131 mmol/L (136-145)
[2022-06-18 08:32] LABS: Alanine Aminotransferase 24 U/L (12-78); Albumin Level 2.9 g/dl (3.5-5.0); Albumin/Globulin Ratio 1.1 (1.1-1.8); Alkaline Phosphatase 80 U/L (38-126); Anion Gap 6.3 mEq/L (5-15); Aspartate Amino Transferase 32 U/L (14-36); Bilirubin,Total 0.8 mg/dl (0.2-1.3); Blood Urea Nitrogen 13 mg/dl (7-17); Calcium 8.1 mg/dl (8.4-10.2); Carbon Dioxide 34 mmol/L (22.0-30.0); Creatinine Clearance Estimated 128 mL/min (50-200); Estimated Glomerular Filt Rate 103 ml/min (>60); GFR (African American) 125 ML/MIN (>60); Globulin 2.7 g/dL (1.3-3.2); Glucose 123 mg/dl (74-100); Phosphorous 3.2 mg/dl (2.5-4.5); Total Protein,Serum 5.6 g/dl (6.3-8.2)
[2022-06-18 08:44] LABS: Hypochromasia 1+; Lymphocytes % 17 % (10-50); Monocytes % 3 % (2-9); Neutrophils % 80 % (42-76); Platelet Estimate Normal; Total Cells Counted 100
--- NOTE | 2022-06-18 08:51 | HMH.PHAINT1 ---
Pharmacy Intervention Comments: MEDICATION RECONCILIATION COMPLETED ON PATIENT USING EXTERNAL FILL HISTORY FROM PHARMACY AND PATIENT INTERVIEW. -LILIANA AGUILERA, NISHD
--- NOTE | 2022-06-18 09:35 | PC.NURSE ---
courtesy tech note; rounded on pt, pt states she is cold and wants to go home. Provided pt with a warm blanket. pt denied the need to use the bathroom. Refused breakfast, refused an alternative breakfast choice. no further requests at this time. Call light within reach. SANTI Ozuna
--- NOTE | 2022-06-18 09:43 | PC.NURSE ---
pt started calling out around [phone] stating we need to get her a wheelchair and discharge papers. the pts roommate arrived and states she has been taking care of the pt at home the last year. the pt and the roommate have been arguing in the room. pt states she doesnt want help here and she has people at home to take care of her. carole notified.
--- NOTE | 2022-06-18 13:44 | EXP.DC.SUM ---
General Admission date:: 06/17/22 Discharge date: 06/18/22 HPI HPI HPI: 56-year-old female presenting with increasing shortness of breath lethargy and altered mental status.? Her best friend who also lives with her is a primary historian and the patient's history is limited secondary to the patient's clinical status.? She was seen several days ago by Dr. Ellison in the emergency department diagnosed with a COPD exacerbation and was sent home and states that she had nausea vomiting and decreased p.o. intake and has been unable to keep her medications down.? Her friend states that she has been depressed over the last month and has had increasing decline in her ability and desire to interact with things that she normally interacts with.? She is not specifically verbalized any suicidal ideations or attempts but her clinical status has declined over the last month and her friend states that she has no desire to improve.? She has increasing shortness of breath cough no fevers or chills.? But over the last few days? her mental status is slowly declined.? There have been no focal deficits from history. Hospital Course Hospital Course Hospital Course: Patient admitted for COPD exacerbation and confusion. Symptoms improved but still unable to tolerate much orally due to thrush and discomfort. Patient required assistance to get to the bathroom and is unstable on her feet. On morning rounds, patient stated she was leaving. Informed her this was not a good idea and against my recommendation. Recommended that she needed physical therapy eval, continue treatment for her thrush, and continued inpatient management until she was tolerating oral medication and had a stable discharge plan. She stated she was going home anyway. Called her roommate who came and got her. No medication sent at discharge as patient left AGAINST MEDICAL ADVICE. Exam Data for Last 24 hours Vital signs and Labs for Last 24 Hours: Temp Pulse Resp BP Pulse Ox 97.8 F 113 H 18 119/72 90 L 06/18/22 07:46 06/18/22 07:46 06/18/22 07:46 06/18/22 07:46 06/18/22 07:46 Laboratory Results - last 24 hr 06/17/22 13:30: VBG pH 7.42 H, VBG pCO2 57.2 H, VBG pO2 35.2, VBG HCO3 36.6 H, VBG Total CO2 38.4 H, VBG O2 Saturation 69.3, VBG Base Excess 12.2 H 06/17/22 13:53: Chlamy pneumoniae PCR Not detected, Adenovirus (PCR) Not detected, B. pertussis DNA (PCR) Not detected, Coronavirus OC43 (PCR) Not detected, Coronavirus HKU1 (PCR) Not detected, Coronavirus 229E (PCR) Not detected, SARS-CoV-2 (PCR) Not detected, Coronavirus NL63 (PCR) Not detected, Human Metapneumovir PCR Not detected, Influenza A (H1) PCR Not detected, Influ A (H1N1/09) PCR Not detected, Influenza A (H3) PCR Not detected, Influenza Type A (PCR) Not detected, Influenza Type B (PCR) Not detected, M. pneumoniae (PCR) Not detected, Parainfluenza 1 (PCR) Not detected, Parainfluenza 2 (PCR) Not detected, Parainfluenza 3 (PCR) Not detected, Parainfluenza 4 (PCR) Not detected, RSV (PCR) Not detected, Entero/Rhino (PCR) Not detected 06/17/22 13:53: WBC 11.8 H, RBC 4.80, Hgb 12.9, Hct 43.0, MCV 89.6, MCH 26.9 L, MCHC 30.0 L, RDW 15.5, Plt Count 350, MPV 7.5, Neut % (Auto) 77.3, Lymph % (Auto) 16.5, Swain % (Auto) 4.5, Eos % (Auto) 0.9, Baso % (Auto) 0.8, Neut # (Auto) 9.1 H, Lymph # (Auto) 1.9, Swain # (Auto) 0.5, Eos # (Auto) 0.1, Baso # (Auto) 0.1 06/17/22 13:53: D-Dimer 0.92 H 06/17/22 13:53: Sodium 132 L, Potassium 3.3 L, Chloride 88 L, Carbon Dioxide 40 H, Anion Gap 7.3, BUN 12, Creatinine 0.80, Estimated Creat Clear 93, Estimated GFR 74, Est GFR ( Amer) 90, Glucose 109 H, Calcium 8.8, Total Bilirubin 1.0, AST 36, ALT 35, Alkaline Phosphatase 108, Troponin I < 0.01, NT-Pro-B Natriuret Pep 140 H, Total Protein 6.6, Albumin 3.6, Globulin 3.0, Albumin/Globulin Ratio 1.2 06/17/22 15:18: Urine Opiates Screen Positive H, Urine Methadone Screen Negative, Ur Barbituates Screen Negative, Ur Phencyclidine Scrn Negative, Ur Amphetamines Screen Negative
[2022-06-19 10:14] LABS: HIV Screen 4th Generation wRfx Non Reactive (Non Reactive)
[2022-06-22 04:07] LABS: Hep A Ab, IgM NEGATIVE; Hepatitis B Core Antibody IgM NEGATIVE; Hepatitis B Surface Antigen NEGATIVE; Hepatitis C Antibody NON REACTIVE
== END 2022-06-18 12:02 | disposition left against medical advice (07) ==
LOC: ER 15:17 → 2ND 16:28
PROVIDERS: Admitting Provider Student in an Organized Health Care Education/Training Program; Emergency Provider Student in an Organized Health Care Education/Training Program; PCP Emergency Medicine; Visit Provider Student in an Organized Health Care Education/Training Program
DX: J44.1 Chronic obstructive pulmonary disease with (acute) exacerbation (principal); F17.210 Nicotine dependence, cigarettes, uncomplicated; B37.0 Candidal stomatitis; G93.40 Encephalopathy, unspecified; J45.901 Unspecified asthma with (acute) exacerbation; Z79.899 Other long term (current) drug therapy; E03.9 Hypothyroidism, unspecified; R06.9 Unspecified abnormalities of breathing; Z20.822 Contact with and (suspected) exposure to COVID-19; Z72.51 High risk heterosexual behavior; R53.1 Weakness; Z11.4 Encounter for screening for human immunodeficiency virus [HIV]
CPT/HCPCS: G0378; 36415; 70450; 71045; 71275; 80053; 80074; 80305; 82803; 83735; 83880; 84100; 84484; 85007; 85025; 85378; 86703; 87581; 87632; 87798; 93005; 94640; 99285; C9803; G0432; Q9967; U0003; U0005

== ENCOUNTER 2022-06-20 14:51 | Observation (INO) | payer MEDICARE, MEDICAID, SELFPAY ==
[2022-06-20] VITALS (11 sets, daily range): BP systolic 104–131; BP diastolic 62–91; PULSE 101–119; RESP 17–20; TEMP 36.6–36.8; O2SAT 95–100; BMI 27.4; BMI 27.5
--- NOTE | 2022-06-20 15:02 | ECG_ITS ---
APPROVED REPORT Exam: Resting ECG HR:117 bpm ECG Measurements Heart Rate 117 AXES MS 166 P 75 QRSd 75 QRS -1 QT 340 T -9 QTc 410 Conclusion SINUS TACHYCARDIA POSSIBLE LEFT ATRIAL ENLARGEMENT [-0.1mV P-WAVE IN V1/V2] LOW QRS VOLTAGE IN PRECORDIAL LEADS [QRS DEFLECTION < 1.0 mV IN CHEST LEADS] POSSIBLE RIGHT VENTRICULAR CONDUCTION DELAY [RSR (QR) IN V1/V2] NONSPECIFIC ST & T-WAVE ABNORMALITY ABNORMAL RHYTHM ECG UNCONFIRMED REPORT Electronically signed by : Leo Nieto MD 06/20/2022 19:44:26
--- NOTE | 2022-06-20 15:10 | HMH.EDGENADL ---
Discharge Plan Disposition Chief Complaint: Weakness Prescriptions Prescriptions: No Action gabapentin 800 mg tablet 800 mg PO TID hydrocodone-acetaminophen 10-325 mg tablet 1 tab PO Q8HP PRN (Reason: Back Pain) atorvastatin 10 mg tablet 10 mg PO DAILY sumatriptan succinate 100 mg tablet 100 mg PO DAILYP PRN (Reason: Migraine Headache) meloxicam 15 mg tablet 15 mg PO DAILY levothyroxine 88 mcg tablet 88 mcg PO DAILY potassium chloride 20 mEq tablet,ER particles/crystals 20 meq PO DAILY amitriptyline 10 mg tablet 40 mg PO HS bumetanide 1 mg tablet 1 mg PO DAILY metoprolol succinate 25 mg tablet extended release 24 hr 25 mg PO DAILY albuterol sulfate 90 mcg/actuation HFA aerosol inhaler 1 puff inhalation QIDP PRN (Reason: Shortness Of Breath) budesonide-formoterol [Symbicort] 80-4.5 mcg/actuation HFA aerosol inhaler 2 puff inhalation BID ondansetron HCl 4 mg tablet 4 mg PO Q8HP PRN (Reason: Nausea And Vomiting) Label Comments: TAKE 1 TABLET BY MOUTH EVERY 8 HOURS NEEDED FOR NAUSEA AND VOMITING vilazodone 20 mg tablet 20 mg PO DAILY Referrals Follow up/Referrals: Chauncey Sam MD [Primary Care Provider] - See instructions Discharge ED Provider: Marcos Hamilton General Adult HPI General Chief complaint: Weakness Stated complaint: weakness; soa Time Seen by Provider: 06/20/22 15:10 Mode of Arrival: Wheelchair Source of Information: Patient and Relative Limitations: Physical Limitations Description of Symptoms (Recalled from ER Triage Doc. by RN): Pt returns to ED c/o weakness, after leaving AMA on 06/18 reportedly for similar eval, r/o PNA History of Present Illness HPI narrative: Patient is a 56-year-old female presenting with her third emergency department visit in the last week. She was initially seen and treated for COPD exacerbation returned ultimately admitted for altered mental status COPD exacerbation and depression. She was at admitted and left AMA after improving and finding out that she needed to be sent to a rehab facility she states that she did not want to go to a senior care. She felt as though she was being sent to a senior care and in fact she was being told she needed to go to rehab. However when she went home she states that her weakness is only worsened she has had some oral thrush and she had decreased p.o. intake and while her mental status has improved from a few days ago she has profound weakness still cannot care for herself at home and is returning to the emergency department to be readmitted to be sent to rehab facility as was previously planned when she was in the hospital. She states that her shortness of breath is mildly improved but still significantly worse than it was a month ago. No increasing wheezing cough or shortness of breath since last hospitalization when in fact I saw her on her admission and ED visit at that time. Related Data Home Medications Medication Instructions Recorded Confirmed gabapentin 800 mg tablet 800 mg PO TID Pain 09/07/18 06/17/22 hydrocodone 10 mg-acetaminophen 1 tab PO Q8HP PRN Back Pain 03/29/22 06/18/22 325 mg tablet albuterol sulfate 90 mcg/actuation 1 puff inhalation QIDP PRN 06/17/22 06/18/22 aerosol inhaler Shortness Of Breath amitriptyline 10 mg tablet 40 mg PO HS Depression 06/17/22 06/18/22 atorvastatin 10 mg tablet 10 mg PO DAILY Cholesterol 06/17/22 06/18/22 budesonide-formoterol HFA 80 2 puff inhalation BID COPD 06/17/22 06/18/22 mcg-4.5 mcg/actuation aerosol inhaler (Symbicort) bumetanide 1 mg tablet 1 mg PO DAILY Fluid 06/17/22 06/18/22 levothyroxine 88 mcg tablet 88 mcg PO DAILY THYROID 06/17/22 06/17/22 meloxicam 15 mg tablet 15 mg PO DAILY Arthritis 06/17/22 06/18/22 metoprolol succinate 25 mg 25 mg PO DAILY Hypertension 06/17/22 06/18/22 tablet,extended release 24 hr potassium chloride 20 mEq 20 meq PO DAILY Supplement 06/17/22
--- NOTE | 2022-06-20 15:19 | XR_ITS ---
FINAL REPORT CLINICAL HISTORY: dyspnea COMPARISON: June 17, 2022 FINDINGS: The heart size is normal. The mediastinum is within normal limits. There is mild stable scarring in the right lung base. There is no acute cardiopulmonary process. There is no pleural effusion. There is no pneumothorax. The bony thorax is intact. IMPRESSION: No acute cardiopulmonary process. Reviewed, Interpreted and Dictated by Benny Rachel MD Transcribed by Mauro Castro Authenticated and [facility]
[2022-06-20 17:17] LABS: Basophils # 0.1 K/mm3 (0-0.2); Basophils % 0.5 % (0.1-2.0); Eosinophils # 0.1 K/mm3 (0.0-0.4); Hematocrit 38.4 % (37.0-47.0); Hemoglobin 11.6 g/dL (12.2-16.2); Lymphocytes # 1.7 K/mm3 (0.7-4.5); Lymphocytes % 13.3 % (10-50); Mean Corpuscular HGB Conc 30.2 g/dL (31.8-35.4); Mean Corpuscular Hemoglobin 26.8 pg (27.0-31.2); Mean Corpuscular Volume 88.8 fl (81-99); Mean Platelet Volume 7.7 fl (7.4-10.4); Monocytes # 0.8 K/mm3 (0.1-1.0); Monocytes % 5.9 % (1.7-9.3); Neutrophils % 79.3 % (37.0-80.0); Platelet Count 376 K/mm3 (142-424); Red Blood Count 4.32 M/mm3 (4.20-5.40); Red Cell Distribution Width 15.6 % (11.5-17.5); White Blood Count 12.6 K/mm3 (4.8-10.8)
[2022-06-20 17:21] LABS: Alanine Aminotransferase 32 U/L (12-78); Albumin Level 3.4 g/dl (3.5-5.0); Albumin/Globulin Ratio 1.3 (1.1-1.8); Alkaline Phosphatase 88 U/L (38-126); Anion Gap 7.7 mEq/L (5-15); Aspartate Amino Transferase 33 U/L (14-36); Bilirubin,Total 0.8 mg/dl (0.2-1.3); Blood Urea Nitrogen 10 mg/dl (7-17); Calcium 8.3 mg/dl (8.4-10.2); Carbon Dioxide 34 mmol/L (22.0-30.0); Chloride 92 mmol/L (98-107); Creatinine Clearance Estimated 124 mL/min (50-200); Estimated Glomerular Filt Rate 103 ml/min (>60); GFR (African American) 125 ML/MIN (>60); Globulin 2.7 g/dL (1.3-3.2); Glucose 111 mg/dl (74-100); Sodium 131 mmol/L (136-145); Total Protein,Serum 6.1 g/dl (6.3-8.2)
[2022-06-20 17:22] LABS: Magnesium 2.1 mg/dl (1.6-2.3); Phosphorous 3.2 mg/dl (2.5-4.5); Potassium 2.7 mmoL/L (3.5-5.1)
--- NOTE | 2022-06-20 17:23 | PC.NURSE ---
consulting technical directorShelbi lopez, reported lab value result of potassium 2.7; ED physician notified
[2022-06-20 17:30] LABS: NT Pro Brain Natriuretic Pep. 179 pg/mL (0-125)
[2022-06-20 17:42] LABS: Troponin I < 0.01 ng/ml (0.00-0.034)
--- NOTE | 2022-06-20 17:56 | PC.NURSE ---
rounded on pt, another blanket given
--- NOTE | 2022-06-20 18:03 | PC.NURSE ---
house aware of admission
--- NOTE | 2022-06-20 18:26 | PC.NURSE ---
report called to Ny JACOBSON, waiting covid results before pt going to the floor
[2022-06-20 18:31] LABS: Coronavirus 19, PCR Not Detected (NotDetected); Influenza A, PCR Not Detected (NotDetected); Influenza B, PCR Not Detected (NotDetected)
--- NOTE | 2022-06-20 19:04 | PC.NURSE ---
pt covid has 5 minutes according to lab
--- NOTE | 2022-06-20 19:32 | PC.NURSE ---
Hospitalist, Yue at [facility]
--- NOTE | 2022-06-20 19:42 | PC.NURSE ---
PT ARRIVED TO FLOOR AT THIS TIME
--- NOTE | 2022-06-20 19:49 | EXP.HP ---
History of Present Illness *Admission Date: 06/20/22 *Reason for visit:: Generalized weakness *History of present illness: This is a 56 year old female with PMHx of COPD, ALPA, tobacco abuse, HLD, HTN who presents to the emergency department with complaints of generalized weakness. She was recently admitted for COPD exacerbation and chronic hypoxic respiratory failure. During previous admission, she was treated from COPD exacerbation, encephalopathy secondary to poly pharmacy and had return of baseline mental status. Over the course of her previous admission, she was noted to be progressively weak and was offered inpatient rehab but patiently ultimately denied and signed out against medical advise. She presents back today with complaints of continued and worsening generalized weakness at home with poor PO intake. She endorses thrush of the mouth secondary to inhaler usage which has made eating difficult. She complains of continued shortness of breath. On my lab review, notable for hypokalmia with K of 2.7, otherwise unremarkable. Due to continued weakness and hypokalemia, Internal Medicine was consulted and evaluated and in agreement for admission further evaluation and management. [facility] Disclaimer: The information contained in this section may have been updated after the patient was seen, as this information can be updated by other users. Medical History Abnormal Electrocardiogram Chest pain Dyspnea Elevated TSH Hyperlipidemia (~01/02/18) Family History (Updated 06/17/22 @ 18:21 by Jaylene Brody RN) Other No significant family history Social History (Updated 06/17/22 @ 18:22 by Jaylene Brody RN) Smoking Status: Unknown if ever smoked second hand exposure: Yes alcohol intake: never substance use type: denies use current occupational status: other Travel in the last 8 weeks: None household members: significant other housing: house caffeine: No Review of Systems Review of Systems Review of systems:: pertinent systems reviewed and negative unless documented below Constitutional Constitutional: Reports daytime sleepiness, Reports poor appetite, Reports lethargy and Reports malaise *Cardiovascular Cardiovascular: Reports dyspnea *Respiratory Respiratory: Reports dyspnea Meds Home Medications and Allergies Home Medications Medication Instructions Recorded Confirmed Type gabapentin 800 mg tablet 800 mg PO TID Pain 09/07/18 06/20/22 History hydrocodone 10 mg-acetaminophen 1 tab PO Q8HP PRN Back Pain 03/29/22 06/20/22 History 325 mg tablet albuterol sulfate 90 mcg/actuation 1 puff inhalation QIDP PRN 06/17/22 06/20/22 History aerosol inhaler Shortness Of Breath amitriptyline 10 mg tablet 40 mg PO HS Depression 06/17/22 06/20/22 History atorvastatin 10 mg tablet 10 mg PO DAILY Cholesterol 06/17/22 06/20/22 History budesonide-formoterol HFA 80 2 puff inhalation BID COPD 06/17/22 06/20/22 History mcg-4.5 mcg/actuation aerosol inhaler (Symbicort) bumetanide 1 mg tablet 1 mg PO DAILY Fluid 06/17/22 06/20/22 History levothyroxine 88 mcg tablet 88 mcg PO DAILY THYROID 06/17/22 06/20/22 History meloxicam 15 mg tablet 15 mg PO DAILY Arthritis 06/17/22 06/20/22 History metoprolol succinate 25 mg 25 mg PO DAILY Hypertension 06/17/22 06/20/22 History tablet,extended release 24 hr potassium chloride 20 mEq 20 meq PO DAILY Supplement 06/17/22 06/20/22 History tablet,extended release(part/cryst) sumatriptan succinate 100 mg tablet 100 mg PO DAILYP PRN Migraine 06/17/22 06/20/22 History Headache ondansetron HCl 4 mg tablet 4 mg PO Q8HP PRN Nausea And 06/18/22 06/20/22 History Vomiting vilazodone 20 mg tablet 20 mg PO DAILY MOOD 06/18/22 06/20/22 History New Prescriptions to Start Prescriptions: Allergies Allergy/AdvReac Type Severity Reaction Status Date / Time Penicillins Allergy Intermediate Hives Verified 06/13/22 11:25
[2022-06-20 19:54] LABS: Troponin I < 0.01 ng/ml (0.00-0.034)
[2022-06-20 21:52] LABS: Troponin I < 0.01 ng/ml (0.00-0.034)
[2022-06-21] VITALS (13 sets, daily range): BP systolic 101–110; BP diastolic 50–66; PULSE 83–114; RESP 17–20; TEMP 36.6–36.9; O2SAT 90–97; BMI 27.5
--- NOTE | 2022-06-21 00:36 | EXP.PN ---
Subjective *Date: 06/21/22 *Time: 09:00 Interval history: No acute events overnight. She's lost 17 pounds since March. She has a history of constipation. Exam Data for Last 24 hours Vital signs and Labs for Last 24 Hours: Temp Pulse Resp BP Pulse Ox 97.8 F 110 H 20 120/66 99 06/20/22 20:00 06/20/22 20:57 06/20/22 20:00 06/20/22 20:00 06/20/22 20:57 Laboratory Results - last 24 hr 06/20/22 16:56: WBC 12.6 H D, RBC 4.32, Hgb 11.6 L, Hct 38.4, MCV 88.8, MCH 26.8 L, MCHC 30.2 L, RDW 15.6, Plt Count 376, MPV 7.7, Neut % (Auto) 79.3, Lymph % (Auto) 13.3, [place] % (Auto) 5.9, Eos % (Auto) 1.0, Baso % (Auto) 0.5, Neut # (Auto) 10.0 H, Lymph # (Auto) 1.7, [place] # (Auto) 0.8, Eos # (Auto) 0.1, Baso # (Auto) 0.1 06/20/22 16:56: Sodium 131 L, Potassium 2.7 L*, Chloride 92 L, Carbon Dioxide 34 H, Anion Gap 7.7, BUN 10, Creatinine 0.60, Estimated Creat Clear 124, Estimated GFR 103, Est GFR ( Amer) 125, Glucose 111 H, Calcium 8.3 L, Total Bilirubin 0.8, AST 33, ALT 32 D, Alkaline Phosphatase 88, Total Protein 6.1 L, Albumin 3.4 L, Globulin 2.7, Albumin/Globulin Ratio 1.3 06/20/22 16:56: Phosphorus 3.2, Magnesium 2.1, Troponin I < 0.01 06/20/22 16:56: NT-Pro-B Natriuret Pep 179 H 06/20/22 18:26: SARS-CoV-2 (PCR) Not detected, Influenza A Untype (PCR) Not detected, Influenza Type B (PCR) Not detected 06/20/22 18:50: Troponin I < 0.01 06/20/22 21:10: Troponin I < 0.01 I & O for Last 24 hours: Intake & Output 06/18/22 06/19/22 06/20/22 06/21/22 23:59 23:59 23:59 23:59 Weight 74.933 kg Constitutional Constitutional: no acute distress *Routine HEENT Exam Head: Present normocephalic Eye: Present EOMI and PERRL ENT: Present mucous membranes moist *Routine Neck Exam Neck: Present supple; Absent lymphadenopathy *Routine Respiratory Exam Respiratory: Present CTA bilaterally *Routine Cardiovascular Exam Cardiovascular: Present RRR *Routine Abdominal Exam Abdominal: Present soft and normoactive bowel sounds; Absent tenderness *Routine Extremities Exam Extremities: Absent cyanosis, clubbing or edema *Routine Skin Exam Skin: Present warm; Absent rash *Routine Neurological Exam Neurological: Present alert and oriented X3 Assessment and Plan *Assessment and plan (1) Acute hypokalemia: Status: Acute Category: Medical Code(s): E87.6 - Hypokalemia (2) Weakness: Status: Acute Category: Medical Code(s): R53.1 - Weakness (3) Adult failure to thrive: Status: Acute Category: Medical Code(s): R62.7 - Adult failure to thrive (4) Thrush: Status: Acute Category: Medical Code(s): B37.0 - Candidal stomatitis (5) Chronic bronchitis with COPD (chronic obstructive pulmonary disease): Status: Acute Category: Medical Code(s): J44.9 - Chronic obstructive pulmonary disease, unspecified Plan Ms. Rubin is a 56 year old female with a past medical history of COPD, ALPA, chronic hypoxic respiratory failure on liters NC at baseline, HTN, HLD and hypothyroidism who was admitted on 06/20 with hypokalemia, thrush, generalized weakness and poor oral intake. #hypokalemia #thrush #COPD #ALPA #severe protein calorie malnutrition Start PRN Miralax Replacing electrolytes Nystatin for thrush PT/OT HIV and Hep panel send out studies are pending Full code DVT ppx: heparin subcu
[2022-06-21 03:27] LABS: Appearance,Urine SL CLOUDY (Clear); Blood, Urine Negative (Negative); Color,Urine DK YELLOW (Yellow); Glucose,Urine (UA) Negative (Negative); Ketones,Urine Negative (Negative); Leukocyte Esterase,Urine Negative (Negative); Microscopic, Urine URINE MICROSCOPIC (MICROSCOPIC); Nitrate,Urine Negative (Negative); Protein,Urine TRACE (Negative)
[2022-06-21 03:32] LABS: Bilirubin,Urine 1+ (Negative)
[2022-06-21 03:46] LABS: RBC,Urine Occasional #/hpf (0-3); WBC,Urine Occasional #/hpf (0-3)
[2022-06-21 03:47] LABS: Squamous Epithelial Cell,Urine Occasional #/hpf (0-5)
[2022-06-21 06:38] LABS: Basophils # 0.1 K/mm3 (0-0.2); Basophils % 0.7 % (0.1-2.0); Eosinophils # 0.1 K/mm3 (0.0-0.4); Eosinophils % 1.3 % (0.1-12.0); Hematocrit 35.8 % (37.0-47.0); Hemoglobin 10.9 g/dL (12.2-16.2); Lymphocytes # 2.4 K/mm3 (0.7-4.5); Lymphocytes % 28.6 % (10-50); Mean Corpuscular HGB Conc 30.5 g/dL (31.8-35.4); Mean Corpuscular Volume 88.5 fl (81-99); Monocytes # 0.8 K/mm3 (0.1-1.0); Monocytes % 9.7 % (1.7-9.3); Neutrophils # 5.1 K/mm3 (1.8-7.8); Neutrophils % 59.8 % (37.0-80.0); Platelet Count 238 K/mm3 (142-424); Red Blood Count 4.04 M/mm3 (4.20-5.40); Red Cell Distribution Width 15.3 % (11.5-17.5); White Blood Count 8.5 K/mm3 (4.8-10.8)
[2022-06-21 07:02] LABS: Chloride 103 mmol/L (98-107)
[2022-06-21 07:03] LABS: Potassium 4.8 mmoL/L (3.5-5.1); Sodium 133 mmol/L (136-145)
[2022-06-21 07:05] LABS: Alanine Aminotransferase 23 U/L (12-78); Aspartate Amino Transferase 32 U/L (14-36); Bilirubin,Total 0.8 mg/dl (0.2-1.3); Blood Urea Nitrogen 9 mg/dl (7-17); Creatinine Clearance Estimated 149 mL/min (50-200); Estimated Glomerular Filt Rate 128 ml/min (>60); GFR (African American) 154 ML/MIN (>60)
[2022-06-21 07:06] LABS: Albumin Level 2.9 g/dl (3.5-5.0); Albumin/Globulin Ratio 1.4 (1.1-1.8); Alkaline Phosphatase 68 U/L (38-126); Anion Gap 8.8 mEq/L (5-15); Calcium 7.9 mg/dl (8.4-10.2); Carbon Dioxide 26 mmol/L (22.0-30.0); Globulin 2.1 g/dL (1.3-3.2); Glucose 107 mg/dl (74-100)
--- NOTE | 2022-06-21 08:04 | HMH.PHAINT1 ---
Pharmacy Intervention Comments: Reconciled patient's home medications via pharmacy fill history and patient interview.
--- NOTE | 2022-06-21 09:43 | CARE MANAGER ---
Addendum entered by Danay Alvarado RN 06/23/22 12:32: Patient will discharge to [facility] today. Covid swab will be done prior to discharge. Addendum entered by Danay Alvarado RN 06/22/22 11:38: Spoke with N[facility]a this morning, she has not started authorization with insurance and they no longer have a bed today. I reached out to Angy @ [facility], who has now started authorization. Plan is to discharge to [facility] as soon as we can obtain the auth. I will call [facility] later today and inform them that she is here in observation status and try to obtain auth. Addendum entered by Danay Alvarado RN 06/21/22 14:19: Spoke with Nabila @ [facility]. Prior-auth will be started today, with hopes of discharge tomorrow. Nabila states that they have a bed available tomorrow. CM will continue to follow for discharge planning. Original Note: Spoke with patient at bedside to discuss discharge planning. Patient agreeable for [facility], [place] and [facility]. Clinical will be faxed to all 3 once PT/OT notes are in.
--- NOTE | 2022-06-21 10:20 | HMH.PTEV ---
Physical Therapy Evaluation Rehab PT IP Evaluation Start: 06/21/22 08:50 Freq: ONCE Status: Active Protocol: Document 06/21/22 10:06 YUMIKO (Rec: 06/21/22 10:20 YUMIKO [id number]) Subjective/History History History Pt is a 56 y/o female who presented to [facility] ED on 06/20/22 for complaints of progressed generalized weakness. Per history & physical note, she was recently admitted for COPD exacerbation and chronic hypoxic respiratory failure. During previous admission, she was treated for COPD exacerbation, encephalopathy secondary to poly pharmacy and had return of baseline mental status. Over the course of her previous admission, she was noted to be progressively weak and was offered inpatient rehab but patiently ultimately denied and signed out against medical advise. Pt reports when she returned home she fell, denies major injuries or pain from the fall . PMHx of COPD, ALPA, tobacco abuse, HLD, HTN Subjective Subjective Pt lethargic upon initial evaluation. Pt's and daughter were present in the room. Pt reports she lives at home with her and 's grandson. Pt reports she recently started using a walker for ambulation due to progresseive weakness. Pt reports she uses 2L O2 at all times. Pt reports she was independent with dressing and ADLs prior to illness/weakness . Pt's family member reports the pt has not had a bath in a month due to inability to get in/out of the tub at home. I don't want to go to rehab but I know I need to. Rehab PT IP Eval Objective Appearance Patient Behavior Appropria
--- NOTE | 2022-06-21 10:35 | HMH.OTEV ---
OT Inpatient Evaluation Rehab OT IP Evaluation Start: 06/21/22 08:50 Freq: ONCE Status: Active Protocol: Document 06/21/22 09:56 [facility] (Rec: 06/21/22 10:34 [facility] [id number]) Rehab OT IP Assessment Subjective History Pt oriented x 3 on arrival. Pt agreeable to engage in therapy session. Family present and supportive. Pt was admitted on 06/20/22 due to weakness and Hypokalemia. She was recently admitted for COPD exacerbation and chronic hypoxic respiratory failure. During previous admission, she was treated from COPD exacerbation, encephalopathy secondary to poly pharmacy and had return of baseline mental status. Over the course of her previous admission, she was noted to be progressively weak and was offered inpatient rehab but patiently ultimately denied and signed out against medical advice. Prior to being in the hospital , pt lived at home with her . Pt claims she was independent with ADLs such as feeding, dressing, and bathing . However, she was dependent upon family for completion of all IADLs. She did not drive. She used o2 at all times; 2L . Pt did use a walker during ambulation. Pt has a past medical history of: Abnormal Electrocardiogram Chest pain Dyspnea Elevated TSH Hyperlipidemia Subjective I just feel so weak. Objective Patient Orientation Person,Place,Birthday Upper Extremity Gross ROM Min Limitation <25% Shoulder ROM Limitations Muscle Weakness Elbow ROM Limitations Muscle Weakness Wrist Limitations of Range of Motion Muscle Weakness Bed Mobility bed mobility-scooting,bed mobility - supine/sit,bed mobility -
--- NOTE | 2022-06-21 15:33 | PC.NURSE ---
A&OX4. TOLERATING 2LNC WELL. O2 SAT IN LOWER 90S. PT HAS C/O NECK PAIN, TX PER MAY. PT IS X2 ASSIST TO GET UP TO BEDSIDE COMMODE. DOES GET QUITE OUT OF BREATH. FAMILY HAS BEEN AT BEDSIDE. PT HAS SLEPT INTERMITTENTLY. NO OTHER NEEDS OR C/O NOTED THUS FAR. VSS.
[2022-06-22] VITALS (15 sets, daily range): BP systolic 91–116; BP diastolic 60–74; PULSE 78–112; RESP 16–22; TEMP 36.4–36.9; O2SAT 91–98; BMI 27.8
--- NOTE | 2022-06-22 08:15 | EXP.PN ---
Subjective *Date: 06/22/22 *Time: 13:34 Interval history: HR has been elevated 104-112. She's doing better. Sore throat is subsiding. Appetite is improving but she hasn't eaten much. She doesn't remember the last time she had a bowel movement. Exam Data for Last 24 hours Vital signs and Labs for Last 24 Hours: Temp Pulse Resp BP Pulse Ox 98.4 F 112 H 19 116/74 92 L 06/22/22 07:21 06/22/22 07:21 06/22/22 07:21 06/22/22 07:21 06/22/22 07:21 I & O for Last 24 hours: Intake & Output 06/19/22 06/20/22 06/21/22 06/22/22 23:59 23:59 23:59 23:59 Intake Total 1960 / 1960 120 / 120 Output Total 500 / 500 0 / 0 Balance 1460 / 1460 120 / 120 Weight 74.933 kg 74.9 kg 75.795 kg Constitutional Constitutional: no acute distress *Routine HEENT Exam Head: Present normocephalic Eye: Present EOMI and PERRL ENT: Present mucous membranes moist *Routine Neck Exam Neck: Present supple; Absent lymphadenopathy *Routine Respiratory Exam Respiratory: Present CTA bilaterally *Routine Cardiovascular Exam Cardiovascular: Present RRR *Routine Abdominal Exam Abdominal: Present soft and normoactive bowel sounds; Absent tenderness *Routine Extremities Exam Extremities: Absent cyanosis, clubbing or edema *Routine Skin Exam Skin: Present warm; Absent rash *Routine Neurological Exam Neurological: Present alert and oriented X3 Assessment and Plan *Assessment and plan (1) Acute hypokalemia: Status: Acute Category: Medical Code(s): E87.6 - Hypokalemia (2) Weakness: Status: Acute Category: Medical Code(s): R53.1 - Weakness (3) Adult failure to thrive: Status: Acute Category: Medical Code(s): R62.7 - Adult failure to thrive (4) Thrush: Status: Acute Category: Medical Code(s): B37.0 - Candidal stomatitis (5) Chronic bronchitis with COPD (chronic obstructive pulmonary disease): Status: Acute Category: Medical Code(s): J44.9 - Chronic obstructive pulmonary disease, unspecified Plan Ms. Rubin is a 56 year old female with a past medical history of COPD, ALPA, chronic hypoxic respiratory failure on 2 liters NC continuously at baseline, HTN, HLD and hypothyroidism who was admitted on 06/20 with hypokalemia, thrush, generalized weakness and poor oral intake. #constipation #hypokalemia, resolved #thrush #COPD #ALPA #severe protein calorie malnutrition Start Colace and continue PRN Miralax Replacing electrolytes Nystatin for thrush PT/OT HIV and Hep panel are negative/non-reactive. Full code DVT ppx: heparin subcu
--- NOTE | 2022-06-22 15:37 | PC.NURSE ---
A&OX4. TOLERATING 2LNC WELL. HAS REQUESTED ZOFRAN X1, AND HAS C/O GENERALIZED PAIN, TX PER MAR. IN BED MAJORITY OF DAY, X2 ASSIST TO BC. NO OTHER NEEDS OR C/O NOTED AT THIS TIME. AWAITING PLACEMENT. VSS.
[2022-06-23] VITALS (7 sets, daily range): BP systolic 98–108; BP diastolic 47–73; PULSE 53–117; RESP 16–22; TEMP 36.8–36.9; O2SAT 86–97; BMI 28.0
[2022-06-23 06:48] LABS: Basophils # 0.1 K/mm3 (0-0.2); Basophils % 0.9 % (0.1-2.0); Eosinophils # 0.1 K/mm3 (0.0-0.4); Eosinophils % 1.6 % (0.1-12.0); Hematocrit 33.5 % (37.0-47.0); Hemoglobin 10.4 g/dL (12.2-16.2); Lymphocytes # 2.8 K/mm3 (0.7-4.5); Lymphocytes % 32.8 % (10-50); Mean Corpuscular HGB Conc 31.1 g/dL (31.8-35.4); Mean Corpuscular Hemoglobin 27.9 pg (27.0-31.2); Mean Corpuscular Volume 89.5 fl (81-99); Mean Platelet Volume 9.8 fl (7.4-10.4); Monocytes # 0.6 K/mm3 (0.1-1.0); Monocytes % 7.4 % (1.7-9.3); Neutrophils # 4.8 K/mm3 (1.8-7.8); Neutrophils % 57.3 % (37.0-80.0); Platelet Count 309 K/mm3 (142-424); Red Blood Count 3.74 M/mm3 (4.20-5.40); White Blood Count 8.4 K/mm3 (4.8-10.8)
[2022-06-23 07:09] LABS: Chloride 95 mmol/L (98-107); Potassium 4.2 mmoL/L (3.5-5.1); Sodium 130 mmol/L (136-145)
[2022-06-23 07:11] LABS: Blood Urea Nitrogen 12 mg/dl (7-17); Creatinine Clearance Estimated 125 mL/min (50-200); Estimated Glomerular Filt Rate 103 ml/min (>60); GFR (African American) 125 ML/MIN (>60)
[2022-06-23 07:12] LABS: Anion Gap 5.2 mEq/L (5-15); Calcium 7.9 mg/dl (8.4-10.2); Carbon Dioxide 34 mmol/L (22.0-30.0); Glucose 93 mg/dl (74-100); Magnesium 1.6 mg/dl (1.6-2.3)
--- NOTE | 2022-06-23 08:36 | EXP.PN ---
Subjective *Date: 06/23/22 *Time: 10:52 Interval history: SBP has ranged 98-108 HR has ranged 99-110 Spo2 near 90 on 2L NC Na is 130, it was 133 yesterday magnesium is 1.6 Appetite is improving. She ate around half of her breakfast. Less pain in her throat. Hasn't yet had a bowel movement. Exam Data for Last 24 hours Vital signs and Labs for Last 24 Hours: Temp Pulse Resp BP Pulse Ox FiO2 98.3 F 111 H 18 98/73 L 86 L 2 06/23/22 07:37 06/23/22 07:37 06/23/22 07:37 06/23/22 07:37 06/23/22 07:37 06/22/22 15:14 Laboratory Results - last 24 hr 06/23/22 06:21: WBC 8.4, RBC 3.74 L, Hgb 10.4 L, Hct 33.5 L, MCV 89.5, MCH 27.9, MCHC 31.1 L, RDW 16.0, Plt Count 309 D, MPV 9.8, Neut % (Auto) 57.3, Lymph % (Auto) 32.8, [place] % (Auto) 7.4, Eos % (Auto) 1.6, Baso % (Auto) 0.9, Neut # (Auto) 4.8, Lymph # (Auto) 2.8, [place] # (Auto) 0.6, Eos # (Auto) 0.1, Baso # (Auto) 0.1 06/23/22 06:21: Sodium 130 L, Potassium 4.2, Chloride 95 L, Carbon Dioxide 34 H, Anion Gap 5.2, BUN 12 D, Creatinine 0.60, Estimated Creat Clear 125, Estimated GFR 103, Est GFR ( Amer) 125, Glucose 93, Calcium 7.9 L, Magnesium 1.6 D I & O for Last 24 hours: Intake & Output 06/20/22 06/21/22 06/22/22 06/23/22 23:59 23:59 23:59 23:59 Intake Total 1960 / 1960 600 / 600 360 / 360 Output Total 500 / 500 0 / 350 350 / 350 Balance 1460 / 1460 600 / 250 10 / 10 Weight 74.933 kg 74.9 kg 75.795 kg 76.294 kg Constitutional Constitutional: no acute distress *Routine HEENT Exam Head: Present normocephalic Eye: Present EOMI and PERRL ENT: Present mucous membranes moist and oropharynx clear *Routine Neck Exam Neck: Present supple; Absent lymphadenopathy *Routine Respiratory Exam Respiratory: Present CTA bilaterally *Routine Cardiovascular Exam Cardiovascular: Present RRR *Routine Abdominal Exam Abdominal: Present soft and normoactive bowel sounds; Absent tenderness *Routine Extremities Exam Extremities: Absent cyanosis, clubbing or edema *Routine Skin Exam Skin: Present warm; Absent rash *Routine Neurological Exam Neurological: Present alert and oriented X3 Assessment and Plan *Assessment and plan (1) Acute hypokalemia: Status: Acute Category: Medical Code(s): E87.6 - Hypokalemia (2) Weakness: Status: Acute Category: Medical Code(s): R53.1 - Weakness (3) Adult failure to thrive: Status: Acute Category: Medical Code(s): R62.7 - Adult failure to thrive (4) Thrush: Status: Acute Category: Medical Code(s): B37.0 - Candidal stomatitis (5) Chronic bronchitis with COPD (chronic obstructive pulmonary disease): Status: Acute Category: Medical Code(s): J44.9 - Chronic obstructive pulmonary disease, unspecified Plan Ms. Rubin is a 56 year old female with a past medical history of COPD, ALPA, chronic hypoxic respiratory failure on 2 liters NC continuously at baseline, HTN, HLD and hypothyroidism who was admitted on 06/20 with hypokalemia, thrush, generalized weakness and poor oral intake. #constipation #hypomagnesemia #hypokalemia, resolved #thrush, resolving/resolved #COPD #ALPA #severe protein calorie malnutrition Continue Colace and and schedule Miralax daily Replacing electrolytes; will give 2g mg sulfate Nystatin for thrush; plan to discontinue this when she is discharged. Her oropharynx was clear on exam. PT/OT Full code DVT ppx: heparin subcu
[2022-06-23 11:55] LABS: Coronavirus 19, PCR Not Detected (NotDetected); Influenza A, PCR Not Detected (NotDetected); Influenza B, PCR Not Detected (NotDetected)
--- NOTE | 2022-06-23 13:24 | EXP.DC.SUM ---
General Admission date:: 06/20/22 Discharge date: 06/23/22 HPI HPI HPI: This is a 56 year old female with PMHx of COPD, ALPA, tobacco abuse, HLD, HTN who presents to the emergency department with complaints of generalized weakness. She was recently admitted for COPD exacerbation and chronic hypoxic respiratory failure. During previous admission, she was treated from COPD exacerbation, encephalopathy secondary to poly pharmacy and had return of baseline mental status. Over the course of her previous admission, she was noted to be progressively weak and was offered inpatient rehab but patiently ultimately denied and signed out against medical advise. She presents back today with complaints of continued and worsening generalized weakness at home with poor PO intake. She endorses thrush of the mouth secondary to inhaler usage which has made eating difficult. She complains of continued shortness of breath. On my lab review, notable for hypokalmia with K of 2.7, otherwise unremarkable. Due to continued weakness and hypokalemia, Internal Medicine was consulted and evaluated and in agreement for admission further evaluation and management. Hospital Course Hospital Course Hospital Course: Ms. Rubin is a 56 year old female with a past medical history of COPD, ALPA, chronic hypoxic respiratory failure on 2 liters NC continuously at baseline, HTN, HLD and hypothyroidism who was admitted on 06/20 with hypokalemia, thrush, generalized weakness and poor oral intake. #constipation #hypomagnesemia #hypokalemia, resolved #thrush, resolving/resolved #COPD #ALPA #severe protein calorie malnutrition Continue Colace and and PRN Miralax daily potassium was replaced. mg was 1.6 on day of discharge; 2g iv mg sulfate was given. Nystatin for thrush; discontinued nystatin on day of discharge. Her oropharynx was clear on exam. PT/OT Exam Data for Last 24 hours Vital signs and Labs for Last 24 Hours: Temp Pulse Resp BP Pulse Ox FiO2 98.2 F 56 L 16 105/50 L 94 L 2 06/23/22 11:04 06/23/22 11:28 06/23/22 11:04 06/23/22 11:04 06/23/22 11:28 06/22/22 15:14 Laboratory Results - last 24 hr 06/23/22 06:21: WBC 8.4, RBC 3.74 L, Hgb 10.4 L, Hct 33.5 L, MCV 89.5, MCH 27.9, MCHC 31.1 L, RDW 16.0, Plt Count 309 D, MPV 9.8, Neut % (Auto) 57.3, Lymph % (Auto) 32.8, [place] % (Auto) 7.4, Eos % (Auto) 1.6, Baso % (Auto) 0.9, Neut # (Auto) 4.8, Lymph # (Auto) 2.8, [place] # (Auto) 0.6, Eos # (Auto) 0.1, Baso # (Auto) 0.1 06/23/22 06:21: Sodium 130 L, Potassium 4.2, Chloride 95 L, Carbon Dioxide 34 H, Anion Gap 5.2, BUN 12 D, Creatinine 0.60, Estimated Creat Clear 125, Estimated GFR 103, Est GFR ( Amer) 125, Glucose 93, Calcium 7.9 L, Magnesium 1.6 D 06/23/22 11:55: SARS-CoV-2 (PCR) Not detected, Influenza A Untype (PCR) Not detected, Influenza Type B (PCR) Not detected I & O for Last 24 hours: Intake & Output 06/20/22 06/21/22 06/22/22 06/23/22 23:59 23:59 23:59 23:59 Intake Total 1960 / 1960 600 / 600 600 / 600 Output Total 500 / 500 0 / 350 500 / 500 Balance 1460 / 1460 600 / 250 100 / 100 Weight 74.933 kg 74.9 kg 75.795 kg 76.294 kg Constitutional Constitutional: no acute distress *Routine HEENT Exam Head: Present normocephalic Eye: Present EOMI and PERRL ENT: Present mucous membranes moist and oropharynx clear *Routine Neck Exam Neck: Present supple; Absent lymphadenopathy *Routine Respiratory Exam Respiratory: Present CTA bilaterally *Routine Cardiovascular Exam Cardiovascular: Present RRR *Routine Abdominal Exam Abdominal: Present soft and normoactive bowel sounds; Absent tenderness *Routine Extremities Exam Extremities: Absent cyanosis, clubbing or edema *Routine Skin Exam Skin: Present warm; Absent rash *Routine Neurological Exam Neurological: Present alert and oriented X3 Results Data Completed and Pending Labs on day of discharge: Labs from last 24 hours 06/23/22 06/23/22 06/23/22 11:55 06:21 06:21 WBC 8.4 RBC
== END 2022-06-23 14:30 ==
LOC: ER 17:23 → 2ND 19:22
PROVIDERS: Internal Medicine Adolescent Medicine; Admitting Provider Internal Medicine; Emergency Provider Student in an Organized Health Care Education/Training Program; PCP Emergency Medicine; Visit Provider Internal Medicine
DX: E87.6 Hypokalemia (principal); R53.1 Weakness; R62.7 Adult failure to thrive; B37.0 Candidal stomatitis; J44.1 Chronic obstructive pulmonary disease with (acute) exacerbation; I10 Essential (primary) hypertension; Z79.899 Other long term (current) drug therapy; F17.210 Nicotine dependence, cigarettes, uncomplicated; E03.9 Hypothyroidism, unspecified; E43 Unspecified severe protein-calorie malnutrition; Z68.28 Body mass index [BMI] 28.0-28.9, adult; J96.11 Chronic respiratory failure with hypoxia; R06.9 Unspecified abnormalities of breathing; Z20.822 Contact with and (suspected) exposure to COVID-19
CPT/HCPCS: G0378; 36415; 71045; 80048; 80053; 81001; 83735; 83880; 84100; 84484; 85025; 93005; 94640; 94760; 97116; 97162; 97166; 97530; 97535; 99285; C9803; J2405; J3475; U0003; U0005

== ENCOUNTER 2022-08-01 02:11 | Inpatient (IN) | payer MEDICARE, MEDICAID, SELFPAY ==
[2022-08-01] VITALS (34 sets, daily range): BP systolic 82–118; BP diastolic 41–80; PULSE 37–96; RESP 11–22; TEMP 34.7–36.8; O2SAT 89–100; BMI 25.8; BMI 25.0
--- NOTE | 2022-08-01 02:20 | ECG_ITS ---
APPROVED REPORT Exam: Resting ECG HR:82 bpm ECG Measurements Heart Rate 82 AXES ME 169 P 76 QRSd 104 QRS 22 QT 403 T 142 QTc [address] DEVIATION AND MODERATE T-WAVE ABNORMALITY, CONSIDER ANTEROLATERAL ISCHEMIA [-0.1+ mV T-WAVE IN V3-V6] ABNORMAL ECG UNCONFIRMED REPORT Electronically signed by : Leo Nieto MD 08/01/2022 21:15:46
--- NOTE | 2022-08-01 02:20 | XR_ITS ---
PROCEDURE INFORMATION: Exam: XR Chest Exam date and time: 08/01/2022 2:50 AM Age: 57 years old Clinical indication: Shortness of breath; Additional info: Low o2 TECHNIQUE: Imaging protocol: Radiologic exam of the chest. Views: 1 view. COMPARISON: CR XR CHEST PORTABLE 06/20/2022 3:58 PM FINDINGS: Lungs: Right greater than left basilar opacities. Pleural spaces: No pleural effusion. No pneumothorax. Heart/Mediastinum: Normal heart size. Bones/joints: Old healed right clavicular fracture. Cervical fusion hardware is partly visualized. IMPRESSION: Bibasilar opacities could reflect atelectasis or pneumonia. No features of heart failure.
--- NOTE | 2022-08-01 02:22 | CT_ITS ---
PROCEDURE INFORMATION: Exam: CT Cervical Spine Without Contrast Exam date and time: 08/01/2022 2:48 AM Age: 57 years old Clinical indication: Injury or trauma; Fall; Additional info: Fal TECHNIQUE: Imaging protocol: Computed tomography of the cervical spine without contrast. Radiation optimization: All CT scans at this facility use at least one of these dose optimization techniques: automated exposure control; mA and/or kV adjustment per patient size (includes targeted exams where dose is matched to clinical indication); or iterative reconstruction. REPORTING DATA: Count of CT and Cardiac NM exams in prior 12 months: This patient has received 2 known CTs and 0 known cardiac nuclear medicine studies in the 12 months prior to the current study. COMPARISON: CT HEAD/BRAIN WO CON 08/01/2022 2:44 AM FINDINGS: Bones/joints: There has been prior partial vertebrectomy at C5 with anterior plate and screw fixation and interbody bone strut. Upper portion of the interbody graft is incompletely incorporated, and the inferior aspect of the C4 vertebral body is sclerotic. No evidence of hardware failure. There is a chronic compression deformity at C7 causing mild spinal canal stenosis. No acute fracture or malalignment. Auditory system: Abundant cerumen in the right external auditory canal. Pharynx: Normal fossa of Rosenmuller. Normal tonsillar pillars. Larynx: Normal epiglottis. Normal vocal folds. Lungs: Emphysema noted at the lung apices. Soft tissues: Unremarkable. IMPRESSION: 1. No evidence of acute cervical spine fracture or malalignment. Chronic C7 compression deformity noted causing mild spinal canal stenosis. 2. There are changes of prior C4-6 anterior fusion procedure. This superior aspect of the interbody bone strut is not incorporated, and the inferior aspect of the C4 vertebral body is sclerotic. Correlate with any available prior imaging. There is no evidence hardware failure.
--- NOTE | 2022-08-01 02:22 | XR_ITS ---
PROCEDURE INFORMATION: Exam: XR Pelvis Exam date and time: 08/01/2022 2:50 AM Age: 57 years old Clinical indication: Injury or trauma; Fall TECHNIQUE: Imaging protocol: Radiologic exam of the pelvis. Views: 1 or 2 view. COMPARISON: MR LUMBAR SPINE WO CON 06/22/2021 4:17 PM FINDINGS: Bones/joints: No evidence of acute fracture or dislocation. No erosive disease. No significant degenerative change. Soft tissues: Unremarkable. IMPRESSION: No acute bony injury.
--- NOTE | 2022-08-01 02:22 | CT_ITS ---
PROCEDURE INFORMATION: Exam: CT Head Without Contrast Exam date and time: 08/01/2022 2:44 AM Age: 57 years old Clinical indication: Injury or trauma; Fall; Additional info: Fal TECHNIQUE: Imaging protocol: Computed tomography of the head without contrast. Radiation optimization: All CT scans at this facility use at least one of these dose optimization techniques: automated exposure control; mA and/or kV adjustment per patient size (includes targeted exams where dose is matched to clinical indication); or iterative reconstruction. REPORTING DATA: Count of CT and Cardiac NM exams in prior 12 months: This patient has received 2 known CTs and 0 known cardiac nuclear medicine studies in the 12 months prior to the current study. COMPARISON: CT HEAD/BRAIN WO CON 06/17/2022 2:14 PM FINDINGS: Brain: Normal. No hemorrhage. Unremarkable white matter. No mass effect. Cerebral ventricles: No ventriculomegaly. Paranasal sinuses: Visualized sinuses are unremarkable. No fluid levels. Mastoid air cells: Visualized mastoid air cells are well aerated. Bones/joints: Unremarkable. No acute fracture. Soft tissues: Unremarkable. Other findings: Patient motion degrades image quality. IMPRESSION: No evidence of acute intracranial hemorrhage, mass effect, or edema.
[2022-08-01 02:25] LABS: ABG Base Excess 19.9 mmol/L (-2.4-2.3); ABG HCO3 41.9 mmhg (22.0-26.0); ABG Oxygen Saturation 99 % (90-100); ABG PCO2 46.6 mmhg (35.0-45.0); ABG PO2 105.9 mmhg (80-100); ABG TCO2 43.4 mmhg (23-27); Allen's Test Y; Oxygen 100 %; Source Right Radial
--- NOTE | 2022-08-01 02:25 | PC.NURSE ---
IV established by EMS was infiltrated. RN notified. IV removed.
[2022-08-01 02:26] LABS: ABG PH 7.57 mmol/L (7.35-7.45)
[2022-08-01 02:27] LABS: Coronavirus 19, PCR Not Detected (NotDetected); Influenza A, PCR Not Detected (NotDetected); Influenza B, PCR Not Detected (NotDetected)
--- NOTE | 2022-08-01 02:35 | PC.NURSE ---
Pt gone to RAD via stretcher
--- NOTE | 2022-08-01 03:16 | PC.NURSE ---
Upon bringing pt back from CT while on 3lpm NC patient looked very penaloza and was barely responsive. Called for Bella Main RN to come to bedside. After placing pt back on pulse-ox O2 sat was 19% with a good pleth. Pt immediately placed back on 15lpm NRB. O2 sat began to rise immediately. Pt currently 95% 10lpm NRB
[2022-08-01 03:19] LABS: Basophils % 0.2 % (0.1-2.0); Eosinophils # 0.1 K/mm3 (0.0-0.4); Hematocrit 42.8 % (37.0-47.0); Hemoglobin 13.9 g/dL (12.2-16.2); Lymphocytes % 8.1 % (10-50); Mean Corpuscular HGB Conc 32.5 g/dL (31.8-35.4); Mean Corpuscular Hemoglobin 27.8 pg (27.0-31.2); Mean Corpuscular Volume 85.4 fl (81-99); Mean Platelet Volume 7.5 fl (7.4-10.4); Monocytes # 0.5 K/mm3 (0.1-1.0); Monocytes % 4.2 % (1.7-9.3); Neutrophils # 11.2 K/mm3 (1.8-7.8); Neutrophils % 86.5 % (37.0-80.0); Platelet Count 478 K/mm3 (142-424); Red Blood Count 5.01 M/mm3 (4.20-5.40); Red Cell Distribution Width 16.7 % (11.5-17.5); White Blood Count 12.9 K/mm3 (4.8-10.8)
--- NOTE | 2022-08-01 03:24 | PC.NURSE ---
difficulty obtaining IV placement. U/s guided IV was successfully placed after 7x sticks
--- NOTE | 2022-08-01 03:24 | PC.NURSE ---
RT at BS
[2022-08-01 03:27] LABS: Albumin Level 3.7 g/dl (3.5-5.0); Alkaline Phosphatase 140 U/L (38-126); Bilirubin,Total 1.1 mg/dl (0.2-1.3); Blood Urea Nitrogen 63 mg/dl (7-17); Calcium 8.7 mg/dl (8.4-10.2); Creatinine Clearance Estimated 22 mL/min (50-200); Estimated Glomerular Filt Rate 14 ml/min (>60); GFR (African American) 17 ML/MIN (>60); Globulin 3.6 g/dL (1.3-3.2); Glucose 116 mg/dl (74-100); Sodium 128 mmol/L (136-145); Total Protein,Serum 7.3 g/dl (6.3-8.2)
[2022-08-01 03:28] LABS: Lactic Acid 1.2 mmol/L (0.7-2.1)
[2022-08-01 03:29] LABS: MANUAL DIFFERENTIAL MANUAL DIFFERENTIAL (MANUAL DIFF)
[2022-08-01 03:34] LABS: Alanine Aminotransferase 934 U/L (12-78); C-Reactive Protein 55.4 mg/L (0-4)
[2022-08-01 03:41] LABS: Anion Gap 21.2 mEq/L (5-15); Aspartate Amino Transferase 1059 U/L (14-36); Carbon Dioxide 46 mmol/L (22.0-30.0); Troponin I 0.04 ng/ml (0.00-0.034)
[2022-08-01 03:42] LABS: Chloride 63 mmol/L (98-107); Potassium 2.2 mmoL/L (3.5-5.1)
--- NOTE | 2022-08-01 03:45 | PC.NURSE ---
PATIENT WAS NOT MAINTAINING SATS ABOVE NINETY PERCENT ON ANY OTHER MASK EXCEPT NON REBREATHER SO WAS PLACED ON VAPOTHERM AT 40L AND 75 PERCENT OXYGEN.
[2022-08-01 03:46] LABS: Procalcitonin 1.38 ng/mL (0.0-2.0)
[2022-08-01 03:48] LABS: NT Pro Brain Natriuretic Pep. 1850 pg/mL (0-125)
[2022-08-01 03:49] LABS: Erythrocyte Sedimentation Rate 15 mm/hr (0-30)
--- NOTE | 2022-08-01 03:56 | PC.NURSE ---
pt had an episode of liquid stool. diarrhea sample collected and submitted to lab. Bolanos cath placed to pt after pt was cleaned and partial bed bath given
[2022-08-01 03:57] LABS: Magnesium 2.7 mg/dl (1.6-2.3)
--- NOTE | 2022-08-01 03:57 | PC.NURSE ---
notified dilcia of critical chloride 63 and potassium 2.2
--- NOTE | 2022-08-01 04:01 | CT_ITS ---
PROCEDURE INFORMATION: Exam: CT Abdomen And Pelvis Without Contrast Exam date and time: 08/01/2022 4:13 AM Age: 57 years old Clinical indication: Other: Elevated liver enzymes TECHNIQUE: Imaging protocol: Computed tomography of the abdomen and pelvis without contrast. Radiation optimization: All CT scans at this facility use at least one of these dose optimization techniques: automated exposure control; mA and/or kV adjustment per patient size (includes targeted exams where dose is matched to clinical indication); or iterative reconstruction. REPORTING DATA: Count of CT and Cardiac NM exams in prior 12 months: This patient has received 2 known CTs and 0 known cardiac nuclear medicine studies in the 12 months prior to the current study. COMPARISON: CR XR PELVIS 1-2V 08/01/2022 2:50 AM FINDINGS: Tubes, catheters and devices: Catheterized urinary bladder. Lungs: There is bilateral lower lobe airspace disease. Moderate centrilobular emphysema. Liver: Normal liver configuration. Gallbladder and bile ducts: Mildly distended gallbladder without pericholecystic inflammatory change. No high density stones. No biliary tree dilation. Pancreas: Normal. No ductal dilation. Spleen: Normal. No splenomegaly. Adrenal glands: Normal configuration. Kidneys and ureters: No evidence of obstruction. No visible inflammation. Stomach and bowel: Unremarkable. No obstruction. No mural thickening. Appendix: Normal appendix is confirmed. Intraperitoneal space: No free air. No significant fluid collection. Vasculature: Flattened inferior vena cava suggests depleted intravascular volume. Mild aortoiliac calcific atherosclerosis without aneurysm. Lymph nodes: No enlarged lymph nodes. Urinary bladder: Catheterized. Reproductive: Physiologic appearance for age. Bones/joints: No fracture or destructive lesion. Soft tissues: Unremarkable. IMPRESSION: 1. No structural abnormality identified to explain patient's abnormal liver function tests. In particular, there is no evidence of biliary tree dilation or cirrhosis. No visible hepatic lesions on this noncontrast exam. 2. Flattened inferior vena cava suggest depleted intravascular volume. 3. Bilateral lower lobe airspace disease, right worse than left. Findings are concerning for pneumonia superimposed upon emphysema. No parapneumonic effusions.
--- NOTE | 2022-08-01 04:10 | PC.NURSE ---
PATIENTS SATS IN MID NINETIES ON 40L AND 50 PERCENT OXYGEN
[2022-08-01 04:11] LABS: Lymphocytes % 8 % (10-50); Monocytes % 2 % (2-9); Neutrophils % 90 % (42-76); Platelet Estimate Slight Increase; Total Cells Counted 100
[2022-08-01 04:12] LABS: RBC Morphology Normal
--- NOTE | 2022-08-01 04:12 | HMH.EDWEAK ---
Discharge Plan Disposition Patient Disposition: Admitted As Inpatient Chief Complaint: Weakness Clinical Impressions Clinical Impression: HCAP (healthcare-associated pneumonia), Respiratory failure with hypoxia and hypercapnia, Severe sepsis with acute organ dysfunction, Acute hypokalemia, TOMMIE (acute kidney injury), Elevated liver enzymes Discharge ED Provider: Flaco (ED)Chauncey HPI General Chief complaint: Weakness Stated complaint: hypotenison Time Seen by Provider: 08/01/22 04:00 Mode of Arrival: EMS Source of Information: EMS and Medical Record Limitations: No Limitations Description of Symptoms (Recalled from ER Triage Doc. by RN): longterm reports pt had an unwitnessed fall on monday. pt was then placed on neuor checks. nursing performs check @ 1am and pt O2 sat 85 on 2L and bp 91/50. History of Present Illness HPI Narrative: she fell at [facility] and tonight dec o2 sat and bp and sent for eval -hx of copd- pt unable to give hx MD Complaint: generalized weakness Onset (ago): hour(s) Duration: constant Severity: severe Related Data Home Medications Medication Instructions Recorded Confirmed sumatriptan succinate 100 mg tablet 100 mg PO DAILYP PRN Migraine 06/17/22 08/01/22 Headache bumetanide 1 mg tablet 1 mg PO DAILY Fluid 08/01/22 08/01/22 docusate sodium 100 mg capsule 100 mg PO BID . 08/01/22 08/01/22 Previous Rx's Medication Instructions Recorded albuterol sulfate 90 mcg/actuation 1 puff inhalation QIDP PRN 06/23/22 aerosol inhaler Shortness Of Breath #90 grams amitriptyline 10 mg tablet 40 mg PO HS Depression #30 tabs 06/23/22 atorvastatin 10 mg tablet 10 mg PO DAILY Cholesterol #30 tabs 06/23/22 budesonide-formoterol HFA 80 2 puff inhalation BID COPD #1 ea 06/23/22 mcg-4.5 mcg/actuation aerosol inhaler (Symbicort) gabapentin 800 mg tablet 800 mg PO TID Pain #9 tabs 06/23/22 hydrocodone 10 mg-acetaminophen 1 tab PO Q8HP PRN moderate to 06/23/22 325 mg tablet severe Back Pain #9 tabs levothyroxine 88 mcg tablet 88 mcg PO DAILY hypothyroid #30 06/23/22 tabs meloxicam 15 mg tablet 15 mg PO DAILY Arthritis #30 tabs 06/23/22 metoprolol succinate 25 mg 25 mg PO DAILY High blood pressure 06/23/22 tablet,extended release 24 hr #60 tabs ondansetron HCl 4 mg tablet 4 mg PO Q8HP PRN Nausea And 06/23/22 Vomiting #90 tabs polyethylene glycol 3350 17 gram 17 g PO DAILYP PRN Constipation 06/23/22 oral powder packet (Miralax) #30 ea promethazine 25 mg tablet 25 mg PO Q8HP PRN Nausea And 06/23/22 Vomiting #9 tabs Allergies Allergy/AdvReac Type Severity Reaction Status Date / Time Penicillins Allergy Intermediate Hives Verified 06/13/22 11:25 [facility] Disclaimer: The information contained in this section may have been updated after the patient was seen, as this information can be updated by other users. Medical History Abnormal Electrocardiogram Chest pain Dyspnea Elevated TSH Hyperlipidemia (~01/02/18) Family History (Updated 06/17/22 @ 18:21 by Jaylene Brody RN) Other No significant family history Social History (Updated 06/17/22 @ 18:22 by Jaylene Brody RN) Smoking Status: Unknown if ever smoked second hand exposure: Yes alcohol intake: never substance use type: denies use current occupational status: other Travel in the last 8 weeks: None household members: significant other housing: house caffeine: No ROS Obtained: Yes unobtainable due to mental status Physical Exam General General appearance: obtunded Head Head exam: normocephalic Eye Eye exam: Present PERRL and EOMI; Absent scleral icterus ENT ENT exam: Present mucous membranes dry Neck Neck exam: Present trachea midline Respiratory Respiratory exam: Present other (dec bs bilat ); Absent respiratory distress Cardiovascular Cardiovascular exam: Present regular rate, systolic murmur and +S4 Abdominal Exam Abdominal exa
--- NOTE | 2022-08-01 04:21 | PC.NURSE ---
Pt advised she was going to go home and we could call her with any new information
[2022-08-01 04:33] LABS: Adenovirus F 40/41, stool Not Detected (NotDetected); Astrovirus Not Detected (NotDetected); Campylobacter Not Detected (NotDetected); Clostridium Difficile A/B, PCR Not Detected (NotDetected); Cryptosporidium Not Detected (NotDetected); Cyclospora Cayetanesis Not Detected (NotDetected); Entamoeba histolytica Not Detected (NotDetected); Enteroaggregative E coli Not Detected (NotDetected); Enteropathogenic E coli Not Detected (NotDetected); Enterotoxigenic E coli Not Detected (NotDetected); Giardia lamblia Not Detected (NotDetected); Microscopic, Urine URINE MICROSCOPIC (MICROSCOPIC); Norovirus Not Detected (NotDetected); Plesimonas Shigalloides, PCR Not Detected (NotDetected); Rotavirus A Not Detected (NotDetected); Salmonella, PCR Not Detected (NotDetected); Sapovirus Not Detected (NotDetected); Shiga-like toxin E coli Not Detected (NotDetected); Shigella Enterovasive E coli Not Detected (NotDetected); Vibrio Cholerae Not Detected (NotDetected); Vibrio, PCR Not Detected (NotDetected); Yersinia Entercolitica, PCR Not Detected (NotDetected)
[2022-08-01 04:42] LABS: Appearance,Urine TURBID (Clear); Blood, Urine Negative (Negative); Color,Urine YELLOW (Yellow); Glucose,Urine (UA) Negative (Negative); Ketones,Urine TRACE (Negative); Leukocyte Esterase,Urine 1+ (Negative); Nitrate,Urine Negative (Negative); Protein,Urine 1+ (Negative); Specific Gravity, Urine 1.015 (1.005-1.030)
[2022-08-01 04:44] LABS: Bilirubin,Urine 2+ (Negative)
--- NOTE | 2022-08-01 04:51 | PC.NURSE ---
called lab to repeat an ABG d/t decrease mental status per MD
[2022-08-01 04:56] LABS: Amorphous Sediment,Urine Trace /lpf; Bacteria,Urine 4+ /lpf; RBC,Urine Occasional #/hpf (0-3); Squamous Epithelial Cell,Urine Occasional #/hpf (0-5)
[2022-08-01 05:06] LABS: Ammonia 12 umol/L (9-30)
[2022-08-01 05:14] LABS: ABG Base Excess 13.6 mmol/L (-2.4-2.3); ABG HCO3 34.9 mmhg (22.0-26.0); ABG Oxygen Saturation 100 % (90-100); ABG PCO2 34.7 mmhg (35.0-45.0); ABG PO2 106.1 mmhg (80-100); ABG TCO2 35.9 mmhg (23-27); Allen's Test Acceptable; Source Left Radial
[2022-08-01 05:15] LABS: ABG PH 7.62 mmol/L (7.35-7.45)
--- NOTE | 2022-08-01 05:20 | PC.NURSE ---
notified dilcia ph 7.62
--- NOTE | 2022-08-01 06:10 | PC.NURSE ---
Nahomy Murrell called for an update, this was given.
--- NOTE | 2022-08-01 06:23 | PC.NURSE ---
rechecked rectal temp and it was 94.4. Bear hugger was replaced and adjusted to allow full inflation. Warm blankets placed to legs and surrounding head. Temperature increased to room to 80 degrees. Warm fluids started for maintenance fluids.
--- NOTE | 2022-08-01 07:30 | PC.NURSE ---
notified care management of admission, spoke with alicia
--- NOTE | 2022-08-01 07:40 | PC.NURSE ---
spoke to enrrique from pharmacy. cefepime 1 gm unavailable in ED [facility]. pharmacy is going to dose vancomycin, and mix cefepime and send both down together.
--- NOTE | 2022-08-01 07:41 | EXP.PHA.CONS ---
Pharmacy Consult Date: 08/01/22 Time: 07:43 Referring provider: DR BHATTI Reason for Consult:: VANCOMYCIN DOSING CONSULT Allergies Allergy/AdvReac Type Severity Reaction Status Date / Time Penicillins Allergy Intermediate Hives Verified 06/13/22 11:25 Home Medications Medication Instructions Recorded Confirmed Type sumatriptan succinate 100 mg tablet 100 mg PO DAILYP PRN Migraine 06/17/22 08/01/22 History Headache albuterol sulfate 90 mcg/actuation 1 puff inhalation QIDP PRN 06/23/22 08/01/22 Rx aerosol inhaler Shortness Of Breath #90 grams amitriptyline 10 mg tablet 40 mg PO HS Depression #30 tabs 06/23/22 08/01/22 Rx atorvastatin 10 mg tablet 10 mg PO DAILY Cholesterol #30 tabs 06/23/22 08/01/22 Rx budesonide-formoterol HFA 80 2 puff inhalation BID COPD #1 ea 06/23/22 08/01/22 Rx mcg-4.5 mcg/actuation aerosol inhaler (Symbicort) gabapentin 800 mg tablet 800 mg PO TID Pain #9 tabs 06/23/22 08/01/22 Rx hydrocodone 10 mg-acetaminophen 1 tab PO Q8HP PRN moderate to 06/23/22 08/01/22 Rx 325 mg tablet severe Back Pain #9 tabs levothyroxine 88 mcg tablet 88 mcg PO DAILY hypothyroid #30 06/23/22 08/01/22 Rx tabs meloxicam 15 mg tablet 15 mg PO DAILY Arthritis #30 tabs 06/23/22 08/01/22 Rx metoprolol succinate 25 mg 25 mg PO DAILY High blood pressure 06/23/22 08/01/22 Rx tablet,extended release 24 hr #60 tabs ondansetron HCl 4 mg tablet 4 mg PO Q8HP PRN Nausea And 06/23/22 08/01/22 Rx Vomiting #90 tabs polyethylene glycol 3350 17 gram 17 g PO DAILYP PRN Constipation 06/23/22 08/01/22 Rx oral powder packet (Miralax) #30 ea promethazine 25 mg tablet 25 mg PO Q8HP PRN Nausea And 06/23/22 08/01/22 Rx Vomiting #9 tabs bumetanide 1 mg tablet 1 mg PO DAILY Fluid 05/15/23 05/15/23 History docusate sodium 100 mg capsule 100 mg PO BID . 08/01/22 08/01/22 History New Prescriptions to Start Prescriptions: Height: 1.68 m Weight: 72.575 kg Laboratory Results:: Laboratory Results - last 24 hr 08/01/22 02:10: WBC 12.9 H, RBC 5.01, Hgb 13.9, Hct 42.8, MCV 85.4, MCH 27.8, MCHC 32.5, RDW 16.7, Plt Count 478 H, MPV 7.5, Neut % (Auto) 86.5 H, Lymph % (Auto) 8.1 L, [place] % (Auto) 4.2, Eos % (Auto) 1.0, Baso % (Auto) 0.2, Neut # (Auto) 11.2 H, Lymph # (Auto) 1.0, [place] # (Auto) 0.5, Eos # (Auto) 0.1, Baso # (Auto) 0.0, Total Counted 100, Neutrophils % (Manual) 90 H, Lymphocytes % (Manual) 8 L, Monocytes % (Manual) 2, Platelet Estimate Slight increase, RBC Morphology Normal, ESR 15 08/01/22 02:10: Sodium 128 L, Potassium 2.2 L*, Chloride 63 L, Carbon Dioxide 46 H*, Anion Gap 21.2 H, BUN 63 H, Creatinine 3.30 H, Estimated Creat Clear 22, Estimated GFR 14 L*, Est GFR ( Amer) 17 L*, Glucose 116 H, Calcium 8.7, Total Bilirubin 1.1, AST 1059 H*, ALT 934 H*, Alkaline Phosphatase 140 H, Troponin I 0.04 H, C-Reactive Protein 55.4 H, Total Protein 7.3 D, Albumin 3.7, Globulin 3.6 H, Albumin/Globulin Ratio 1.0 L, Procalcitonin 1.38 08/01/22 02:10: Lactate 1.2 08/01/22 02:10: NT-Pro-B Natriuret Pep 1850 H 08/01/22 02:10: Magnesium 2.7 H 08/01/22 02:10: Ammonia 12 08/01/22 02:19: SARS-CoV-2 (PCR) Not detected, Influenza A Untype (PCR) Not detected, Influenza Type B (PCR) Not detected 08/01/22 02:20: Specimen Source Right radial, O2 % 100, ABG pH 7.57 H*, ABG pCO2 46.6 H, ABG pO2 105.9 H, ABG HCO3 41.9 H, ABG Total CO2 43.4 H, ABG O2 Saturation 99, ABG Base Excess 19.9 H, Gómez Test Y 08/01/22 03:50: Stl Aeromonas (PCR) Not detected, Stl C. cayetanensis PCR Not detected, Stool Rotavirus (PCR) Not detected, Stl Adenov F 40/41 PCR Not detected, Stool Astrovirus (PCR) Not detected, Stool Campylobacter PCR Not detected, Stl C.difficile Tox PCR Not detected, Stool Cryptosporidium PCR Not detected, Stl E.coli Shiga Tox PCR Not detected, Stool E coli O157 PCR Not detected, Stl Enterotoxigenic E PCR Not detected, Stool EPEC (PCR) Not detected, Stool EAEC (PCR) Not detected, Stl E. histolytica PCR Not detected, Stool Giardia Lamblia PCR Not detected, St
[2022-08-01 07:49] LABS: Troponin I 0.03 ng/ml (0.00-0.034)
--- NOTE | 2022-08-01 08:00 | PC.NURSE ---
pt reassessment done. rectal temp 95.4. pt did have small bm, pt changed and clean pads placed. jain cath patent, 150cc dark, cloudy urine emptied. pt repositioned and call light in reach.
--- NOTE | 2022-08-01 08:03 | PC.NURSE ---
called to give report, nurse in another patients room providing care, will return call for report.
--- NOTE | 2022-08-01 08:24 | PC.NURSE ---
gave report to Kathy Oseguera on second floor
--- NOTE | 2022-08-01 08:59 | PC.NURSE ---
patient arrived to floor by stretcher from ED
--- NOTE | 2022-08-01 10:11 | EXP.HP ---
History of Present Illness *Admission Date: 08/01/22 *Reason for visit:: Weakness, respiratory distress *History of present illness: Ms. Rubin is a 57-year-old female with history of adult failure to thrive, COPD, hypertension. She has been at a [facility] for rehab due to failure to thrive. She has had several falls. Reportedly had an unwitnessed fall on Monday and was placed on neurochecks. On evaluation this morning, her oxygen saturations were 85% on 2 L and she was hypotensive. She was sent to the ER for further evaluation. Patient frankly encephalopathic on admission and unable to give any history. History obtained from family at bedside. They states she has been having more difficulty over the past several days to week at her [facility]. They have expressed concern that something is wrong aside from her baseline health conditions. On arrival to the ER, patient found to be hypoxic. Met criteria for severe sepsis with endorgan dysfunction and significant electrolyte disturbances. Hypotensive. Responded to IV fluids. Has maintain MAP greater than 65 with fluid resuscitation. Started on broad-spectrum antibiotics. Admitted to medicine for further management. On arrival to the floor, patient complaining of leg pain. She is hypothermic and on a Lo hugger. Responds to questions. Gives simple yes and no answers. Alert to self but disoriented to place and time. [facility] Disclaimer: The information contained in this section may have been updated after the patient was seen, as this information can be updated by other users. Medical History (Updated 08/01/22 @ 14:10 by Azar Barrera MD) Abnormal Electrocardiogram Acute respiratory failure with hypoxia Chest pain COPD exacerbation Dyspnea Elevated TSH Hyperlipidemia (~01/02/18) Family History No significant family history Social History Smoking Status: Unknown if ever smoked second hand exposure: Yes alcohol intake: never substance use type: denies use current occupational status: other Travel in the last 8 weeks: None household members: significant other housing: house caffeine: No Review of Systems Review of Systems Review of systems (narrative): 14 point review of systems performed, pertinent positives and negatives as per HPI Meds Home Medications and Allergies Home Medications Medication Instructions Recorded Confirmed Type sumatriptan succinate 100 mg tablet 100 mg PO DAILYP PRN Migraine 06/17/22 08/01/22 History Headache albuterol sulfate 90 mcg/actuation 1 puff inhalation QIDP PRN 06/23/22 08/01/22 Rx aerosol inhaler Shortness Of Breath #90 grams amitriptyline 10 mg tablet 40 mg PO HS Depression #30 tabs 06/23/22 08/01/22 Rx budesonide-formoterol HFA 80 2 puff inhalation BID COPD #1 ea 06/23/22 08/01/22 Rx mcg-4.5 mcg/actuation aerosol inhaler (Symbicort) gabapentin 800 mg tablet 800 mg PO TID Pain #9 tabs 06/23/22 08/01/22 Rx hydrocodone 10 mg-acetaminophen 1 tab PO Q8HP PRN moderate to 06/23/22 08/01/22 Rx 325 mg tablet severe Back Pain #9 tabs levothyroxine 88 mcg tablet 88 mcg PO DAILY hypothyroid #30 06/23/22 08/01/22 Rx tabs meloxicam 15 mg tablet 15 mg PO DAILY Arthritis #30 tabs 06/23/22 08/01/22 Rx metoprolol succinate 25 mg 25 mg PO DAILY High blood pressure 06/23/22 08/01/22 Rx tablet,extended release 24 hr #60 tabs ondansetron HCl 4 mg tablet 4 mg PO Q8HP PRN Nausea And 06/23/22 08/01/22 Rx Vomiting #90 tabs polyethylene glycol 3350 17 gram 17 g PO DAILYP PRN Constipation 06/23/22 08/01/22 Rx oral powder packet (Miralax) #30 ea promethazine 25 mg tablet 25 mg PO Q8HP PRN Nausea And 06/23/22 08/01/22 Rx Vomiting #9 tabs albuterol sulfate 2.5 mg/3 mL 2.5 mg inhalation Q8HP PRN COPD 08/01/22 08/01/22 History (0.083 %) solution for nebulization EXACERBATION atorvastatin 10 mg tabl
[2022-08-01 10:35] LABS: Troponin I 0.03 ng/ml (0.00-0.034)
--- NOTE | 2022-08-01 10:47 | SW/DCPLANNER ---
Addendum entered by Danay Alvarado RN 08/05/22 14:56: Spoke with Travis at [facility], services will be provided by [facility]. Addendum entered by Tracey Cameron 08/05/22 11:11: Patient information/order has been faxed to Travis guadarrama/ [facility]. Addendum entered by [facility] 08/05/22 10:06: Patient has decided to discharge home w/ her mother and son. I did call and speak with patient's mother regarding the level of care patient would require at home and that our recommendation is to discharge to SNF level of care. Patient's mother and son are agreeable and voice they understand the level of care that patient would require at home. Patient will require home health services and DME (hospital bed, BSC, wheelchair) at home and already has home O2 w/ [facility] that son stated that he could pharmacy picking tech and take to mother's house. Patient, son and mother are agreeable with this plan. Myself and Dr Cosby has advised the safest plan would be to discharge to SNF and not home. Patient's mother (Kenia) [address] [facility] [id number] Addendum entered by [facility] 08/05/22 07:07: Malissa has requested updated patient information per insurance: updates have been faxed. Addendum entered by [facility] 08/04/22 11:25: Per Malissa guadarrama/ [facility] precert is still pending for this patient. Addendum entered by [facility] 08/04/22 09:39: I did speak with patient's daughter this AM that had some concerns regarding placement at [facility]. I explained to patient's daughter that [facility], [facility], [facility] and [facility] have denied patient at this time. Daughter concurs with plan of discharging to [facility] once precert is completed. Addendum entered by [facility] 08/03/22 15:03: Malissa guadarrama/ [facility] is able to accept this patient. Patient's family agrees with this plan. Malissa will start a precert today. Addendum entered by [facility] 08/03/22 13:00: Patient information has been faxed to [facility]. Addendum entered by [facility] 08/03/22 12:29: Sarita guadarrama/ [facility] stated that she is not able to meet patient's needs. I am currently waiting for a call back from patient's family regarding other facilities. They prefer a facility Dr Sam goes to however [facility] and [facility] have denied this patient and [facility] does not have any beds at this time. Addendum entered by [facility] 08/03/22 09:15: Patient is not a candidate for [facility] per Nabila. Addendum entered by [facility] 08/03/22 08:30: Patient information has also been faxed to Sarita guadarrama/ [facility]. Addendum entered by [facility] 08/02/22 13:14: Nabila guadarrama/ [facility] is reviewing information for their skilled unit. Addendum entered by [facility] 08/02/22 10:37: Patient information has been faxed to [facility] upon family request. Addendum entered by [facility] 08/02/22 10:24: [facility] not able to accept this patient. I will follow up with patient and her family. Addendum entered by [facility] 08/01/22 13:24: Patient/family are interested in discharging to [facility] or [facility] at time of discharge. I will fax patient information to [facility] today. Discharge date is unknown at this time. Original Note: Patient admitted from [facility] level of care. Patient has expressed to staff that she will not be returning to [facility] at time of discharge. Once patient/family are present in patient's room I will speak with patient about plans once medically stable for discharge. Discharge date is unknown at this time.
--- NOTE | 2022-08-01 12:09 | US_ITS ---
FINAL REPORT CLINICAL HISTORY: elevated lfts-- done portable due to pt condition FINDINGS: Sonographic images of the right upper quadrant were obtained. The pancreas is partially obscured. There is a 12 mm cyst in the left hepatic lobe. Liver is fatty infiltrated. There is sludge seen in the gallbladder. There is no evidence of biliary ductal dilatation.The common duct measures 2 mm. Limited images of the right kidney are unremarkable. IMPRESSION: Fatty infiltration of the liver with 12 mm left hepatic lobe cyst. Sludge in the gallbladder without wall thickening. Normal common duct. Reviewed, Interpreted and Dictated by Reg Cardona III, MD Transcribed by Modesta Roth Authenticated and [facility]
--- NOTE | 2022-08-01 12:14 | PC.NURSE ---
Dr. Cosby at bedside.
[2022-08-01 13:07] LABS: Basophils % 0.2 % (0.1-2.0); Eosinophils # 0.1 K/mm3 (0.0-0.4); Monocytes # 0.7 K/mm3 (0.1-1.0)
[2022-08-01 13:14] LABS: Chloride 83 mmol/L (98-107)
[2022-08-01 13:15] LABS: Sodium 132 mmol/L (136-145)
[2022-08-01 13:17] LABS: Alanine Aminotransferase 606 U/L (12-78); Albumin Level 2.9 g/dl (3.5-5.0); Alkaline Phosphatase 87 U/L (38-126); Anion Gap 13.6 mEq/L (5-15); Aspartate Amino Transferase 556 U/L (14-36); Bilirubin,Total 0.7 mg/dl (0.2-1.3); Blood Urea Nitrogen 55 mg/dl (7-17); Calcium 7.5 mg/dl (8.4-10.2); Carbon Dioxide 38 mmol/L (22.0-30.0); Creatinine Clearance Estimated 31 mL/min (50-200); Estimated Glomerular Filt Rate 23 ml/min (>60); GFR (African American) 28 ML/MIN (>60); Globulin 2.8 g/dL (1.3-3.2); Glucose 82 mg/dl (74-100); Total Protein,Serum 5.7 g/dl (6.3-8.2)
[2022-08-01 13:18] LABS: Magnesium 2.3 mg/dl (1.6-2.3)
[2022-08-01 13:27] LABS: Thyroid Stimulating Hormone 2.39 uIU/mL (0.465-4.68)
[2022-08-01 13:27] LABS: Potassium 2.6 mmoL/L (3.5-5.1)
--- NOTE | 2022-08-01 13:51 | DIET.NUTRFU ---
RD consulted in error today upon admit, reviewed with nursing. She is currently NPO, her renal and liver enzymes are elevated. She is currently receiving IVF and KCL. She is from [facility], follows a regular diet with thin liquids. Patient was receiving speech therapy since 07/26. She does have dz of failure to thrive, will re-eval when oral diet is appropriate.
[2022-08-01 13:58] LABS: Lactic Acid 0.8 mmol/L (0.7-2.1)
--- NOTE | 2022-08-01 14:00 | EXP.PULM.CON ---
History of Present Illness History of present illness: Ms. Rubin is a 57-year-old male greater than 18-[id number] smoking and recent hospital admissions for hypoxic respiratory failure and generalized weakness presented to the hospital with worsening weakness and mentation and upon admission patient needing increasing oxygen requirements and pulmonary was called for further evaluation [facility] Disclaimer: The information contained in this section may have been updated after the patient was seen, as this information can be updated by other users. Medical History (Updated 08/01/22 @ 14:10 by Azar Barrera MD) Abnormal Electrocardiogram Acute respiratory failure with hypoxia Chest pain COPD exacerbation Dyspnea Elevated TSH Hyperlipidemia (~01/02/18) Family History (Updated 06/17/22 @ 18:21 by Jaylene Brody, RN) Other No significant family history Social History (Updated 06/17/22 @ 18:22 by Jaylene Brody, KAOVN) Smoking Status: Unknown if ever smoked second hand exposure: Yes alcohol intake: never substance use type: denies use current occupational status: other Travel in the last 8 weeks: None household members: significant other housing: house caffeine: No Review of Systems Review of Systems Review of systems:: unable to obtain Review of systems (narrative): Patient altered not responding appropriately to verbal questions. She has been asking for ice throughout my conversation. Pulmonology Exam Inpatient Vital signs and Labs for Last 24 Hours: Temp Pulse Resp BP Pulse Ox FiO2 96.7 F L 88 16 103/51 L 91 L 40 08/01/22 12:00 08/01/22 10:57 08/01/22 09:19 08/01/22 09:22 08/01/22 12:01 08/01/22 12:01 Laboratory Results - last 24 hr 08/01/22 02:10: WBC 12.9 H, RBC 5.01, Hgb 13.9, Hct 42.8, MCV 85.4, MCH 27.8, MCHC 32.5, RDW 16.7, Plt Count 478 H, MPV 7.5, Neut % (Auto) 86.5 H, Lymph % (Auto) 8.1 L, [place] % (Auto) 4.2, Eos % (Auto) 1.0, Baso % (Auto) 0.2, Neut # (Auto) 11.2 H, Lymph # (Auto) 1.0, [place] # (Auto) 0.5, Eos # (Auto) 0.1, Baso # (Auto) 0.0, Total Counted 100, Neutrophils % (Manual) 90 H, Lymphocytes % (Manual) 8 L, Monocytes % (Manual) 2, Platelet Estimate Slight increase, RBC Morphology Normal, ESR 15 08/01/22 02:10: Sodium 128 L, Potassium 2.2 L*, Chloride 63 L, Carbon Dioxide 46 H*, Anion Gap 21.2 H, BUN 63 H, Creatinine 3.30 H, Estimated Creat Clear 22, Estimated GFR 14 L*, Est GFR ( Amer) 17 L*, Glucose 116 H, Calcium 8.7, Total Bilirubin 1.1, AST 1059 H*, ALT 934 H*, Alkaline Phosphatase 140 H, Troponin I 0.04 H, C-Reactive Protein 55.4 H, Total Protein 7.3 D, Albumin 3.7, Globulin 3.6 H, Albumin/Globulin Ratio 1.0 L, Procalcitonin 1.38 08/01/22 02:10: Lactate 1.2 08/01/22 02:10: NT-Pro-B Natriuret Pep 1850 H 08/01/22 02:10: Magnesium 2.7 H 08/01/22 02:10: Ammonia 12 08/01/22 02:10: TSH 2.39 08/01/22 02:19: SARS-CoV-2 (PCR) Not detected, Influenza A Untype (PCR) Not detected, Influenza Type B (PCR) Not detected 08/01/22 02:20: Specimen Source Right radial, O2 % 100, ABG pH 7.57 H*, ABG pCO2 46.6 H, ABG pO2 105.9 H, ABG HCO3 41.9 H, ABG Total CO2 43.4 H, ABG O2 Saturation 99, ABG Base Excess 19.9 H, Gómez Test Y 08/01/22 03:50: Stl Aeromonas (PCR) Not detected, Stl C. cayetanensis PCR Not detected, Stool Rotavirus (PCR) Not detected, Stl Adenov F 40/41 PCR Not detected, Stool Astrovirus (PCR) Not detected, Stool Campylobacter PCR Not detected, Stl C.difficile Tox PCR Not detected, Stool Cryptosporidium PCR Not detected, Stl E.coli Shiga Tox PCR Not detected, Stool E coli O157 PCR Not detected, Stl Enterotoxigenic E PCR Not detected, Stool EPEC (PCR) Not detected, Stool EAEC (PCR) Not detected, Stl E. histolytica PCR Not detected, Stool Giardia Lamblia PCR Not detected, Stool Salmonella PCR Not detected, Stool Sapovirus (PCR) Not detected, Stl P. shigelloides PCR Not detected, Stl Shigella/EIEC PCR Not detected, St Y.enterocolitica PCR Not detected, Stool Vibrio (PCR) Not detected, S
[2022-08-01 14:25] LABS: Eosinophils % 0.6 % (0.1-12.0); Hematocrit 37.2 % (37.0-47.0); Lymphocytes # 1.1 K/mm3 (0.7-4.5); Lymphocytes % 9.4 % (10-50); Mean Corpuscular HGB Conc 32.3 g/dL (31.8-35.4); Mean Corpuscular Hemoglobin 27.9 pg (27.0-31.2); Mean Corpuscular Volume 86.4 fl (81-99); Mean Platelet Volume 8.8 fl (7.4-10.4); Monocytes % 6.2 % (1.7-9.3); Neutrophils # 9.8 K/mm3 (1.8-7.8); Neutrophils % 83.6 % (37.0-80.0); Platelet Count 416 K/mm3 (142-424); Red Blood Count 4.31 M/mm3 (4.20-5.40); Red Cell Distribution Width 16.8 % (11.5-17.5); White Blood Count 11.8 K/mm3 (4.8-10.8)
[2022-08-01 15:52] LABS: INR 1.06 (0.9-1.1); Prothrombin Time 11.4 seconds (10.1-12.5)
[2022-08-01 22:32] LABS: Alanine Aminotransferase 452 U/L (12-78); Albumin Level 2.7 g/dl (3.5-5.0); Albumin/Globulin Ratio 1.1 (1.1-1.8); Alkaline Phosphatase 82 U/L (38-126); Anion Gap 16.5 mEq/L (5-15); Aspartate Amino Transferase 334 U/L (14-36); Bilirubin,Total 0.7 mg/dl (0.2-1.3); Blood Urea Nitrogen 47 mg/dl (7-17); Calcium 7.3 mg/dl (8.4-10.2); Carbon Dioxide 32 mmol/L (22.0-30.0); Chloride 87 mmol/L (98-107); Creatinine Clearance Estimated 41 mL/min (50-200); Estimated Glomerular Filt Rate 31 ml/min (>60); GFR (African American) 37 ML/MIN (>60); Globulin 2.4 g/dL (1.3-3.2); Glucose 82 mg/dl (74-100); Magnesium 2.1 mg/dl (1.6-2.3); Sodium 133 mmol/L (136-145); Total Protein,Serum 5.1 g/dl (6.3-8.2)
[2022-08-01 22:38] LABS: Potassium 2.5 mmoL/L (3.5-5.1)
--- NOTE | 2022-08-01 22:39 | PC.NURSE ---
notified jeancarlos loyola of pt's critical potassium of 2.5, spike driver to place orders for runs of potassium
[2022-08-02] VITALS (20 sets, daily range): BP systolic 113–135; BP diastolic 63–78; PULSE 76–103; RESP 16–22; TEMP 36.3–37.1; O2SAT 80–97; BMI 28.8; BMI 28.7
--- NOTE | 2022-08-02 05:39 | PC.NURSE ---
notified LYNN Carranza that pt's cultures positive with gram positive cocci in clusters and staph epi noted on pcr, pt already on vanc and cefepime, no new orders at this time
[2022-08-02 06:00] LABS: Basophils % 0.2 % (0.1-2.0); Eosinophils % 0.5 % (0.1-12.0); Hemoglobin 11.1 g/dL (12.2-16.2); Lymphocytes # 1.2 K/mm3 (0.7-4.5); Mean Corpuscular HGB Conc 31.6 g/dL (31.8-35.4); Mean Corpuscular Volume 88.7 fl (81-99); Mean Platelet Volume 8.1 fl (7.4-10.4); Monocytes # 0.5 K/mm3 (0.1-1.0); Monocytes % 6.7 % (1.7-9.3); Neutrophils % 77.6 % (37.0-80.0); Platelet Count 411 K/mm3 (142-424); Red Blood Count 3.95 M/mm3 (4.20-5.40); Red Cell Distribution Width 17.1 % (11.5-17.5); White Blood Count 7.7 K/mm3 (4.8-10.8)
[2022-08-02 06:10] LABS: Alanine Aminotransferase 395 U/L (12-78); Albumin Level 2.6 g/dl (3.5-5.0); Alkaline Phosphatase 78 U/L (38-126); Anion Gap 12.7 mEq/L (5-15); Aspartate Amino Transferase 245 U/L (14-36); Bilirubin,Total 0.7 mg/dl (0.2-1.3); Blood Urea Nitrogen 41 mg/dl (7-17); Calcium 7.5 mg/dl (8.4-10.2); Carbon Dioxide 31 mmol/L (22.0-30.0); Chloride 91 mmol/L (98-107); Creatinine Clearance Estimated 57 mL/min (50-200); Estimated Glomerular Filt Rate 39 ml/min (>60); GFR (African American) 47 ML/MIN (>60); Globulin 2.5 g/dL (1.3-3.2); Glucose 81 mg/dl (74-100); Magnesium 2.2 mg/dl (1.6-2.3); Sodium 132 mmol/L (136-145); Total Protein,Serum 5.1 g/dl (6.3-8.2)
[2022-08-02 06:22] LABS: Potassium 2.7 mmoL/L (3.5-5.1)
--- NOTE | 2022-08-02 06:24 | PC.NURSE ---
notified jeancarlos Carranza of pt's critical potassium of 2.7, registered medical assistant to order runs of potassium
--- NOTE | 2022-08-02 07:53 | EXP.ACUTE.PN ---
Subjective *Date: 08/02/22 *Time: 11:20 Interval history: Patient's body temperature and blood pressure are normalized overnight. She is more interactive on exam this morning. States she is feeling little bit better. Still globally weak. Having pain in her legs but improving with lidocaine patches. Blood cultures returned overnight positive for Staph epidermidis, concern for contaminant/commensal organism however we will continue vancomycin at this time. Patient hungry and asking for something to eat. Tolerating 35% Vapotherm this morning at 15 L. Medical Exam Vital signs and Labs for Last 24 Hours: Vital Signs Temp Pulse Pulse Resp BP BP Pulse Ox 08/02/22 06:00 89 16 118/68 96 08/02/22 05:52 92 H 08/02/22 05:52 91 H 08/02/22 04:00 90 16 115/67 94 L 08/02/22 02:00 95 H 17 115/78 93 L 08/02/22 04:00 90 08/02/22 00:02 97 H 08/01/22 23:48 98.2 F 96 H 16 118/68 90 L 08/01/22 23:34 96 H 08/01/22 23:34 96 H 08/01/22 20:00 71 08/01/22 20:00 93 H 18 114/80 93 L 08/01/22 20:00 97.4 F L 08/01/22 16:00 97.4 F L 92 H 15 111/57 L 95 08/01/22 16:00 90 08/01/22 17:31 90 08/01/22 17:31 91 H 08/01/22 17:31 93 L 08/01/22 16:31 92 L 08/01/22 12:00 80 08/01/22 09:13 80 08/01/22 13:40 84 08/01/22 13:40 85 08/01/22 13:40 89 L 08/01/22 12:00 96.7 F L 08/01/22 12:01 91 L 08/01/22 10:57 88 97 08/01/22 09:22 96.5 F L 79 103/51 L 94 L 08/01/22 09:19 97.9 F 81 16 106/65 L 08/01/22 08:45 81 16 106/65 L 95 08/01/22 08:30 81 16 106/61 L 95 08/01/22 08:15 81 16 108/57 L 95 08/01/22 08:01 85 16 99/65 L 95 FiO2 08/02/22 06:00 08/02/22 05:52 08/02/22 05:52 08/02/22 04:00 08/02/22 02:00 08/02/22 04:00 08/02/22 00:02 08/01/22 23:48 08/01/22 23:34 08/01/22 23:34 08/01/22 20:00 08/01/22 20:00 08/01/22 20:00 08/01/22 16:00 40 08/01/22 16:00 08/01/22 17:31 08/01/22 17:31 08/01/22 17:31 40 08/01/22 16:31 40 08/01/22 12:00 08/01/22 09:13 08/01/22 13:40 08/01/22 13:40 08/01/22 13:40 40 08/01/22 12:00 08/01/22 12:01 40 08/01/22 10:57 50 08/01/22 09:22 08/01/22 09:19 08/01/22 08:45 08/01/22 08:30 08/01/22 08:15 08/01/22 08:01 Intake and Output 08/01/22 08/01/22 08/02/22 15:59 23:59 07:59 Intake Total 696 / 696 Output Total 400 / 550 150 / 550 500 / 500 Balance -400 / 146 546 / 146 -500 / -500 Intake: Intake, Oral Amount 240 / 240 Intake, Total IV Amount 256 / 256 0.9 % Sodium Chloride 1000ML 1, 256 / 256 000 ml @ 150 mls/hr IV .[id number] [facility] Rx#:[id number] Infusion Intake 200 / 200 KCl 20mEq/100ml 100 ml @ 50 mls 200 / 200 /hr IV Q2H [facility] Rx#:[id number] Output: Output, Urine Amount 400 / 550 150 / 550 500 / 500 Other: Number of Unmeasured Voids 0 0 Number of Bowel Movements 1 1 Weight 70.562 kg 81.193 kg Patient Weight 08/02/22 23:59 Weight 81.193 kg Laboratory Results - last 24 hr 08/01/22 02:10: TSH 2.39 08/01/22 10:01: Troponin I 0.03 08/01/22 12:50: WBC 11.8 H, RBC 4.31, Hgb 12.0 L D, Hct 37.2, MCV 86.4, MCH 27.9, MCHC 32.3, RDW 16.8, Plt Count 416, MPV 8.8, Neut % (Auto) 83.6 H, Lymph % (Auto) 9.4 L, [place] % (Auto) 6.2, Eos % (Auto) 0.6, Baso % (Auto) 0.2, Neut # (Auto) 9.8 H, Lymph # (Auto) 1.1, [place] # (Auto) 0.7, Eos # (Auto) 0.1, Baso # (Auto) 0.0 08/01/22 12:50: Sodium 132 L, Potassium 2.6 L*, Chloride 83 L, Carbon Dioxide 38 H, Anion Gap 13.6, BUN 55 H, Creatinine 2.20 H D, Estimated Creat Clear 31, Estimated GFR 23 L, Est GFR ( Amer) 28 L D, Glucose 82 D, Calcium 7.5 L, Magnesium 2.3 D, Total Bilirubin 0.7, AST 556 H* D, ALT 606 H*, Alkaline Phosphatase 87, Total Protein 5.7 L, Albumin 2.9 L D, Globulin 2.8, Albumin/Globulin
--- NOTE | 2022-08-02 08:50 | PC.NURSE ---
Orders from Dr Cosby at 0830: transfer pt out of stepdown dc LR IVF Incentive Spirometer regular diet start now.
--- NOTE | 2022-08-02 09:33 | PC.NURSE ---
lidocaine patches removed from bilateral feet at this time, new admin re-timed by pharmacy [id number]
--- NOTE | 2022-08-02 09:36 | HMH.OTEV ---
OT Inpatient Evaluation Rehab OT IP Evaluation Start: 08/02/22 07:00 Freq: ONCE Status: Active Protocol: Document 08/02/22 09:22 JESSICA (Rec: 08/02/22 09:35 JESSICA [id number]) Rehab OT IP Assessment Subjective History Ms. Rubin is a 57-year-old female with history of adult failure to thrive, COPD, hypertension. She has been at a skilled nursing for rehab due to failure to thrive. She has had several falls. Reportedly had an unwitnessed fall on Monday and was placed on neurochecks. On evaluation this morning, her oxygen saturations were 85% on 2 L and she was hypotensive. She was sent to the ER for further evaluation. Patient frankly encephalopathic on admission and unable to give any history. History obtained from family at bedside. They states she has been having more difficulty over the past several days to week at her skilled nursing. They have expressed concern that something is wrong aside from her baseline health conditions . On arrival to the ER, patient found to be hypoxic. Met criteria for severe sepsis with endorgan dysfunction and significant electrolyte disturbances. Hypotensive. Responded to IV fluids. Has maintain MAP greater than 65 with fluid resuscitation. Started on broad-spectrum antibiotics. Admitted to medicine for further management. On arrival to the floor, patient complaining of leg pain. She is hypothermic and on a Lo hugger. Responds to questions. Gives simple yes and no answers. Alert to self but disoriented to place and
--- NOTE | 2022-08-02 09:46 | PC.NURSE ---
0921 pt o2 decreased to 3lpm on nc by RT Senia Reyes
--- NOTE | 2022-08-02 09:47 | PC.NURSE ---
cleared multiple shifts
--- NOTE | 2022-08-02 10:01 | EXP.PULM.PN ---
Subjective *Date: 08/02/22 *Time: 10:44 Interval history: No acute respiratory events overnight. Patient admits continued improvement in her respiratory symptoms Pulmonology Exam Inpatient Vital signs and Labs for Last 24 Hours: Temp Pulse Resp BP Pulse Ox FiO2 98.7 F 89 20 116/70 96 40 08/02/22 08:00 08/02/22 09:14 08/02/22 09:14 08/02/22 08:00 08/02/22 09:23 08/02/22 08:40 Laboratory Results - last 24 hr 08/01/22 02:10: TSH 2.39 08/01/22 10:01: Troponin I 0.03 08/01/22 12:50: WBC 11.8 H, RBC 4.31, Hgb 12.0 L D, Hct 37.2, MCV 86.4, MCH 27.9, MCHC 32.3, RDW 16.8, Plt Count 416, MPV 8.8, Neut % (Auto) 83.6 H, Lymph % (Auto) 9.4 L, [place] % (Auto) 6.2, Eos % (Auto) 0.6, Baso % (Auto) 0.2, Neut # (Auto) 9.8 H, Lymph # (Auto) 1.1, [place] # (Auto) 0.7, Eos # (Auto) 0.1, Baso # (Auto) 0.0 08/01/22 12:50: Sodium 132 L, Potassium 2.6 L*, Chloride 83 L, Carbon Dioxide 38 H, Anion Gap 13.6, BUN 55 H, Creatinine 2.20 H D, Estimated Creat Clear 31, Estimated GFR 23 L, Est GFR ( Amer) 28 L D, Glucose 82 D, Calcium 7.5 L, Magnesium 2.3 D, Total Bilirubin 0.7, AST 556 H* D, ALT 606 H*, Alkaline Phosphatase 87, Total Protein 5.7 L, Albumin 2.9 L D, Globulin 2.8, Albumin/Globulin Ratio 1.0 L 08/01/22 13:25: PT 11.4, INR 1.06 08/01/22 13:44: Lactate 0.8 08/01/22 22:05: Sodium 133 L, Potassium 2.5 L*, Chloride 87 L, Carbon Dioxide 32 H, Anion Gap 16.5 H, BUN 47 H, Creatinine 1.70 H D, Estimated Creat Clear 41, Estimated GFR 31 L, Est GFR ( Amer) 37 L D, Glucose 82, Calcium 7.3 L, Magnesium 2.1, Total Bilirubin 0.7, AST 334 H* D, ALT 452 H*, Alkaline Phosphatase 82, Total Protein 5.1 L, Albumin 2.7 L, Globulin 2.4, Albumin/Globulin Ratio 1.1 08/02/22 05:40: WBC 7.7 D, RBC 3.95 L, Hgb 11.1 L, Hct 35.0 L, MCV 88.7, MCH 28.0, MCHC 31.6 L, RDW 17.1, Plt Count 411, MPV 8.1, Neut % (Auto) 77.6, Lymph % (Auto) 15.0, [place] % (Auto) 6.7, Eos % (Auto) 0.5, Baso % (Auto) 0.2, Neut # (Auto) 6.0, Lymph # (Auto) 1.2, [place] # (Auto) 0.5, Eos # (Auto) 0.0, Baso # (Auto) 0.0 08/02/22 05:40: Sodium 132 L, Potassium 2.7 L*, Chloride 91 L, Carbon Dioxide 31 H, Anion Gap 12.7, BUN 41 H, Creatinine 1.40 H, Estimated Creat Clear 57, Estimated GFR 39 L, Est GFR ( Amer) 47 L D, Glucose 81, Calcium 7.5 L, Magnesium 2.2, Total Bilirubin 0.7, AST 245 H D, ALT 395 H*, Alkaline Phosphatase 78, Total Protein 5.1 L, Albumin 2.6 L, Globulin 2.5, Albumin/Globulin Ratio 1.0 L I & O for Labs for Last 24 Hours: Intake & Output 07/30/22 07/31/22 08/01/22 08/02/22 23:59 23:59 23:59 23:59 Intake Total 696 / 696 1901 / 1901 Output Total 550 / 550 700 / 700 Balance 146 / 146 1201 / 1201 Weight 155 lb 9 oz 179 lb Microbiology Reports for the Last 24 Hours: Microbiology 08/01/22 02:10 Blood Blood Culture - Preliminary 08/01/22 03:50 Urine,Clean Catch Urine Culture - Preliminary NO GROWTH AFTER 24 HOURS Constitutional: Present moderate distress Head: Present normocephalic and atraumatic ENT: Present normal exam, normal oropharynx and mucous membranes moist Neck: Present normal inspection and full ROM Respiratory: Present respiratory distress and able to speak in complete sentences; Absent accessory muscle use, patient mechanically ventilated or wheezes Cardiac: Present S1/S2, Tachycardia and radial pulses present GI: Present soft and distention; Absent tenderness or guarding Rectal (female): Present deferred (female): Present deferred Skin: Present intact; Absent cyanosis or jaundice Neuro: Present alert and awake; Absent oriented x 3 Comment:: Lethargic Extremities: Present normal inspection; Absent clubbing or cyanosis Psychiatric: Present normal affect and cooperative Assessment and Plan *Assessment and plan (1) COPD exacerbation: Status: Acute Category: Medical Code(s): J44.1 - Chronic obstructive pulmonary disease with (acute) exacerbation (2) Acute respiratory failure with hypoxia:
--- NOTE | 2022-08-02 10:50 | HMH.PTEV ---
Physical Therapy Evaluation Rehab PT IP Evaluation Start: 08/02/22 07:00 Freq: ONCE Status: Active Protocol: Document 08/02/22 10:00 PHORPIA (Rec: 08/02/22 10:50 PHORNE [id number]) Subjective/History History History 57 yowf adm to [facility] with CAP, sepsis, TOMMIE. She has multiple medical problems at baseline and was brought in from a SNF. She reports she was non- ambulatory prior to adm and used w/c for all mobility. Subjective Subjective Pt reports pain and tenderness in B feet, but did nbot rate when asked. Rehab PT IP Eval Objective Appearance Patient Behavior Appropriate Patient Orientation Person,Place,Time Difficulty following instructions none Speech Pattern Clear Ambulation Patient Able to Ambulate No Balance Ability to Arise Able, uses arms to help Sitting Balance Steady, safe Standing Balance Steady, wide stance Dynamic Sitting Balance Ability Good Dynamic Standing Balance Ability Fair Transfers Bed Transfer Ability Moderate x 1 (50% assist) Chair Transfer Ability Moderate x 1 (50% assist) Sit to Stand Bed Transfer Ability Moderate x 1 (50% assist) Sit to Stand Chair Transfer Ability Moderate x 1 (50% assist) ROM All Extremities PT ROM Status WFL MMT All Extremities PT MMT WFL Abnormal MMT Grade grossly 3+/5 Rehab PT IP prob,goals,plan Problems Date of Evaluation: 08/02/22 PT IP Problems Bed Mobility,Transfers,Gait Rehab Potential Rehab Potential Good Plan PT Intervention Plan Bed Mobility,Transfers,Gait, Therapeutic Exercise PT Plan Frequency Daily Duration LOS Discharge Goals Bed Transfer Ability Minimal x 1 (25% assist) Sit to Stand Chair Transfer Ability Minimal x 1 (25% assist) Ambulation Assistive Device Rolling Walker Ambulation Distance (feet) 5 Discharge Plan PT Discharge Plan Pt is currently most appropriate for rehab placement once medically stable if she is adherent to her POC. G -code Required No Eval Complexity Eval Charge Codes 58898 - Moderate Complexity PHYSICIAN CERTIFICATION: I certify the specified therapy services for Nely Rubin are required, authorized, and reviewed every 30
--- NOTE | 2022-08-02 11:25 | PC.NURSE ---
Notified dr Cosby face to face that pt has blisters noted to the inside of her lips/mouth.
--- NOTE | 2022-08-02 12:06 | EXP.PHA.CONS ---
Pharmacy Consult Date: 08/02/22 Time: 12:06 Referring provider: DR. ROBINS Reason for Consult:: VANCOMYCIN DOSE CHANGE Allergies Allergy/AdvReac Type Severity Reaction Status Date / Time Penicillins Allergy Intermediate Hives Verified 06/13/22 11:25 Home Medications Medication Instructions Recorded Confirmed Type sumatriptan succinate 100 mg tablet 100 mg PO DAILYP PRN Migraine 06/17/22 08/01/22 History Headache albuterol sulfate 90 mcg/actuation 1 puff inhalation QIDP PRN 06/23/22 08/01/22 Rx aerosol inhaler Shortness Of Breath #90 grams amitriptyline 10 mg tablet 40 mg PO HS Depression #30 tabs 06/23/22 08/01/22 Rx budesonide-formoterol HFA 80 2 puff inhalation BID COPD #1 ea 06/23/22 08/01/22 Rx mcg-4.5 mcg/actuation aerosol inhaler (Symbicort) gabapentin 800 mg tablet 800 mg PO TID Pain #9 tabs 06/23/22 08/01/22 Rx hydrocodone 10 mg-acetaminophen 1 tab PO Q8HP PRN moderate to 06/23/22 08/01/22 Rx 325 mg tablet severe Back Pain #9 tabs levothyroxine 88 mcg tablet 88 mcg PO DAILY hypothyroid #30 06/23/22 08/01/22 Rx tabs meloxicam 15 mg tablet 15 mg PO DAILY Arthritis #30 tabs 06/23/22 08/01/22 Rx metoprolol succinate 25 mg 25 mg PO DAILY High blood pressure 06/23/22 08/01/22 Rx tablet,extended release 24 hr #60 tabs ondansetron HCl 4 mg tablet 4 mg PO Q8HP PRN Nausea And 06/23/22 08/01/22 Rx Vomiting #90 tabs polyethylene glycol 3350 17 gram 17 g PO DAILYP PRN Constipation 06/23/22 08/01/22 Rx oral powder packet (Miralax) #30 ea promethazine 25 mg tablet 25 mg PO Q8HP PRN Nausea And 06/23/22 08/01/22 Rx Vomiting #9 tabs albuterol sulfate 2.5 mg/3 mL 2.5 mg inhalation Q8HP PRN 08/01/22 08/01/22 History (0.083 %) solution for nebulization Shortness Of Breath atorvastatin 10 mg tablet 10 mg PO HS Cholesterol 08/01/22 08/01/22 History bumetanide 1 mg tablet 1 mg PO DAILY heart failure/edema 08/01/22 08/01/22 History buspirone 10 mg tablet 10 mg PO BIDP PRN Anxiety 08/01/22 08/01/22 History docusate sodium 100 mg capsule 100 mg PO Q12HP PRN Constipation 08/01/22 08/01/22 History nystatin 100,000 unit/mL oral 5 ml PO QID thrush 08/01/22 08/01/22 History suspension New Prescriptions to Start Prescriptions: Height: 1.68 m Weight: 81.1 kg Laboratory Results:: Laboratory Results - last 24 hr 08/01/22 02:10: TSH 2.39 08/01/22 12:50: WBC 11.8 H, RBC 4.31, Hgb 12.0 L D, Hct 37.2, MCV 86.4, MCH 27.9, MCHC 32.3, RDW 16.8, Plt Count 416, MPV 8.8, Neut % (Auto) 83.6 H, Lymph % (Auto) 9.4 L, [place] % (Auto) 6.2, Eos % (Auto) 0.6, Baso % (Auto) 0.2, Neut # (Auto) 9.8 H, Lymph # (Auto) 1.1, [place] # (Auto) 0.7, Eos # (Auto) 0.1, Baso # (Auto) 0.0 08/01/22 12:50: Sodium 132 L, Potassium 2.6 L*, Chloride 83 L, Carbon Dioxide 38 H, Anion Gap 13.6, BUN 55 H, Creatinine 2.20 H D, Estimated Creat Clear 31, Estimated GFR 23 L, Est GFR ( Amer) 28 L D, Glucose 82 D, Calcium 7.5 L, Magnesium 2.3 D, Total Bilirubin 0.7, AST 556 H* D, ALT 606 H*, Alkaline Phosphatase 87, Total Protein 5.7 L, Albumin 2.9 L D, Globulin 2.8, Albumin/Globulin Ratio 1.0 L 08/01/22 13:25: PT 11.4, INR 1.06 08/01/22 13:44: Lactate 0.8 08/01/22 22:05: Sodium 133 L, Potassium 2.5 L*, Chloride 87 L, Carbon Dioxide 32 H, Anion Gap 16.5 H, BUN 47 H, Creatinine 1.70 H D, Estimated Creat Clear 41, Estimated GFR 31 L, Est GFR ( Amer) 37 L D, Glucose 82, Calcium 7.3 L, Magnesium 2.1, Total Bilirubin 0.7, AST 334 H* D, ALT 452 H*, Alkaline Phosphatase 82, Total Protein 5.1 L, Albumin 2.7 L, Globulin 2.4, Albumin/Globulin Ratio 1.1 08/02/22 05:40: WBC 7.7 D, RBC 3.95 L, Hgb 11.1 L, Hct 35.0 L, MCV 88.7, MCH 28.0, MCHC 31.6 L, RDW 17.1, Plt Count 411, MPV 8.1, Neut % (Auto) 77.6, Lymph % (Auto) 15.0, [place] % (Auto) 6.7, Eos % (Auto) 0.5, Baso % (Auto) 0.2, Neut # (Auto) 6.0, Lymph # (Auto) 1.2, [place] # (Auto) 0.5, Eos # (Auto) 0.0, Baso # (Auto) 0.0 08/02/22 05:40: Sodium 132 L, Potassium 2.7 L*, Chloride 91 L, Carbon Dioxide 31 H, Anion Gap 12.7, B
--- NOTE | 2022-08-02 17:21 | PC.NURSE ---
Pt has slept off and on this shift. she is alert and oriented x 3, sometimes she is confused about the event of the day. lung sounds are clear with scattered crackles in bases. bowel sounds are active in all quads. pt has brief on at this time. nad noted. pt daughter at bedside and was updated on pt condition from this shift.
[2022-08-02 17:36] LABS: Chloride 92 mmol/L (98-107); Potassium 3.4 mmoL/L (3.5-5.1); Sodium 131 mmol/L (136-145)
[2022-08-02 17:39] LABS: Anion Gap 15.4 mEq/L (5-15); Blood Urea Nitrogen 32 mg/dl (7-17); Carbon Dioxide 27 mmol/L (22.0-30.0); Creatinine Clearance Estimated 66 mL/min (50-200); Estimated Glomerular Filt Rate 46 ml/min (>60); GFR (African American) 56 ML/MIN (>60); Glucose 81 mg/dl (74-100); Magnesium 2.1 mg/dl (1.6-2.3)
[2022-08-03] VITALS (13 sets, daily range): BP systolic 105–134; BP diastolic 59–83; PULSE 70–112; RESP 14–22; TEMP 36.4–36.9; O2SAT 92–98; BMI 28.0
--- NOTE | 2022-08-03 05:10 | PC.NURSE ---
NO ACUTE CHANGES THIS SHIFT. PT HAS NOT SLEPT MUCH THIS SHIFT. VSS. REMAINS NSR TO SINUS TACH ON TELE. LUNG SOUNDS ARE DIMINISHED WITH FINE CRACKLES AT THE BASES. PT CALLED OUT AND STATED THAT SHE HAD VOMITED THIS AM. THIS RN AND THE TECH LOOKED ALL OVER THE PT AND HER BED AND THERE WAS NOTHING THERE, PT CONTINUED TO STATED THAT SHE HAD VOMIT EVERYWHERE. PRN ZOFRAN GIVEN FOR NAUSEA. VSS. NO OTHER COMPLAINTS THIS SHIFT.
[2022-08-03 06:51] LABS: Basophils % 0.3 % (0.1-2.0); Eosinophils % 0.4 % (0.1-12.0); Hematocrit 35.3 % (37.0-47.0); Hemoglobin 11.2 g/dL (12.2-16.2); Lymphocytes # 1.1 K/mm3 (0.7-4.5); Lymphocytes % 11.4 % (10-50); Mean Corpuscular HGB Conc 31.8 g/dL (31.8-35.4); Mean Corpuscular Volume 88.1 fl (81-99); Mean Platelet Volume 8.6 fl (7.4-10.4); Monocytes # 0.6 K/mm3 (0.1-1.0); Monocytes % 6.3 % (1.7-9.3); Neutrophils # 7.9 K/mm3 (1.8-7.8); Neutrophils % 81.6 % (37.0-80.0); Platelet Count 414 K/mm3 (142-424); Red Cell Distribution Width 17.5 % (11.5-17.5); White Blood Count 9.7 K/mm3 (4.8-10.8)
[2022-08-03 06:53] LABS: Alanine Aminotransferase 269 U/L (12-78); Albumin Level 2.6 g/dl (3.5-5.0); Alkaline Phosphatase 82 U/L (38-126); Anion Gap 13.4 mEq/L (5-15); Aspartate Amino Transferase 110 U/L (14-36); Bilirubin,Total 0.5 mg/dl (0.2-1.3); Blood Urea Nitrogen 28 mg/dl (7-17); Calcium 8.2 mg/dl (8.4-10.2); Carbon Dioxide 28 mmol/L (22.0-30.0); Chloride 92 mmol/L (98-107); Creatinine Clearance Estimated 88 mL/min (50-200); Estimated Glomerular Filt Rate 65 ml/min (>60); GFR (African American) 78 ML/MIN (>60); Globulin 2.5 g/dL (1.3-3.2); Glucose 85 mg/dl (74-100); Potassium 3.4 mmoL/L (3.5-5.1); Sodium 130 mmol/L (136-145); Total Protein,Serum 5.1 g/dl (6.3-8.2)
[2022-08-03 07:10] LABS: Magnesium 1.9 mg/dl (1.6-2.3)
--- NOTE | 2022-08-03 07:46 | XR_ITS ---
FINAL REPORT CLINICAL HISTORY: Shortness of breath COMPARISON: 08/01/2022 FINDINGS: A single portable view of the chest was obtained. The heart size and pulmonary vascularity are within normal limits. The mediastinum is within normal limits. Persistent bibasilar atelectasis. There is partially improved aeration of the right lung base. Postoperative changes in lower cervical spine. The bony thorax is intact. IMPRESSION: Persistent bibasilar atelectasis. Partially improved aeration right lung base. Reviewed, Interpreted and Dictated by Reg Cardona III, MD Transcribed by Jodee Marie Authenticated and [facility]
--- NOTE | 2022-08-03 09:45 | EXP.PULM.PN ---
Subjective *Date: 08/03/22 *Time: 09:45 Pulmonology Exam Inpatient Vital signs and Labs for Last 24 Hours: Temp Pulse Resp BP Pulse Ox FiO2 97.9 F 112 H 20 119/83 94 L 40 08/03/22 08:00 08/03/22 08:00 08/03/22 08:00 08/03/22 08:00 08/03/22 08:00 08/02/22 08:40 Laboratory Results - last 24 hr 08/02/22 17:14: Sodium 131 L, Potassium 3.4 L D, Chloride 92 L, Carbon Dioxide 27, Anion Gap 15.4 H, BUN 32 H, Creatinine 1.20 H, Estimated Creat Clear 66, Estimated GFR 46 L, Est GFR ( Amer) 56 L, Glucose 81, Calcium 8.0 L, Magnesium 2.1 08/03/22 05:40: WBC 9.7 D, RBC 4.00 L, Hgb 11.2 L, Hct 35.3 L, MCV 88.1, MCH 28.0, MCHC 31.8, RDW 17.5, Plt Count 414, MPV 8.6, Neut % (Auto) 81.6 H, Lymph % (Auto) 11.4, [place] % (Auto) 6.3, Eos % (Auto) 0.4, Baso % (Auto) 0.3, Neut # (Auto) 7.9 H, Lymph # (Auto) 1.1, [place] # (Auto) 0.6, Eos # (Auto) 0.0, Baso # (Auto) 0.0 08/03/22 05:40: Magnesium 1.9 08/03/22 05:40: Sodium 130 L, Potassium 3.4 L, Chloride 92 L, Carbon Dioxide 28, Anion Gap 13.4, BUN 28 H, Creatinine 0.90 D, Estimated Creat Clear 88, Estimated GFR 65, Est GFR ( Amer) 78 D, Glucose 85, Calcium 8.2 L, Total Bilirubin 0.5, AST 110 H D, ALT 269 H D, Alkaline Phosphatase 82, Total Protein 5.1 L, Albumin 2.6 L, Globulin 2.5, Albumin/Globulin Ratio 1.0 L I & O for Labs for Last 24 Hours: Intake & Output 07/31/22 08/01/22 08/02/22 08/03/22 23:59 23:59 23:59 23:59 Intake Total 696 / 696 2901 / 2901 530 / 530 Output Total 550 / 550 800 / 800 0 / 0 Balance 146 / 146 2101 / 2101 530 / 530 Weight 155 lb 9 oz 178 lb 12.718 oz 174 lb 6 oz Microbiology Reports for the Last 24 Hours: Microbiology 08/01/22 02:10 Blood Blood Culture - Preliminary Gram Positive Cocci 08/01/22 03:50 Urine,Clean Catch Urine Culture - Final NO GROWTH AFTER 48 HOURS 08/01/22 03:10 Blood Blood Culture - Preliminary NO GROWTH AFTER 48 HOURS Assessment and Plan *Assessment and plan (1) COPD exacerbation: Status: Acute Category: Medical Code(s): J44.1 - Chronic obstructive pulmonary disease with (acute) exacerbation (2) Acute respiratory failure with hypoxia: Status: Acute Category: Medical Code(s): J96.01 - Acute respiratory failure with hypoxia (3) Severe sepsis: Status: Acute Category: Medical Code(s): A41.9 - Sepsis, unspecified organism; R65.20 - Severe sepsis without septic shock (4) HCAP (healthcare-associated pneumonia): Status: Acute Category: Medical Code(s): J18.9 - Pneumonia, unspecified organism Plan Ms. Rubin is a 57-year-old male greater than 23-yexg-vlly smoking and recent hospital admissions for hypoxic respiratory failure and generalized weakness presented to the hospital with worsening weakness and mentation and upon admission patient needing increasing oxygen requirements and pulmonary was called for further evaluation. Recent admissions for respiratory failure and weakness, May 2022 & June 2022. Mild leukocytosis neutrophilic predominant. TOMMIE upon admission with hyponatremia and hypokalemia. Significantly elevated AST and ALT. Serum Ammonia, Alk.phos and biluribin normal - Transaminits improving ABG upon admission respiratory alkalosis. Patient this morning on high flow nasal cannula, eventually weaned to 20 L 40%, will wean to nasal cannula as tolerated. CT abdomen pelvis noted to have bilateral lower lobe consolidation right greater than left. Emphysematous changes noted. On admission auscultation bilateral diffuse wheezing, initiated on DuoNebs every 6 hours on a scheduled basis. Interval update: No acute respiratory vents overnight. Weaned to nasal cannula this morning, saturating 97% at 2 L, weaned to room air. Labs personally reviewed electrolyte derangements include hyponatremia and hypokalemia management primary team. Transaminitis improvin
--- NOTE | 2022-08-03 09:53 | PC.NURSE ---
courtesy tech round: pt is up to chair. bed sheets were changed and call light is within reach
--- NOTE | 2022-08-03 13:04 | EXP.ACUTE.PN ---
Subjective *Date: 08/03/22 *Time: 13:04 Interval history: Patient continues to show improvement. Tolerating approximately 25% of p.o. intake. Getting assistance with eating, putting effort forth to try and feed herself. Feeling better this morning per her report. Denies chest pain, nausea, vomiting, diarrhea. Still having significant leg pain, this is chronic and longstanding with her neuropathy. Afebrile and hemodynamically stable. Medical Exam Vital signs and Labs for Last 24 Hours: Vital Signs Temp Pulse Pulse Resp BP Pulse Ox 08/03/22 11:39 97.9 F 104 H 14 105/78 L 92 L 08/03/22 10:38 95 08/03/22 08:00 94 L 08/03/22 08:00 97.9 F 112 H 20 119/83 93 L 08/03/22 07:35 93 L 08/03/22 04:00 98.5 F 107 H 20 115/67 92 L 08/03/22 06:10 106 H 08/03/22 06:10 108 H 08/03/22 06:10 93 L 08/03/22 04:00 110 H 08/03/22 02:00 97.5 F L 108 H 22 125/60 94 L 08/03/22 00:00 97.6 F 109 H 22 125/59 L 92 L 08/03/22 00:00 110 H 08/02/22 20:00 97.3 F L 103 H 18 113/63 92 L 08/02/22 23:36 80 08/02/22 23:36 76 08/02/22 20:00 100 H 08/02/22 20:00 97.3 F L 103 H 18 113/63 92 L 08/02/22 20:00 92 L 08/02/22 18:50 88 08/02/22 18:50 81 08/02/22 16:00 90 08/02/22 16:00 93 L 08/02/22 16:00 97.9 F 91 H 22 135/74 94 L 08/02/22 14:50 85 L Intake and Output 08/02/22 08/03/22 08/03/22 23:59 07:59 15:59 Intake Total 1000 / 2901 50 / 770 720 / 770 Output Total 0 / 800 0 / 0 Balance 1000 / 2101 50 / 770 720 / 770 Intake: Intake, Oral Amount 720 / 720 Intake, Total IV Amount 1000 / 1000 50 / 50 0.9 % Sodium Chloride 1000ML 1, 400 / 400 000 ml @ 150 mls/hr IV .[id number] [facility] Rx#:[id number] Cefepime HCl 1 gm In 0.9 % 50 / 50 Sodium Chloride 50 ml @ 100 mls /hr IV Q12H [facility] Rx#:[id number] KCl 10mEq/100ml 100 ml @ 100 300 / 300 mls/hr IV Q1H [facility] Rx#:[id number] Vancomycin HCl 1,000 mg In 0.9 300 / 300 % Sodium Chloride 250 ml @ 125 mls/hr IV Q48H [facility] Rx#:[id number] Output: Output, Urine Amount 0 / 600 0 / 0 Other: Number of Voids 0 Number of Unmeasured Voids 1 0 1 Number of Bowel Movements 1 1 Weight 79.095 kg Patient Weight 08/03/22 23:59 Weight 79.095 kg Laboratory Results - last 24 hr 08/02/22 17:14: Sodium 131 L, Potassium 3.4 L D, Chloride 92 L, Carbon Dioxide 27, Anion Gap 15.4 H, BUN 32 H, Creatinine 1.20 H, Estimated Creat Clear 66, Estimated GFR 46 L, Est GFR ( Amer) 56 L, Glucose 81, Calcium 8.0 L, Magnesium 2.1 08/03/22 05:40: WBC 9.7 D, RBC 4.00 L, Hgb 11.2 L, Hct 35.3 L, MCV 88.1, MCH 28.0, MCHC 31.8, RDW 17.5, Plt Count 414, MPV 8.6, Neut % (Auto) 81.6 H, Lymph % (Auto) 11.4, [place] % (Auto) 6.3, Eos % (Auto) 0.4, Baso % (Auto) 0.3, Neut # (Auto) 7.9 H, Lymph # (Auto) 1.1, [place] # (Auto) 0.6, Eos # (Auto) 0.0, Baso # (Auto) 0.0 08/03/22 05:40: Magnesium 1.9 08/03/22 05:40: Sodium 130 L, Potassium 3.4 L, Chloride 92 L, Carbon Dioxide 28, Anion Gap 13.4, BUN 28 H, Creatinine 0.90 D, Estimated Creat Clear 88, Estimated GFR 65, Est GFR ( Amer) 78 D, Glucose 85, Calcium 8.2 L, Total Bilirubin 0.5, AST 110 H D, ALT 269 H D, Alkaline Phosphatase 82, Total Protein 5.1 L, Albumin 2.6 L, Globulin 2.5, Albumin/Globulin Ratio 1.0 L I & O for Labs for Last 24 Hours: Intake & Output 07/31/22 08/01/22 08/02/22 08/03/22 23:59 23:59 23:59 23:59 Intake Total 696 / 696 2901 / 2901 770 / 770 Output Total 550 / 550 800 / 800 0 / 0 Balance 146 / 146 2101 / 2101 770 / 770 Weight 70.562 kg 81.1 kg 79.095 kg Microbiology Reports for the Last 24 Hours: Microbiology 08/01/22 14:06 Nose - Nasal MRSA Culture - Final 08/01/22 02:10 Blood Blood Culture - Preliminary Gram Positive Cocci 08/01/22 03:50 Urine,Clean Catch Urine Culture - Fin
--- NOTE | 2022-08-03 15:16 | DIET.NUTRFU ---
Patients po intake continues to be poor, lack of motivation. She refuses help from staff for meals except when male CBA is on. She only participates in therapy when she wants to. layout worker is working on placement for discharge. Milkshakes are inplace for extra calories and protein. BM noted daily last 3 days. labs are showing improvement. Just waiting on placement.
[2022-08-04] VITALS (8 sets, daily range): BP systolic 114–142; BP diastolic 54–88; PULSE 70–93; RESP 17–20; TEMP 36.6–36.7; O2SAT 82–97; BMI 26.1
[2022-08-04 06:26] LABS: Alanine Aminotransferase 193 U/L (12-78); Albumin Level 2.4 g/dl (3.5-5.0); Alkaline Phosphatase 75 U/L (38-126); Anion Gap 10.2 mEq/L (5-15); Aspartate Amino Transferase 68 U/L (14-36); Bilirubin,Total 0.5 mg/dl (0.2-1.3); Blood Urea Nitrogen 17 mg/dl (7-17); Carbon Dioxide 30 mmol/L (22.0-30.0); Chloride 93 mmol/L (98-107); Creatinine Clearance Estimated 103 mL/min (50-200); Estimated Glomerular Filt Rate 86 ml/min (>60); GFR (African American) 104 ML/MIN (>60); Globulin 2.5 g/dL (1.3-3.2); Glucose 95 mg/dl (74-100); Potassium 3.2 mmoL/L (3.5-5.1); Sodium 130 mmol/L (136-145); Total Protein,Serum 4.9 g/dl (6.3-8.2)
[2022-08-04 06:27] LABS: Basophils % 0.3 % (0.1-2.0); Eosinophils # 0.1 K/mm3 (0.0-0.4); Eosinophils % 0.9 % (0.1-12.0); Hemoglobin 11.2 g/dL (12.2-16.2); Lymphocytes # 1.4 K/mm3 (0.7-4.5); Lymphocytes % 17.3 % (10-50); Mean Corpuscular HGB Conc 32.1 g/dL (31.8-35.4); Mean Corpuscular Hemoglobin 28.2 pg (27.0-31.2); Mean Corpuscular Volume 87.8 fl (81-99); Mean Platelet Volume 8.4 fl (7.4-10.4); Monocytes # 0.6 K/mm3 (0.1-1.0); Monocytes % 7.4 % (1.7-9.3); Neutrophils # 6.1 K/mm3 (1.8-7.8); Neutrophils % 74.2 % (37.0-80.0); Platelet Count 397 K/mm3 (142-424); Red Blood Count 3.98 M/mm3 (4.20-5.40); Red Cell Distribution Width 17.6 % (11.5-17.5); White Blood Count 8.3 K/mm3 (4.8-10.8)
--- NOTE | 2022-08-04 07:35 | XR_ITS ---
FINAL REPORT CLINICAL HISTORY: Right foot pain COMPARISON: None FINDINGS: Two views of the right foot were obtained. There is no acute fracture or dislocation. The joint spaces are intact. There is no soft tissue abnormality. IMPRESSION: No acute fracture Reviewed, Interpreted and Dictated by Reg Cardona III, MD Transcribed by Jodee Marie Authenticated and [facility]
--- NOTE | 2022-08-04 07:35 | XR_ITS ---
FINAL REPORT CLINICAL HISTORY: Left foot pain COMPARISON: 02/17/2020 FINDINGS: Two views of the left foot were obtained. Chronic fractures of the distal 2nd through 5th metatarsals with interval further healing. There is no acute fracture or dislocation. Mild degenerative change 1st MTP. There is no soft tissue abnormality. IMPRESSION: No acute fracture. Further healing chronic fractures 2nd through 5th metatarsals. Reviewed, Interpreted and Dictated by Reg Cardona III, MD Transcribed by Jodee Marie Authenticated and [facility]
--- NOTE | 2022-08-04 09:50 | EXP.PULM.PN ---
Subjective *Date: 08/04/22 *Time: 10:54 Interval history: No acute respiratory events overnight. Patient remains on nasal cannula o2 supplementation. Denies any new respiratory complaints Pulmonology Exam Inpatient Vital signs and Labs for Last 24 Hours: Temp Pulse Resp BP Pulse Ox FiO2 98.0 F 92 H 19 138/86 93 L 40 08/04/22 08:00 08/04/22 08:00 08/04/22 08:00 08/04/22 08:00 08/04/22 08:58 08/02/22 08:40 Laboratory Results - last 24 hr 08/04/22 05:48: WBC 8.3, RBC 3.98 L, Hgb 11.2 L, Hct 35.0 L, MCV 87.8, MCH 28.2, MCHC 32.1, RDW 17.6 H, Plt Count 397, MPV 8.4, Neut % (Auto) 74.2, Lymph % (Auto) 17.3, [place] % (Auto) 7.4, Eos % (Auto) 0.9, Baso % (Auto) 0.3, Neut # (Auto) 6.1, Lymph # (Auto) 1.4, [place] # (Auto) 0.6, Eos # (Auto) 0.1, Baso # (Auto) 0.0 08/04/22 05:48: Sodium 130 L, Potassium 3.2 L, Chloride 93 L, Carbon Dioxide 30, Anion Gap 10.2, BUN 17 D, Creatinine 0.70 D, Estimated Creat Clear 103, Estimated GFR 86, Est GFR ( Amer) 104 D, Glucose 95, Calcium 8.0 L, Total Bilirubin 0.5, AST 68 H D, ALT 193 H D, Alkaline Phosphatase 75, Total Protein 4.9 L, Albumin 2.4 L, Globulin 2.5, Albumin/Globulin Ratio 1.0 L I & O for Labs for Last 24 Hours: Intake & Output 08/01/22 08/02/22 08/03/22 08/04/22 23:59 23:59 23:59 23:59 Intake Total 696 / 696 2901 / 2901 1010 / 1010 100 / 100 Output Total 550 / 550 800 / 800 0 / 0 0 / 0 Balance 146 / 146 2101 / 2101 1010 / 1010 100 / 100 Weight 155 lb 9 oz 178 lb 12.718 oz 174 lb 6 oz 162 lb 6.4 oz Microbiology Reports for the Last 24 Hours: Microbiology 08/01/22 02:10 Blood Blood Culture - Final Staphylococcus epidermidis 08/01/22 14:06 Nose - Nasal MRSA Culture - Final Constitutional: Present moderate distress Head: Present normocephalic and atraumatic ENT: Present normal exam, normal oropharynx and mucous membranes moist Neck: Present normal inspection and full ROM Respiratory: Present respiratory distress and able to speak in complete sentences; Absent accessory muscle use, patient mechanically ventilated or wheezes Cardiac: Present S1/S2, Tachycardia and radial pulses present GI: Present soft and distention; Absent tenderness or guarding Rectal (female): Present deferred (female): Present deferred Skin: Present intact; Absent cyanosis or jaundice Neuro: Present alert and awake; Absent oriented x 3 Comment:: Lethargic Extremities: Present normal inspection; Absent clubbing or cyanosis Psychiatric: Present normal affect and cooperative Assessment and Plan *Assessment and plan (1) COPD exacerbation: Status: Acute Category: Medical Code(s): J44.1 - Chronic obstructive pulmonary disease with (acute) exacerbation (2) Acute respiratory failure with hypoxia: Status: Acute Category: Medical Code(s): J96.01 - Acute respiratory failure with hypoxia (3) Severe sepsis: Status: Acute Category: Medical Code(s): A41.9 - Sepsis, unspecified organism; R65.20 - Severe sepsis without septic shock (4) HCAP (healthcare-associated pneumonia): Status: Acute Category: Medical Code(s): J18.9 - Pneumonia, unspecified organism Plan Ms. Rubin is a 57-year-old male greater than 13-eunz-nkco smoking and recent hospital admissions for hypoxic respiratory failure and generalized weakness presented to the hospital with worsening weakness and mentation and upon admission patient needing increasing oxygen requirements and pulmonary was called for further evaluation. Recent admissions for respiratory failure and weakness, May 2022 & June 2022. Mild leukocytosis neutrophilic predominant. TOMMIE upon admission with hyponatremia and hypokalemia. Significantly elevated AST and ALT. Serum Ammonia, Alk.phos and biluribin normal - Transaminits improving ABG upon admission respiratory alkalosis. Patient this morning on high flow nasal cannula, eventually weaned to 20 L 40%, will
--- NOTE | 2022-08-04 14:36 | EXP.ACUTE.PN ---
Subjective *Date: 08/04/22 *Time: 14:55 Interval history: Patient afebrile this morning. Tolerating p.o. intake. Stable on 2 L nasal cannula. Alert x3. Family at bedside. Updated of plan. Denies chest pain, nausea, vomiting. Continues to have significant foot pain. States she is feeling okay. Medical Exam Vital signs and Labs for Last 24 Hours: Vital Signs Temp Pulse Pulse Resp BP Pulse Ox 08/04/22 11:48 98.1 F 87 20 142/88 H 94 L 08/04/22 08:30 87 94 L 08/04/22 08:00 94 L 08/04/22 08:58 93 L 08/04/22 08:00 98.0 F 92 H 19 138/86 82 L 08/04/22 04:00 98.1 F 93 H 17 114/70 96 08/04/22 00:13 70 08/04/22 00:13 74 08/03/22 20:00 98 F 70 16 134/64 98 08/03/22 18:21 71 08/03/22 18:21 75 08/03/22 18:21 94 L 08/03/22 16:00 97.6 F 95 H 18 116/70 92 L 08/03/22 16:00 93 L Intake and Output 08/03/22 08/04/22 08/04/22 23:59 07:59 15:59 Intake Total 240 / 1010 100 / 100 Output Total 0 / 0 0 / 0 Balance 240 / 1010 100 / 100 0 / 100 Intake: Intake, Oral Amount 240 / 960 Intake, Total IV Amount 100 / 100 Cefepime HCl 1 gm In 0.9 % 100 / 100 Sodium Chloride 50 ml @ 100 mls /hr IV Q12H [facility] Rx#:[id number] Output: Output, Urine Amount 0 / 0 0 / 0 Other: Number of Voids 1 Number of Unmeasured Voids 2 1 1 Number of Bowel Movements 1 1 1 Weight 73.663 kg Patient Weight 08/04/22 23:59 Weight 73.663 kg Laboratory Results - last 24 hr 08/04/22 05:48: WBC 8.3, RBC 3.98 L, Hgb 11.2 L, Hct 35.0 L, MCV 87.8, MCH 28.2, MCHC 32.1, RDW 17.6 H, Plt Count 397, MPV 8.4, Neut % (Auto) 74.2, Lymph % (Auto) 17.3, [place] % (Auto) 7.4, Eos % (Auto) 0.9, Baso % (Auto) 0.3, Neut # (Auto) 6.1, Lymph # (Auto) 1.4, [place] # (Auto) 0.6, Eos # (Auto) 0.1, Baso # (Auto) 0.0 08/04/22 05:48: Sodium 130 L, Potassium 3.2 L, Chloride 93 L, Carbon Dioxide 30, Anion Gap 10.2, BUN 17 D, Creatinine 0.70 D, Estimated Creat Clear 103, Estimated GFR 86, Est GFR ( Amer) 104 D, Glucose 95, Calcium 8.0 L, Total Bilirubin 0.5, AST 68 H D, ALT 193 H D, Alkaline Phosphatase 75, Total Protein 4.9 L, Albumin 2.4 L, Globulin 2.5, Albumin/Globulin Ratio 1.0 L I & O for Labs for Last 24 Hours: Intake & Output 08/01/22 08/02/22 08/03/22 08/04/22 23:59 23:59 23:59 23:59 Intake Total 696 / 696 2901 / 2901 1010 / 1010 100 / 100 Output Total 550 / 550 800 / 800 0 / 0 0 / 0 Balance 146 / 146 2101 / 2101 1010 / 1010 100 / 100 Weight 70.562 kg 81.1 kg 79.095 kg 73.663 kg Microbiology Reports for the Last 24 Hours: Microbiology 08/02/22 13:02 Blood Blood Culture - Preliminary NO GROWTH AFTER 48 HOURS 08/02/22 12:51 Blood Blood Culture - Preliminary NO GROWTH AFTER 48 HOURS 08/01/22 02:10 Blood Blood Culture - Final Staphylococcus epidermidis 08/01/22 14:06 Nose - Nasal MRSA Culture - Final Constitutional: Present no acute distress, average body habitus and chronically ill appearing Head: Present atraumatic and normocephalic ENT: Present normal exam and mucous membranes moist Neck: Present normal inspection Respiratory: Present normal respiratory effort; Absent rhonchi, wheezes or crackles Cardiac: Present Reg Rate and Rhythm GI: Present normal bowel sounds; Absent tenderness Extremities: Present normal inspection and full ROM Skin: Present intact; Absent erythema Neuro: Present Grossly Intact, alert, awake, oriented x 3 and moves all extremities Comment:: globally weak Assessment and Plan *Assessment and plan (1) HCAP (healthcare-associated pneumonia): Status: Acute Category: Medical Code(s): J18.9 - Pneumonia, unspecified organism (2) Respiratory failure with hypoxia and hypercapnia: Status: Acute Category: Medical Code(s): J96.91 - Respiratory failure, unspecified with hyp
--- NOTE | 2022-08-04 16:03 | EXP.BH.CONS ---
History of Present Illness *Admission Date: 08/01/22 *History of present illness: Patient interviewed; at bedside. -she is alone in her room -she states that she is here cause she is not in the shape that everyone wants her to be in -that they want her to be optimistic and look at the bright side of things -she states that she doesn't feel she can do this -she states that she is not ready for the next step -when asked what the next step is; she states total rehabilitation -states she can't care for herself -that she can't walk; stumbles; and is weak -and thinks slowly by slowly she was getting worse at [facility] She states that before she went to the assisted she was living at home with a roommate. she states that it wasn't well there either. She had been 'starting to shut down' for about a month or two. She states that when her body was shutting down on her; this led to depression. This is something she has dealt with since her 30s; just related to life. She states that she doesn't really feel depressed now. -she is just having issues with one of her kids -she states that they are not seeing eye to eye -her daugher wants her to do the rehab -but Nely wants to go and take a break and stay with her mom for a little while -she states that her mom lives in [place] -and it has been a while since she has visited with her mom for days -she states that her mom is healthy and could actually help her some She states that her family worries about her. -cause she has declined so much -she states that she can't get up and walk around -cause she is so weak -loss of muscle mass -she states that she does want to get better -but she is tired of fighting -she states that she doesn't want to fight so hard for her body to cooperate with her She states that the last medicines she took for anxiety and depression was Viibryd and Vraylar. -she was seeing Jodee Monreal at [facility] [place] in [place]; they have closed down -she states that she didn't see her medicines helped her -so she stopped the cold turkey -estimates that she stopped them 3-4 months ago; but not really sure Denies ever having any SI/HI. -denies any current SI/SH/HI/AVH PFSH PFSH Disclaimer: The information contained in this section may have been updated after the patient was seen, as this information can be updated by other users. Medical History (Updated 08/04/22 @ 16:20 by Poornima Schwarz APRN) Abnormal Electrocardiogram Acute respiratory failure with hypoxia Chest pain COPD exacerbation Dyspnea Elevated TSH HAP (hospital-acquired pneumonia) Hyperlipidemia (~01/02/18) Major depressive disorder Family History No significant family history Social History Smoking Status: Unknown if ever smoked second hand exposure: Yes alcohol intake: never substance use type: denies use current occupational status: other Travel in the last 8 weeks: None household members: significant other housing: house caffeine: No Review of Systems Review of Systems Review of systems:: other Psychiatric Psychiatric: Reports anhedonia, Reports depression and Reports hopelessness Meds Home Medications and Allergies Home Medications Medication Instructions Recorded Confirmed Type albuterol sulfate 90 mcg/actuation 1 puff inhalation QIDP PRN 06/23/22 08/01/22 Rx aerosol inhaler Shortness Of Breath #90 grams budesonide-formoterol HFA 80 2 puff inhalation BID COPD #1 ea 06/23/22 08/01/22 Rx mcg-4.5 mcg/actuation aerosol inhaler (Symbicort) levothyroxine 88 mcg tablet 88 mcg PO DAILY hypothyroid #30 06/23/22 08/01/22 Rx tabs meloxicam 15 mg tablet 15 mg PO DAILY Arthritis #30 tabs 06/23/22 08/01/22 Rx metoprolol succinate 25 mg 25 mg PO DAILY High blood pressure 06/23/22 08/01/22 Rx tablet,extended release 24 hr #60 tabs ondansetron HCl 4 mg tab
--- NOTE | 2022-08-04 19:07 | PC.WOUNDNOTE ---
redness to (r) BUTTOCK REDNESS TO (R) SIDE OF NECK AND BACK
[2022-08-05] VITALS: BP 117/65; PULSE 95; RESP 20; TEMP 36.8; O2SAT 95
--- NOTE | 2022-08-05 00:59 | PC.NURSE ---
RECEIVED REPORT FROM CHANO JACOBSON AT 0100.
[2022-08-05 04:00] VITALS: BP 123/66; PULSE 97; RESP 20; TEMP 36.5; O2SAT 90; BMI 26.2
--- NOTE | 2022-08-05 07:27 | EXP.DC.SUM ---
General Admission date:: 08/01/22 Discharge date: 08/05/22 HPI HPI HPI: Ms. Rubin is a 57-year-old female with history of adult failure to thrive, COPD, hypertension. She has been at a half-way for rehab due to failure to thrive. She has had several falls. Reportedly had an unwitnessed fall on Monday and was placed on neurochecks. On evaluation this morning, her oxygen saturations were 85% on 2 L and she was hypotensive. She was sent to the ER for further evaluation. Patient frankly encephalopathic on admission and unable to give any history. History obtained from family at bedside. They states she has been having more difficulty over the past several days to week at her half-way. They have expressed concern that something is wrong aside from her baseline health conditions. On arrival to the ER, patient found to be hypoxic. Met criteria for severe sepsis with endorgan dysfunction and significant electrolyte disturbances. Hypotensive. Responded to IV fluids. Has maintain MAP greater than 65 with fluid resuscitation. Started on broad-spectrum antibiotics. Admitted to medicine for further management. On arrival to the floor, patient complaining of leg pain. She is hypothermic and on a Lo hugger. Responds to questions. Gives simple yes and no answers. Alert to self but disoriented to place and time. Hospital Course Hospital Course Hospital Course: 57-year-old female who presented from her half-way with severe sepsis.? Image findings of pneumonia.? Also found to have significant metabolic alkalosis in the setting of TOMMIE, electrolyte disturbances, and volume depletion (contraction).? Patient clinically improving, stable for discharge to rehab for further care. Plan to complete 7 days of antibiotics total. Pulmonology consulted during admission to assist with care.? Problems addressed as follows: Severe sepsis Healthcare acquired pneumonia -Hypothermic, tachycardic, tachypneic, pneumonia on imaging on presentation. Started on broad-spectrum antibiotics. Symptoms have defervesced and patient has been maintaining blood pressure and body temperature for over 72 hours. Plan to continue antibiotics for total of 7 days. Initially on cefepime, will transition to Levaquin to complete course. Blood cultures had 1 positive for staph epidermidis, consistent with contaminant. Repeat cultures remain negative. Continuing supplemental oxygen for her pneumonia, on 3 L at this time. Goal saturation greater 90%. Last day of antibiotics will be 08/07 TOMMIE Metabolic alkalosis Hyponatremia, hypochloremia, hypokalemia, hypomagnesemia -All consistent with hypovolemia/prerenal and contraction. Significant improvement from admission. Renal function has now normalized. Electrolytes doing better. Sodium still low but improving. BUN and bicarb within normal range. Alkalosis has resolved. Magnesium and potassium improving. Continuing potassium supplementation. Transaminitis -Liver enzymes elevated with AST 1059 and ALT 934 on admission, consistent with hepatocellular injury pattern. I have seen gradual improvement with resolution of her sepsis. Liver enzymes normalized. Resume statin. Depression -Resumed amitriptyline. Decrease the dosage. We will start Cymbalta for benefit with depression and neuropathy. Behavioral health consult placed, appreciate their recommendations foot pain - Hx of neuropathy and foot fractures. Repeat Xrays obtained on 08/04. No new fractures. Still see healing in her left foot however bones appear stable. Pain most consistent with neuropathy. Treating with gabapentin and Cymbalta. Continue lidocaine patches and meloxicam as well. Chronic opiate use -Prior to coming in, patient was on 30 mg hydrocodone daily. Has not had pain medication for at least 5 days. Is having some loose stools and nausea, suspect this is related to opiate withdrawal. Will send home on opiate taper. Recommend hydrocodone 5 mg 1
[2022-08-05 07:48] LABS: Basophils % 0.3 % (0.1-2.0); Eosinophils # 0.1 K/mm3 (0.0-0.4); Eosinophils % 1.4 % (0.1-12.0); Hematocrit 37.2 % (37.0-47.0); Hemoglobin 11.7 g/dL (12.2-16.2); Lymphocytes # 1.2 K/mm3 (0.7-4.5); Lymphocytes % 12.6 % (10-50); Mean Corpuscular HGB Conc 31.3 g/dL (31.8-35.4); Mean Corpuscular Hemoglobin 27.6 pg (27.0-31.2); Mean Corpuscular Volume 87.9 fl (81-99); Mean Platelet Volume 7.9 fl (7.4-10.4); Monocytes # 0.6 K/mm3 (0.1-1.0); Monocytes % 6.6 % (1.7-9.3); Neutrophils # 7.4 K/mm3 (1.8-7.8); Neutrophils % 79.1 % (37.0-80.0); Platelet Count 384 K/mm3 (142-424); Red Blood Count 4.23 M/mm3 (4.20-5.40); Red Cell Distribution Width 17.6 % (11.5-17.5); White Blood Count 9.4 K/mm3 (4.8-10.8)
[2022-08-05 08:00] VITALS: BP 111/65; PULSE 98; RESP 18; TEMP 36.9; O2SAT 4; O2SAT 95
[2022-08-05 08:06] LABS: Chloride 93 mmol/L (98-107); Sodium 130 mmol/L (136-145)
[2022-08-05 08:07] LABS: Potassium 3.3 mmoL/L (3.5-5.1)
[2022-08-05 08:09] LABS: Alanine Aminotransferase 151 U/L (12-78); Albumin Level 2.4 g/dl (3.5-5.0); Alkaline Phosphatase 79 U/L (38-126); Anion Gap 9.3 mEq/L (5-15); Aspartate Amino Transferase 54 U/L (14-36); Bilirubin,Total 0.4 mg/dl (0.2-1.3); Blood Urea Nitrogen 9 mg/dl (7-17); Carbon Dioxide 31 mmol/L (22.0-30.0); Creatinine Clearance Estimated 104 mL/min (50-200); Estimated Glomerular Filt Rate 86 ml/min (>60); GFR (African American) 104 ML/MIN (>60); Globulin 2.5 g/dL (1.3-3.2); Glucose 97 mg/dl (74-100); Total Protein,Serum 4.9 g/dl (6.3-8.2)
--- NOTE | 2022-08-05 09:26 | EXP.PULM.PN ---
Subjective *Date: 08/05/22 *Time: 11:53 Interval history: No acute respiratory vents overnight. Patient currently admitted in stable oxygen requirements. Pulmonology Exam Inpatient Vital signs and Labs for Last 24 Hours: Temp Pulse Resp BP Pulse Ox FiO2 98.4 F 98 H 18 111/65 95 40 08/05/22 08:00 08/05/22 08:00 08/05/22 08:00 08/05/22 08:00 08/05/22 08:00 08/02/22 08:40 Laboratory Results - last 24 hr 08/05/22 07:36: WBC 9.4, RBC 4.23, Hgb 11.7 L, Hct 37.2, MCV 87.9, MCH 27.6, MCHC 31.3 L, RDW 17.6 H, Plt Count 384, MPV 7.9, Neut % (Auto) 79.1, Lymph % (Auto) 12.6, [place] % (Auto) 6.6, Eos % (Auto) 1.4, Baso % (Auto) 0.3, Neut # (Auto) 7.4, Lymph # (Auto) 1.2, [place] # (Auto) 0.6, Eos # (Auto) 0.1, Baso # (Auto) 0.0 08/05/22 07:36: Sodium 130 L, Potassium 3.3 L, Chloride 93 L, Carbon Dioxide 31 H, Anion Gap 9.3, BUN 9 D, Creatinine 0.70, Estimated Creat Clear 104, Estimated GFR 86, Est GFR ( Amer) 104, Glucose 97, Calcium 8.0 L, Total Bilirubin 0.4, AST 54 H, ALT 151 H, Alkaline Phosphatase 79, Total Protein 4.9 L, Albumin 2.4 L, Globulin 2.5, Albumin/Globulin Ratio 1.0 L I & O for Labs for Last 24 Hours: Intake & Output 08/02/22 08/03/22 08/04/22 08/05/22 23:59 23:59 23:59 23:59 Intake Total 2901 / 2901 1010 / 1010 220 / 220 60 / 60 Output Total 800 / 800 0 / 0 0 / 0 Balance 2101 / 2101 1010 / 1010 220 / 220 60 / 60 Weight 178 lb 12.718 oz 174 lb 6 oz 162 lb 6.4 oz 163 lb 4.8 oz Microbiology Reports for the Last 24 Hours: Microbiology 08/02/22 13:02 Blood Blood Culture - Preliminary NO GROWTH AFTER 48 HOURS 08/02/22 12:51 Blood Blood Culture - Preliminary NO GROWTH AFTER 48 HOURS 08/01/22 02:10 Blood Blood Culture - Final Staphylococcus epidermidis Constitutional: Present mild distress Head: Present normocephalic and atraumatic ENT: Present normal exam, normal oropharynx and mucous membranes moist Neck: Present normal inspection and full ROM Respiratory: Present respiratory distress and able to speak in complete sentences; Absent accessory muscle use, patient mechanically ventilated or wheezes Cardiac: Present S1/S2, Tachycardia and radial pulses present GI: Present soft and distention; Absent tenderness or guarding Rectal (female): Present deferred (female): Present deferred Skin: Present intact; Absent cyanosis or jaundice Neuro: Present alert and awake; Absent oriented x 3 Comment:: Lethargic Extremities: Present normal inspection; Absent clubbing or cyanosis Psychiatric: Present normal affect and cooperative Assessment and Plan *Assessment and plan (1) COPD exacerbation: Status: Acute Category: Medical Code(s): J44.1 - Chronic obstructive pulmonary disease with (acute) exacerbation (2) Acute respiratory failure with hypoxia: Status: Acute Category: Medical Code(s): J96.01 - Acute respiratory failure with hypoxia (3) Severe sepsis: Status: Acute Category: Medical Code(s): A41.9 - Sepsis, unspecified organism; R65.20 - Severe sepsis without septic shock (4) HCAP (healthcare-associated pneumonia): Status: Acute Category: Medical Code(s): J18.9 - Pneumonia, unspecified organism Plan Ms. Rubin is a 57-year-old male greater than 37-[id number]-brey smoking and recent hospital admissions for hypoxic respiratory failure and generalized weakness presented to the hospital with worsening weakness and mentation and upon admission patient needing increasing oxygen requirements and pulmonary was called for further evaluation. Recent admissions for respiratory failure and weakness, May 2022 & June 2022. Mild leukocytosis neutrophilic predominant. TOMMIE upon admission with hyponatremia and hypokalemia. Significantly elevated AST and ALT. Serum Ammonia, Alk.phos and biluribin normal - Transaminits improving ABG upon admission respirator
--- NOTE | 2022-08-05 09:31 | PC.NURSE ---
COURTESY TECH NOTE; ROUNDED ON PT 0800, PT DENIED NEED FOR RESTROOM, NEED TO REPOSITION. PT STATED SHE HAS A GROSS TASTE IN HER MOUTH. ORAL CARE OFFERED, PT REFUSED. ASSISTED PT WITH DRINK, CALL LIGHT WITHIN REACH, NO FURTHER REQUESTS AT THIS TIME. Mari GUERRERO, SRNA
--- NOTE | 2022-08-05 10:01 | DIET.NUTRFU ---
RD saw patient this morning about her meal refusals. She refused all meals yesterday. She reports she sipped on homemade shake. RD expressed how important meal intake is to improve overall health and recovery. Patient reports nausea and her nerves being shot effecting her appetite. Zofran is ordered for nausea PRN, only received yesterday at 6pm. Encouraged patient to report her nausea to nursing so they can address. Denied constipation or diarrhea, LBM 5/18. Reviewed her lunch selection and she agreed to try chicken tenders/mashed potatoes and chicken noodle soup. 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 She is independent with meals, but need lots of encouragement. She has lack of motivation for meals/therapy.
--- NOTE | 2022-08-05 10:25 | XR_ITS ---
FINAL REPORT CLINICAL HISTORY: SOA, former smoker (quit x 2 yrs ago). COMPARISON: 08/03/2022 FINDINGS: SINGLE-VIEW CHEST The heart size is normal. The mediastinum is normal. There is persistent mild bibasilar atelectasis. There is no pneumothorax. IMPRESSION: Persistent mild bibasilar atelectasis. Reviewed, Interpreted and Dictated by Reg Cardona III, MD Transcribed by Shea Newman Authenticated and [facility]
--- NOTE | 2022-08-05 11:03 | CARE MANAGER ---
Patient requires positioning of the body in ways not feasible with an ordinary bed in order to alleviate pain. KAVON Cheek
[2022-08-05 12:00] VITALS: BP 122/66; PULSE 92; RESP 18; TEMP 36.7; O2SAT 97
--- NOTE | 2022-08-08 14:05 | CARE MANAGER ---
Spoke with Patient's related to patient's hospital discharge. She states that the patient is doing much better. They are aware of follow up appointments and deny any questions or concerns. KAVON Cheek
[2022-08-12 16:01] LABS: Renin Activity, Plasma 25.762 ng/mL/hr (0.167-5.380)
== END 2022-08-05 15:30 | disposition home health service (06) | DRG 871 ==
LOC: ER 02:14 → 2ND 08:04
PROVIDERS: Internal Medicine Pulmonary Disease; Admitting Provider Internal Medicine Adolescent Medicine; Emergency Provider Emergency Medicine; PCP Internal Medicine Adolescent Medicine; Visit Provider Internal Medicine Adolescent Medicine
DX: A41.9 Sepsis, unspecified organism (principal); J18.9 Pneumonia, unspecified organism; J96.92 Respiratory failure, unspecified with hypercapnia; J96.91 Respiratory failure, unspecified with hypoxia; J44.1 Chronic obstructive pulmonary disease with (acute) exacerbation; G93.40 Encephalopathy, unspecified; E87.3 Alkalosis; E87.1 Hypo-osmolality and hyponatremia; R65.20 Severe sepsis without septic shock; Y95 Nosocomial condition; E87.6 Hypokalemia; F32.A Depression, unspecified; F17.200 Nicotine dependence, unspecified, uncomplicated; E86.9 Volume depletion, unspecified; R74.01 Elevation of levels of liver transaminase levels; Z79.891 Long term (current) use of opiate analgesic
CPT/HCPCS: 36415; 51702; 70450; 71045; 72125; 72170; 73620; 74176; 76705; 80048; 80053; 81001; 82088; 82140; 82803; 83605; 83735; 83880; 84145; 84244; 84443; 84484; 85007; 85025; 85610; 85651; 86140; 87040; 87077; 87081; 87086; 87186; 87507; 87636; 93005; 94640; 94760; 94761; 97162; 97165; 97530; 99291; C9803; J0692; J0696; J1956; J2405; J3370; U0003; U0005